=== PATIENT | male | born 1955 | race American Indian/Alaskan Native ===

== ENCOUNTER 2019-05-01 22:22 | Inpatient (IN) | payer MEDICARE ==
[2019-05-01] MEDS ORDERED: AMIDATE IV ONE (22:25)
[2019-05-01] MEDS ORDERED: ZEMURON IV ONE (22:25)
[2019-05-01] MEDS ORDERED: NACL 0.9% 1000 ML 1,000 ML ONE (22:35)
[2019-05-01] MEDS ORDERED: NACL 0.9% 1000 ML 1,000 ML IV ONE (22:49)
[2019-05-01] MEDS ORDERED: CORDARONE 900 MG in D5W 482 ML IV ONE (23:00)
[2019-05-01] MEDS ORDERED: CORDARONE 900 MG in NACL 0.9% 500 ML 482 ML IV ONE (23:00)
--- NOTE | 2019-05-01 23:02 | Emergency Department Report ---
ED Altered Mental Status HPI - General Stated Complaint: UNRESPONSIVE Time Seen by Provider: 05/01/19 22:49 Source: EMS - History of Present Illness Initial Comments: Patient is 63 years old male with history of CVA, status post tracheostomy and PEG tube which was removed. Patient also had history of seizures. Patient brought to the emergency room via EMS. EMS stated that the initial call came as seizure and when they arrived patient was seizing. EMS stated that he was given 5 mg of Versed and then patient stopped breathing and they started bagging the patient. EMS stated that patient found to be in SVT with a heart rate of 180 patient given adenosine 6 mg and then 12 mg. Upon arrival to the emergency room patient is unresponsive even to deep painful stimuli. Patient immediately intubated by me using a Glidoscope. Patient received synchronized cardioversion, 50 J with no response. Patient then responded to amiodarone 150 mg IV push. MD Complaint: altered mental status, decreased responsiveness -: Sudden - Related Data Home Medications Medication Instructions Recorded Confirmed Last Taken Baclofen [Lioresal] 10 mg PO TID 05/02/19 05/02/19 Unknown Potassium Chloride [K-Dur] 20 meq PO QDAY 05/02/19 05/02/19 Unknown Rivaroxaban [Xarelto] 20 mg PO QDAY 05/02/19 05/02/19 Unknown levETIRAcetam [Keppra TAB] 1,000 mg PO BID 05/02/19 05/02/19 Unknown Allergies Allergy/AdvReac Type Severity Reaction Status Date / Time No Known Allergies Allergy Unverified 05/01/19 22:41 ED Review of Systems ROS: Stated complaint: UNRESPONSIVE Other details as noted in HPI Comment: Unobtainable due to pts medical conditions ED Past Medical Hx - Medications Home Medications: Home Medications Medication Instructions Recorded Confirmed Last Taken Type Baclofen [Lioresal] 10 mg PO TID 05/02/19 05/02/19 Unknown History Potassium Chloride [K-Dur] 20 meq PO QDAY 05/02/19 05/02/19 Unknown History Rivaroxaban [Xarelto] 20 mg PO QDAY 05/02/19 05/02/19 Unknown History levETIRAcetam [Keppra TAB] 1,000 mg PO BID 05/02/19 05/02/19 Unknown History ED Physical Exam - General General appearance: obtunded - Head Head exam: Present: atraumatic, normocephalic, normal inspection - Eye Eye exam: Present: normal appearance - ENT ENT exam: Present: normal exam, normal orophraynx, mucous membranes moist - Neck Neck exam: Present: normal inspection - Respiratory Respiratory exam: Present: normal lung sounds bilaterally - Cardiovascular Cardiovascular Exam: Present: regular rate, normal rhythm, normal heart sounds - GI/Abdominal GI/Abdominal exam: Present: soft, normal bowel sounds. Absent: distended, gu arding, rebound, rigid, mass, bruit, pulsatile mass, hernia - Extremities Exam Extremities exam: Present: normal inspection - Back Exam Back exam: Present: normal inspection, full ROM - Neurological Exam Neurological exam: Present: altered - Level of Consciousness 1a. Level of Consciousness: coma/unresponsive - LOC Questions 1b. LOC Questions: answers no questions correctly - LOC Command 1c. LOC Commands: performs no tasks correctly - Best Gaze 2. Best Gaze: normal - Visual 3. Visual: no visual loss - Facial Palsy 4. Facial Palsy: normal symmetrical movement - Motor Arm 5a. Motor Arm Left: drift 5b. Motor Arm Right: drift - Motor Leg 6a. Motor Leg Left: drift 6b. Motor Leg Right: drift - Limb Ataxia 7. Limb Ataxia: absent - Sensory 8. Sensory: coma/unresponsive - Best Language 9. Best Language: mute/global aphasia - Dysarthria 10. Dysarthria: intubated or other barrier - Extinction and Inattention 11. Extinction/Inattention: no abnormality - Scoring Total Score: 16 Stroke Severity: Moderate to Severe Stroke ED Course Vital Signs 05/01/19 05/01/19 05/01/19 22:26 22:30 22:45 Temperature Pulse Rate 143 H 179 H 169 H Respiratory 15 11 L Rate Blood Pressure 122/92 154/114 O2 Sat by Pulse Oximetry 05/01/19 05/01/19 05/01/19 23:00 23:15 23:31 Temperature Pulse Rate 170 H 165 H 169 H Respiratory 18 18 20 Rate Blood Pressure 147/111 164/121 146/116 O2 Sat by Pulse Oximetry 05/01/19 05/02/19 05/02/19 23:45 00:00 00:27 Temperature Pulse Rate 159 H 167 H 180 H Respiratory 18 18 14 Rate Blood Pressure 156/120 169/124 169/124 O2 Sat by Pulse Oximetry 05/02/19 05/02/19 05/02/19 00:31 00:45 01:01 Temperature Pulse Rate 160 H 155 H 118 H Respiratory 18 27 H 20 Rate Blood Pressure 169/124 147/109 147/109 O2 Sat by Pulse Oximetry 05/02/19 05/02/19 05/02/19 01:15 02:55 02:57 Temperature Pulse Rate 115 H 100 H 97 H Respiratory 23 21 24 Rate Blood Pressure 169/124 116/75 112/73 O2 Sat by Pulse Oximetry 05/02/19 05/02/19 05/02/19 02:59 03:00 03:01 Temperature Pulse Rate 95 H 100 H 100 H Respiratory 21 24 24 Rate Blood Pressure 112/73 108/73 108/73 O2 Sat by Pulse Oximetry 05/02/19 05/02/19 05/02/19 03:02 03:03 03:05 Temperature Pulse Rate 98 H 98 H 100 H Respiratory 24 24 24 Rate Blood Pressure 109/70 109/70 109/66 O2 Sat by Pulse Oximetry 05/02/19 05/02/19 05/02/19 03:07 03:08 03:09 Temperature Pulse Rate 100 H 94 H 94 H Respiratory 24 24 24 Rate Blood Pressure 109/66 111/67 111/67 O2 Sat by Pulse Oximetry 05/02/19 05/02/19 05/02/19 03:11 03:12 03:13 Temperature Pulse Rate 95 H 96 H 99 H Respiratory 21 24 24 Rate Blood Pressure 111/67 115/71 115/71 O2 Sat by Pulse Oximetry 05/02/19 05/02/19 05/02/19 03:14 03:15 03:17 Temperature Pulse Rate 96 H 93 H 98 H Respiratory 24 24 24 Rate Blood Pressure 116/72 116/72 116/72 O2 Sat by Pulse Oximetry 05/02/19 05/02/19 05/02/19 03:18 03:19 03:20 Temperature Pulse Rate 95 H 96 H 100 H Respiratory 24 21 24 Rate Blood Pressure 120/74 120/74 121/77 O2 Sat by Pulse Oximetry 05/02/19 05/02/19 05/02/19 03:21 03:23 03:24 Temperature Pulse Rate 96 H 94 H 95 H Respiratory 24 24 24 Rate Blood Pressure 121/77 121/77 121/79 O2 Sat by Pulse Oximetry 05/02/19 05/02/1905/02/19 03:25 03:27 03:29 Temperature Pulse Rate 96 H 97 H 93 H Respiratory 18 24 24 Rate Blood Pressure 121/79 112/72 122/73 O2 Sat by Pulse Oximetry 05/02/19 05/02/19 05/02/19 03:31 03:33 03:35 Temperature Pulse Rate 91 H 94 H 96 H Respiratory 24 24 24 Rate Blood Pressure 122/73 118/66 118/66 O2 Sat by Pulse Oximetry 05/02/19 05/02/19 05/02/19 03:37 03:39 03:41 Temperature Pulse Rate 95 H 95 H 94 H Respiratory 24 24 24 Rate Blood Pressure 122/64 112/54 112/54 O2 Sat by Pulse Oximetry 05/02/19 05/02/19 05/02/19 03:42 03:43 03:44 Temperature Pulse Rate 92 H 93 H 91 H Respiratory 24 24 24 Rate Blood Pressure 112/49 112/49 110/79 O2 Sat by Pulse Oximetry 05/02/19 05/02/19 05/02/19 03:45 03:47 03:48 Temperature Pulse Rate 92 H 90 97 H Respiratory 25 H 24 23 Rate Blood Pressure 110/79 110/79 112/85 O2 Sat by Pulse Oximetry 05/02/19 05/02/19 05/02/19 03:49 03:51 03:53 Temperature Pulse Rate 95 H 93 H 95 H Respiratory 24 24 18 Rate Blood Pressure 112/85 110/75 110/75 O2 Sat by Pulse Oximetry 05/02/19 05/02/19 05/02/19 03:54 03:55 03:57 Temperature Pulse Rate 94 H 96 H 96 H Respiratory 24 24 24 Rate Blood Pressure 113/68 113/68 110/73 O2 Sat by Pulse Oximetry 05/02/19 05/02/19 05/02/19 03:59 04:00 04:01 Temperature Pulse Rate 94 H 94 H 94 H Respiratory 24 24 24 Rate Blood Pressure 110/73 109/48 109/48 O2 Sat by Pulse Oximetry 05/02/19 05/02/19 05/02/19 04:02 04:03 04:05 Temperature Pulse Rate 94 H 95 H 95 H Respiratory 24 22 24 Rate Blood Pressure 105/67 105/67 105/67 O2 Sat by Pulse Oximetry 05/02/19 05/02/19 05/02/19 04:11 04:20 04:31 Temperature Pulse Rate 91 H 92 H 94 H Respiratory 24 15 22 Rate Blood Pressure 118/43 119/78 121/82 O2 Sat by Pulse Oximetry 05/02/19 05/02/19 05/02/19 04:41 04:47 04:50 Temperature Pulse Rate 95 H 110 H 96 H Respiratory 24 16 Rate Blood Pressure 117/83 116/83 O2 Sat by Pulse 100 Oximetry 05/02/19 05:15 Temperature 100.9 F H Pulse Rate Respiratory Rate Blood Pressure O2 Sat by Pulse Oximetry - Consultations Consultation #1: 05/02/19 00:36 I discussed the patient is Dr. Jo, from [facility]. He advised to shock the patient with 200 J. - Lab Data Result diagrams: 05/04/19 03:04 05/04/19 05:24 Lab Results 05/01/19 05/01/19 05/01/19 Range/Units 01:06 23:09 23:09 WBC (4.5-11.0) K/mm3 RBC (3.65-5.03) M/mm3 Hgb (11.8-15.2) gm/dl Hct (35.5-45.6) % MCV (84-94) fl MCH (28-32) pg MCHC (32-34) % RDW (13.2-15.2) % Plt Count (140-440) K/mm3 Lymph % (Auto) (13.4-35.0) % [place] % (Auto) (0.0-7.3) % Eos % (Auto) (0.0-4.3) % Baso % (Auto) (0.0-1.8) % Lymph # (1.2-5.4) K/mm3 [place] # (0.0-0.8) K/mm3 Eos # (0.0-0.4) K/mm3 Baso # (0.0-0.1) K/mm3 Seg Neutrophils % (40.0-70.0) % Seg Neutrophils # (1.8-7.7) K/mm3 PT 22.6 H (12.2-14.9) Sec. INR 2.04 H (0.87-1.13) APTT 28.6 (24.2-36.6) Sec. ABG pH 7.275 L (7.350-7.450) pH Units ABG pCO2 42.8 mm Hg ABG pO2 267.9 H (80.0-90.0) mm Hg ABG HCO3 19.4 L (20.0-26.0) mmol/L ABG O2 Saturation 99.4 H (95.0-99.0) % ABG O2 Content 22.5 (0.0-44) ABG Base Excess -7.2 L (-2.0-3.0) mmol/L ABG Hemoglobin 15.9 (14.0-18.0) gm/dl ABG Carboxyhemoglobin 1.0 (0.0-5.0) % ABG Methemoglobin 0.6 (0.0-1.5) % Oxyhemoglobin 97.8 (95.0-99.0) % FiO2 10 % Sodium (137-145) mmol/L Potassium (3.6-5.0) mmol/L Chloride (98-107) mmol/L Carbon Dioxide (22-30) mmol/L Anion Gap mmol/L BUN (9-20) mg/dL Creatinine (0.8-1.5) mg/dL Estimated GFR ml/min BUN/Creatinine Ratio % Glucose (75-100) mg/dL Lactic Acid 1.70 (0.7-2.0) mmol/L Calcium (8.4-10.2) mg/dL Total Creatine Kinase (55-170) units/L CK-MB (CK-2) (0.0-4.0) ng/mL CK-MB (CK-2) Rel Index (0-4) Troponin T (0.00-0.029) ng/mL NT-Pro-B Natriuret Pep (0-900) pg/mL 05/01/19 05/01/19 05/02/19 Range/Units 23:10 23:10 01:32 WBC 9.3 (4.5-11.0) K/mm3 RBC 5.36 H (3.65-5.03) M/mm3 Hgb 16.2 H (11.8-15.2) gm/dl Hct 49.9 H (35.5-45.6) % MCV 93 (84-94) fl MCH 30 (28-32) pg MCHC 33 (32-34) % RDW 15.4 H (13.2-15.2) % Plt Count 125 L (140-440) K/mm3 Lymph % (Auto) 5.7 L (13.4-35.0) % [place] % (Auto) 4.1 (0.0-7.3) % Eos % (Auto) 0.0 (0.0-4.3) % Baso % (Auto) 0.2 (0.0-1.8) % Lymph # 0.5 L (1.2-5.4) K/mm3 [place] # 0.4 (0.0-0.8) K/mm3 Eos # 0.0 (0.0-0.4) K/mm3 Baso # 0.0 (0.0-0.1) K/mm3 Seg Neutrophils % 90.0 H (40.0-70.0) % Seg Neutrophils # 8.4 H (1.8-7.7) K/mm3 PT (12.2-14.9) Sec. INR (0.87-1.13) APTT (24.2-36.6) Sec. ABG pH (7.350-7.450) pH Units ABG pCO2 mm Hg ABG pO2 (80.0-90.0) mm Hg ABG HCO3 (20.0-26.0) mmol/L ABG O2 Saturation (95.0-99.0) % ABG O2 Content (0.0-44) ABG Base Excess (-2.0-3.0) mmol/L ABG Hemoglobin (14.0-18.0) gm/dl ABG Carboxyhemoglobin (0.0-5.0) % ABG Methemoglobin (0.0-1.5) % Oxyhemoglobin (95.0-99.0) % FiO2 % Sodium (137-145) mmol/L Potassium (3.6-5.0) mmol/L Chloride (98-107) mmol/L Carbon Dioxide (22-30) mmol/L Anion Gap mmol/L BUN (9-20) mg/dL Creatinine (0.8-1.5) mg/dL Estimated GFR ml/min BUN/Creatinine Ratio % Glucose (75-100) mg/dL Lactic Acid (0.7-2.0) mmol/L Calcium (8.4-10.2) mg/dL Total Creatine Kinase (55-170) units/L CK-MB (CK-2) (0.0-4.0) ng/mL CK-MB (CK-2) Rel Index (0-4) Troponin T < 0.010 (0.00-0.029) ng/mL NT-Pro-B Natriuret Pep 1146 H (0-900) pg/mL 05/02/19 05/02/19 05/02/19 Range/Units 02:44 02:44 02:44 WBC 8.9 (4.5-11.0) K/mm3 RBC 5.03 (3.65-5.03) M/mm3 Hgb 15.3 H (11.8-15.2) gm/dl Hct 45.9 H (35.5-45.6) % MCV 91 (84-94) fl MCH 31 (28-32) pg MCHC 33 (32-34) % RDW 14.9 (13.2-15.2) % Plt Count 122 L (140-440) K/mm3 Lymph % (Auto) 5.3 L (13.4-35.0) % [place] % (Auto) 5.1 (0.0-7.3) % Eos % (Auto) 0.0 (0.0-4.3) % Baso % (Auto) 0.3 (0.0-1.8) % Lymph # 0.5 L (1.2-5.4) K/mm3 [place] # 0.5 (0.0-0.8) K/mm3 Eos # 0.0 (0.0-0.4) K/mm3 Baso # 0.0 (0.0-0.1) K/mm3 Seg Neutrophils % 89.3 H (40.0-70.0) % Seg Neutrophils # 8.0 H (1.8-7.7) K/mm3 PT (12.2-14.9) Sec. INR (0.87-1.13) APTT (24.2-36.6) Sec. ABG pH (7.350-7.450) pH Units ABG pCO2 mm Hg ABG pO2 (80.0-90.0) mm Hg ABG HCO3 (20.0-26.0) mmol/L ABG O2 Saturation (95.0-99.0) % ABG O2 Content (0.0-44) ABG Base Excess (-2.0-3.0) mmol/L ABG Hemoglobin (14.0-18.0) gm/dl ABG Carboxyhemoglobin (0.0-5.0) % ABG Methemoglobin (0.0-1.5) % Oxyhemoglobin (95.0-99.0) % FiO2 % Sodium 137 (137-145) mmol/L Potassium 5.0 (3.6-5.0) mmol/L Chloride 102.2 (98-107) mmol/L Carbon Dioxide 22 (22-30) mmol/L Anion Gap 18 mmol/L BUN 24 H (9-20) mg/dL Creatinine 1.5 (0.8-1.5) mg/dL Estimated GFR 57 ml/min BUN/Creatinine Ratio 16 % Glucose 263 H (75-100) mg/dL Lactic Acid (0.7-2.0) mmol/L Calcium 8.9 (8.4-10.2) mg/dL Total Creatine Kinase 100 (55-170) units/L CK-MB (CK-2) 2.1 (0.0-4.0) ng/mL CK-MB (CK-2) Rel Index 2.1 (0-4) Troponin T < 0.010 (0.00-0.029) ng/mL NT-Pro-B Natriuret Pep (0-900) pg/mL - EKG Data -: EKG Interpreted by Me Rate: tachycardia - Radiology Data Radiology results: report reviewed Radiology Impressions Echocardiogram 05/02/19 02:28 Transthoracic Echocardiogram Indication: SVT BP: 120/84 HR: 93 Conclusions *The right atrium is mildly dilated. *There is trace mitral regurgitation. *There is trace tricuspid regurgitation. *The left ventricular chamber size is normal. *Global left ventricular systolic function is severely decreased. *The estimated ejection fraction is 20-25%. *The left ventricular diastolic filling pattern is restrictive. *The right ventricle is not well visualized. *The right ventricle is mildly dilated. *Right ventricular global systolic function appears mildly reduced. Findings Procedure Info: The study quality is technically difficult. The study is technically limited due to poor acoustic windows. Left Ventricle: The left ventricular chamber size is normal. Severe global hypokinesis of the left ventricle is observed. Global left ventricular systolic function is severely decreased. The estimated ejection fraction is 20-25%. The left ventricular diastolic filling pattern is restrictive. Left Atrium: The left atrium is normal in size with no visual thrombus identified. Right Ventricle: The right ventricle is not well visualized. The right ventricle is mildly dilated. The right ventricular global systolic function is mildly reduced. Right Atrium: The right atrium is mildly dilated. Aortic Valve: The aortic valve is not well visualized. There is no evidence of aortic regurgitation. There is no evidence of aortic stenosis. Mitral Valve: The mitral valve leaflets are mildly thickened. There is trace of mitral regurgitation. Tricuspid Valve: The tricuspid valve is not well visualized. There is trace tricuspid regurgitation. The right ventricular systolic pressure is calculated at 25 mmHg. Pulmonic Valve: The pulmonic valve is not well visualized. Pericardium: There is no pericardial effusion. Aorta: The aorta appears normal. There is no dilatation of the ascending aorta. There is no dilatation of the aortic root. Venous: The inferior vena cava is not visualized. Measurements Chambers 2D Name Value Normal Range IVSd (2D) 1.11 cm (0.6 - 1.1) LVPWd (2D) 1.04 cm (0.6 - 1.1) LVIDd (2D) 5.19 cm (3.7 - 5.6) LVIDs (2D) 4.65 cm (2 - 3.8) LV FS (2D) 10.48 % - EF Teichholz (2D) 22.72 % - Ao root diameter (2D) 3.09 cm (2 - 3.7) Volumes/Mass Name Value Normal Range LA ESV SP 4CH (A/L) 51.68 ml - LA ESV SP 2CH (A/L) 72.99 ml - LA ESV BP (A/L) 62.23 ml - LA ESV SP 4CH (MOD) 49.01 ml - LA ESV SP 2CH (MOD) 70.17 ml - Diastolic/Systolic Function Name Value Normal Range MV E-wave Vmax 0.85 m/sec - MV deceleration time 100.83 msec - MV A-wave Vmax 0.31 m/sec - MV E:A ratio 2.75 ratio - Aortic Valve Name Value Normal Range AV Vmax 0.87 m/sec - AV VTI 15.58 cm - AV peak gradient 3.03 mmHg - AV mean gradient 1.95 mmHg - LVOT diameter 2.24 cm - LVOT Vmax 0.7 m/sec - LVOT VTI 11.7 cm - LVOT peak gradient 1.97 mmHg - LVOT mean gradient 1.06 mmHg - SV LVOT 46.04 ml - STEPHENIE (continuity Vmax) 3.17 cm2 - STEPHENIE (continuity VTI) 2.95 cm2 - Mitral Valve Name Value Normal Range MR Vmax 4.58 m/sec - MR VTI 138.06 cm - Tricuspid Valve Name Value Normal Range TR Vmax 2.36 m/sec - TR peak gradient 22.19 mmHg - RAP 3 mmHg - RVSP 25 mmHg - Pulmonic Valve/Qp:Qs Name Value Normal Range PV acceleration time 110.37 msec - - Medical Decision Making Patient is 63 years old male with history of CVA, status post tracheostomy and PEG tube which was removed. Patient also had history of seizures. Patient brought to the emergency room via EMS. EMS stated that the initial call came as seizure and when they arrived patient was seizing. EMS stated that he was given 5 mg of Versed and then patient stopped breathing and they started bagging the patient. EMS stated that patient found to be in SVT with a heart rate of 180 patient given adenosine 6 mg and then 12 mg. Upon arrival to the emergency room patient is unresponsive even to deep painful stimuli. Patient immediately intubated by me using a Glidoscope. Patient received synchronized cardioversion, 50 J with no response. Patient then responded to amiodarone 150 mg IV push. Patient received 200 J of synchronized cardioversion. Patient converted to a sinus rhythm with a heart rate of 105. I discussed the patient with Dr Tracy Clark, she agreed to admit to the hospital for further management. Critical Care Time: Yes Critical care time in (mins) excluding proc time.: 45 Critical care attestation.: If time is entered above; I have spent that time in minutes in the direct care of this critically ill patient, excluding procedure time. ED Disposition Clinical Impression: Altered mental status, Sustained SVT Disposition: OP ADMIT IP TO THIS HOSP Is pt being admited?: Yes Condition: Stable
--- NOTE | 2019-05-01 23:27 | XRay Report ---
CHEST 1 VIEW INDICATION: intubation. COMPARISON: 10/06/2009. FINDINGS: Support devices: Endotracheal tube placement. The tip is high approximately 9.6 cm above the raman. Heart: Moderate cardiomegaly. Lungs/Pleura: Diminished lung volumes with basilar volume loss/atelectasis Additional findings: None. IMPRESSION: 1. Endotracheal tube 9.6 cm above the raman. 2. Diminished lung volumes with basilar volume loss plus/minus effusion. 3. Cardiomegaly. Signer Name: Curtis Villa MD Signed: 05/01/2019 11:23 PM Workstation Name: [id number]
[2019-05-02 00:15] LABS: Partial Thromboplastin Time 28.6 Sec. (24.2-36.6)
[2019-05-02 00:16] LABS: INR 2.04 (0.87-1.13)
--- NOTE | 2019-05-02 00:20 | XRay Report ---
CHEST 1 VIEW INDICATION: tube placement. COMPARISON: Earlier the same day. FINDINGS: Support devices: Satisfactory endotracheal tube placement. Heart: Stable cardiomegaly. Lungs/Pleura: Improving aeration at the bases. Additional findings: None. IMPRESSION: 1. Satisfactory endotracheal tube placement. 2. Improving aeration at the bases. Signer Name: Curtis Villa MD Signed: 05/02/2019 12:15 AM Workstation Name: [id number]
--- NOTE | 2019-05-02 00:53 | Cat Scan Report ---
CT head/brain wo con INDICATION: AMS. TECHNIQUE: All CT scans at this location are performed using the following dose modulation technique: Automated exposure control. CONTRAST: None. COMPARISON: CT brain 10/05/2018. FINDINGS: Interval large left MCA infarct with associated encephalomalacia and peripheral calcificati on. There is ex vacuo dilatation of the left lateral ventricle. Negative for new mass, stroke or hemo rrhage. Evaluation the bones demonstrates previous left craniotomy. IMPRESSION: 1. Large chronic left MCA infarct with associated encephalomalacia and ventricular dilatation. 2. Negative for acute abnormality. Signer Name: Curtis Villa MD Signed: 05/02/2019 12:49 AM Workstation Name: [id number]
[2019-05-02] MEDS ORDERED: VASELINE LIP THERAPY TP PRN (01:04)
[2019-05-02] MEDS ORDERED: ARTIFICIAL TEARS OPHTH OINT OU PRN (01:04)
[2019-05-02 01:37] LABS: ABG Base Excess -7.2 mmol/L (-2.0-3.0); ABG HCO3 19.4 mmol/L (20.0-26.0); ABG Methemoglobin 0.6 % (0.0-1.5); ABG Oxygen Saturation 99.4 % (95.0-99.0); ABG PCO2 42.8 mm Hg; ABG PH 7.275 pH Units (7.350-7.450)
[2019-05-02 01:42] LABS: Basophils % (Auto) 0.2 % (0.0-1.8); Hematocrit 49.9 % (35.5-45.6); Hemoglobin 16.2 gm/dl (11.8-15.2); Lymphocytes % (Auto) 5.7 % (13.4-35.0); Mean Corpuscular HGB Conc 33 % (32-34); Mean Corpuscular Volume 93 fl (84-94); Monocytes % (Auto) 4.1 % (0.0-7.3); Platelet Count 125 K/mm3 (140-440); Red Blood Count 5.36 M/mm3 (3.65-5.03); Red Cell Distribution Width 15.4 % (13.2-15.2)
[2019-05-02 01:43] LABS: Lymphocytes # (Auto) 0.5 K/mm3 (1.2-5.4); Monocytes # (Auto) 0.4 K/mm3 (0.0-0.8)
[2019-05-02 01:47] LABS: ABG PO2 267.9 mm Hg (80.0-90.0)
[2019-05-02] MEDS ORDERED: KEPPRA 1,000 MG/NS 0.75% 100ML 1,000 MG/100 ML BAG IV ONE (01:52)
[2019-05-02] MEDS ORDERED: DIPRIVAN 10 MG/ML 1,000 MG/100 ML BOTTLE IV SCH (02:00)
[2019-05-02] MEDS ORDERED: ZOFRAN IV PRN (02:25)
[2019-05-02] MEDS ORDERED: SODIUM CHLORIDE FLUSH SYRINGE 10 ML IV PRN (02:25)
[2019-05-02] MEDS ORDERED: VERSED IV PRN (02:34)
--- NOTE | 2019-05-02 02:37 | History and Physical Report ---
History of Present Illness Date of examination: 05/02/19 History of present illness: 63 -year-old man with a history of CVA with right-sided weakness, seizure, diabetes, A. fib was brought to the emergency room for evaluation. at bedside state that the granddaughter notified her that the patient is staring at the ceiling while she was talking to him. She went to check on him and found that he was twitching the left side and unresponsive. EMS was called, they gave him Versed for seizure. He was also found to be in SVT rate of 200, he was given adenosine 6 and 12, heart rate went from 180 to 200. In the emergency room he was shocked once with 50 J and intubated, his heart rate went to 150. He was shocked again at 200J, heart rate went to low 100s, started on amiodarone drip. Patient was started on sedation, review of system unobtainable PAST MEDICAL HISTORY:CVA with right-sided weakness, seizure, diabetes, A. fib PAST SURGICAL HISTORY:PEG FAMILY HISTORY:hypertension, diabetes SOCIAL HISTORY: Denies tobacco, drugs, alcohol Medications and Allergies Allergies Allergy/AdvReac Type Severity Reaction Status Date / Time No Known Allergies Allergy Unverified 05/01/19 22:41 Active Meds: Active Medications Acetaminophen (Tylenol) 650 mg PO Q4H PRN PRN Reason: Pain MILD(1-3)/Fever >100.5/FARLEY Hydrophilic Ointment (Vaseline Lip Therapy) 1 applic TP Q2HR PRN PRN Reason: Dry Lips Midazolam HCl 100 mg/ Sodium (Chloride) 100 mls @ 2 mls/hr IV TITR NEVIN; Protocol Midazolam HCl (Versed) 2 mg IV Q10MIN PRN PRN Reason: Sedation Multi-Ingred Cream/Lotion/Oil/Oint (Artificial Tears Ophth Oint) 1 applic OU Q4HR PRN PRN Reason: Dry Eye(s) Ondansetron HCl (Zofran) 4 mg IV Q8H PRN PRN Reason: Nausea And Vomiting Sodium Chloride (Sodium Chloride Flush Syringe 10 Ml) 10 ml IV BID NEVIN Sodium Chloride (Sodium Chloride Flush Syringe 10 Ml) 10 ml IV PRN PRN PRN Reason: LINE FLUSH Exam - Physical Exam Narrative exam: General Apperance: The patient lying in bed no acute distress, intubated HEENT: Normocephalic, atraumatic. Pupils equally round and reactive to light, unable to do extraocular movement intact, and no sclericterus or JVD or thyromegaly or nodule. Neck supple, no carotid bruit, mucous membranes moist, ET tube in place Heart: S1-S2, regular is rhythm Lungs: Clear to auscultation bilaterally, breathing comfortable Abdomen: Positive bowel sounds, soft, nondistended, no organomegaly Extremities: LE wounds, No edema cyanosis clubbing Skin: no rash, nodule, warm and dry Neuro: sedated - Constitutional Vitals: Temp Pulse Resp BP Pulse Ox 115 H 23 169/124 05/02/19 01:15 05/02/19 01:15 05/02/19 01:15 Results - Labs CBC & Chem 7: 05/02/19 02:44 Labs: Abnormal lab results 05/01/19 05/01/19 05/01/19 Range/Units 01:06 23:09 23:10 RBC (3.65-5.03) M/mm3 Hgb (11.8-15.2) gm/dl Hct (35.5-45.6) % RDW (13.2-15.2) % Plt Count (140-440) K/mm3 Lymph % (Auto) (13.4-35.0) % Lymph # (1.2-5.4) K/mm3 Seg Neutrophils % (40.0-70.0) % Seg Neutrophils # (1.8-7.7) K/mm3 PT 22.6 H (12.2-14.9) Sec. INR 2.04 H (0.87-1.13) ABG pH 7.275 L (7.350-7.450) pH Units ABG pO2 267.9 H (80.0-90.0) mm Hg ABG HCO3 19.4 L (20.0-26.0) mmol/L ABG O2 Saturation 99.4 H (95.0-99.0) % ABG Base Excess -7.2 L (-2.0-3.0) mmol/L NT-Pro-B Natriuret Pep 1146 H (0-900) pg/mL 05/02/19 Range/Units 01:32 RBC 5.36 H (3.65-5.03) M/mm3 Hgb 16.2 H (11.8-15.2) gm/dl Hct 49.9 H (35.5-45.6) % RDW 15.4 H (13.2-15.2) % Plt Count 125 L (140-440) K/mm3 Lymph % (Auto) 5.7 L (13.4-35.0) % Lymph # 0.5 L (1.2-5.4) K/mm3 Seg Neutrophils % 90.0 H (40.0-70.0) % Seg Neutrophils # 8.4 H (1.8-7.7) K/mm3 PT (12.2-14.9) Sec. INR (0.87-1.13) ABG pH (7.350-7.450) pH Units ABG pO2 (80.0-90.0) mm Hg ABG HCO3 (20.0-26.0) mmol/L ABG O2 Saturation (95.0-99.0) % ABG Base Excess (-2.0-3.0) mmol/L NT-Pro-B Natriuret Pep (0-900) pg/mL - Imaging and Cardiology EKG: image reviewed Chest x-ray: report reviewed CT Scan - head: report reviewed Assessment and Plan Assessment Acute respiratory failure SVT CVA with right-sided weakness seizure, acute on chronic diabetes A. fib Thrombocytopenia Plan Admit to medicine Continue amiodarone drip, check cardiac enzymes, echo Consult cardiology, critical care Change diprivan to versed, start iv fluid s/p loading dose of Keppra continue xarelto Fingersticks initiate insulin sliding scale DVT prophylaxis
[2019-05-02] MEDS ORDERED: VERSED IV ONE (02:41)
[2019-05-02 02:55] LABS: Basophils % (Auto) 0.3 % (0.0-1.8); Hematocrit 45.9 % (35.5-45.6); Hemoglobin 15.3 gm/dl (11.8-15.2); Lymphocytes # (Auto) 0.5 K/mm3 (1.2-5.4); Lymphocytes % (Auto) 5.3 % (13.4-35.0); Mean Corpuscular HGB Conc 33 % (32-34); Mean Corpuscular Volume 91 fl (84-94); Monocytes # (Auto) 0.5 K/mm3 (0.0-0.8); Monocytes % (Auto) 5.1 % (0.0-7.3); Platelet Count 122 K/mm3 (140-440); Red Blood Count 5.03 M/mm3 (3.65-5.03); Red Cell Distribution Width 14.9 % (13.2-15.2)
[2019-05-02] MEDS ORDERED: MIDAZOLAM 100 MG in NACL 0.9% 80 ML IV SCH (03:00)
[2019-05-02] MEDS ORDERED: VERSED IV NR ×2 (03:00→04:12)
[2019-05-02] MEDS ORDERED: D50W (25GM) Syringe IV PRN (03:04)
[2019-05-02 03:08] LABS: Calcium 8.9 mg/dL (8.4-10.2)
[2019-05-02 03:10] LABS: Creatine Kinase MB 2.1 ng/mL (0.0-4.0)
[2019-05-02] MEDS ORDERED: CORDARONE 900 MG in D5W 482 ML IV ONE (03:27)
[2019-05-02] MEDS ORDERED: NACL 0.9% 1000 ML 1,000 ML IV SCH (04:00)
[2019-05-02 06:08] LABS: ABG Base Excess -3.9 mmol/L (-2.0-3.0); ABG HCO3 19.2 mmol/L (20.0-26.0); ABG Methemoglobin 0.6 % (0.0-1.5); ABG Oxygen Saturation 99.3 % (95.0-99.0); ABG PCO2 30.1 mm Hg; ABG PH 7.424 pH Units (7.350-7.450); ABG PO2 212.5 mm Hg (80.0-90.0)
[2019-05-02] MEDS: HumaLOG SUB-Q SCH ×3 (06:29→18:50)
--- NOTE | 2019-05-02 08:29 | Event Note ---
Date: 05/02/19 Patient with acute respiratory failure, intubated, SVT on Amiodarone drip. I have seen and examined him. Continue current management.
--- NOTE | 2019-05-02 09:22 | XRay Report ---
ABDOMEN 1 VIEW(S) INDICATION / CLINICAL INFORMATION: OG tube placement. COMPARISON: Yesterday FINDINGS: TUBES / LINES: New OG tube with tip at the GE junction should be advanced another 5-10 cm. BOWEL GAS PATTERN: Gaseous distention of the bowel in the midabdomen. FREE AIR / EXTRALUMINAL GAS: None seen. ADDITIONAL FINDINGS: No significant additional findings. IMPRESSION: 1. OGT as above. Signer Name: Carlos Villar MD Signed: 05/02/2019 9:17 AM Workstation Name: [id number]
[2019-05-02] MEDS: ATIVAN IV PRN ×2 (09:44→21:13)
[2019-05-02] MEDS ORDERED: XARELTO PO SCH (10:00)
--- NOTE | 2019-05-02 10:41 | XRay Report ---
SUPINE ABDOMEN 10:11 AM INDICATION: OG tube placement. COMPARISON: Earlier the same day FINDINGS: Since the prior exam, esophagogastric tube has been advanced, tip and side-port are looped in the pro ximal stomach in satisfactory position. Advanced colonic distention is again noted, this appears to be the sigmoid. IMPRESSION: 1. Esophagogastric tube in satisfactory position. 2. There is marked gaseous distention of colon within the mid to lower abdomen. This appears to be di lated sigmoid. There is constipation proximal to this. Given the degree of dilatation, close follow-u p is recommended. This could be due to constipation/impaction. CT would be useful if there is clinica l concern for sigmoid volvulus. Signer Name: David Scanlon MD Signed: 05/02/2019 10:37 AM Workstation Name: [id number]
[2019-05-02 10:55] LABS: Creatine Kinase MB 2.1 ng/mL (0.0-4.0)
[2019-05-02] MEDS: PEPCID IV SCH ×2 (11:10→21:13)
[2019-05-02 11:20] LABS: Chol/HDL Ratio 2.03 %
[2019-05-02] MEDS ORDERED: KEPPRA 1,500 MG in D5W 100 ML IV SCH (12:00)
--- NOTE | 2019-05-02 12:19 | Consultation ---
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 Per , at bedside, patient was seen staring up towards the ceiling and "frozen" Per the this has happened before and she has been able to "talk him out of this", but this is the worst it has ever been. THe patient is suppose to be on BID keppra, 1k but has only been taking the dose once daily at the adult daycare he goes to. The deny any prior fever, headache or any complaints by the patient prior to being found the way he was. Per the he just went to go lie down after dinner. Per the notes, EMS gave versed 5mg and then the patient apparently became apenic and required intubation. He was then started on continuous infusion of versed. This was stopped by me this am. Patient is currently not awake and not following co mmands at bedside. Past History Past Medical History: atrial fib, diabetes, seizures, stroke Past Surgical History: Other (crainotomy at [facility] about 2-3 years ago) Social history: , lives with family Family history: no significant family history Medications and Allergies Allergies Allergy/AdvReac Type Severity Reaction Status Date / Time No Known Allergies Allergy Unverified 05/01/19 22:41 Home Medications Medication Instructions Recorded Confirmed Last Taken Type Baclofen [Lioresal] 10 mg PO TID 05/02/19 05/02/19 Unknown History Potassium Chloride [K-Dur] 20 meq PO QDAY 05/02/19 05/02/19 Unknown History Rivaroxaban [Xarelto] 20 mg PO QDAY 05/02/19 05/02/19 Unknown History levETIRAcetam [Keppra TAB] 1,000 mg PO BID 05/02/19 05/02/19 Unknown History Active Meds: Active Medications Acetaminophen (Tylenol) 650 mg PO Q4H PRN PRN Reason: Pain MILD(1-3)/Fever >100.5/FARLEY Dextrose (D50w (25gm) Syringe) 50 ml IV PRN PRN PRN Reason: Hypoglycemia Famotidine (Pepcid) 20 mg IV BID [facility] Hydrophilic Ointment (Vaseline Lip Therapy) 1 applic TP Q2HR PRN PRN Reason: Dry Lips Midazolam HCl 100 mg/ Sodium (Chloride) 100 mls @ 2 mls/hr IV TITR [facility]; Pr otocol Last Titration: 05/02/19 08:35 Dose: 0 mg/hr, 0 mls/hr Documented by: Sodium Chloride (Nacl 0.9% 1000 Ml) 1,000 mls @ 100 mls/hr IV DIRECT [facility] Last Admin: 05/02/19 06:34 Dose: 100 mls/hr Documented by: Levetiracetam 1,000 mg/ (Dextrose) 110 mls @ 400 mls/hr IV Q12HR [facility] Insulin Human Lispro (Humalog) 0 unit SUB-Q Q6HR [facility]; Protocol Last Admin: 05/02/19 06:29 Dose: 3 unit Documented by: Lorazepam (Ativan) 1 mg IV Q4H PRN PRN Reason: Agitation Last Admin: 05/02/19 09:44 Dose: 1 mg Documented by: Midazolam HCl (Versed) 2 mg IV Q10MIN PRN PRN Reason: Sedation Multi-Ingred Cream/Lotion/Oil/Oint (Artificial Tears Ophth Oint) 1 applic OU Q4HR PRN PRN Reason: Dry Eye(s) Ondansetron HCl (Zofran) 4 mg IV Q8H PRN PRN Reason: Nausea And Vomiting Rivaroxaban (Xarelto) 20 mg PO DAILY [facility]; Protocol Sodium Chloride (Sodium Chloride Flush Syringe 10 Ml) 10 ml IV BID [facility] Sodium Chloride (Sodium Chloride Flush Syringe 10 Ml) 10 ml IV PRN PRN PRN Reason: LINE FLUSH Review of Systems ROS unobtainable: due to endotracheal tube, due to mental status Physical Examination Vital signs: Vital Signs Pulse 143 H 05/01/19 22:26 General appearance: appears uncomfortable, other (obtunded) ENT: other (orally intubated and sedated) Neck: supple Effort: normal Ascultation: Bilateral: clear Percussion: Bilateral: not dull Cardiovascular: regular rate and rhythm Gastrointestinal: soft, non-tender Extremities: no edema, pink and warm, pulses normal unable to assess Results - Laboratory Findings CBC and BMP: 05/02/19 02:44 05/02/19 02:44 ABG ABG pH 7.424 pH Units (7.350-7.450) 05/02/19 Unknown ABG pCO2 30.1 mm Hg 05/02/19 Unknown ABG pO2 212.5 mm Hg (80.0-90.0) H 05/02/19 Unknown ABG O2 Saturation 99.3 % (95.0-99.0) H 05/02/19 Unknown PT/INR, D-dimer PT 22.6 Sec. (12.2-14.9) H 05/01/19 23:09 INR 2.04 (0.87-1.13) H 05/01/19 23:09 Abnormal lab findings: Abnormal Labs 05/01/19 05/01/19 05/01/19 01:06 23:09 23:10 RBC Hgb Hct RDW Plt Count Lymph % (Auto) Lymph # Seg Neutrophils % Seg Neutrophils # PT 22.6 H INR 2.04 H ABG pH 7.275 L ABG pO2 267.9 H ABG HCO3 19.4 L ABG O2 Saturation 99.4 H ABG Base Excess -7.2 L BUN Glucose POC Glucose Troponin T NT-Pro-B Natriuret Pep 1146 H HDL Cholesterol 05/02/19 05/02/19 05/02/19 01:32 02:44 02:44 RBC 5.36 H Hgb 16.2 H 15.3 H Hct 49.9 H 45.9 H RDW 15.4 H Plt Count 125 L 122 L Lymph % (Auto) 5.7 L 5.3 L Lymph # 0.5 L 0.5 L Seg Neutrophils % 90.0 H 89.3 H Seg Neutrophils # 8.4 H 8.0 H PT INR ABG pH ABG pO2 ABG HCO3 ABG O2 Saturation ABG Base Excess BUN 24 H Glucose 263 H POC Glucose Troponin T NT-Pro-B Natriuret Pep HDL Cholesterol 05/02/19 05/02/19 05/02/19 06:11 10:20 Unknown RBC Hgb Hct RDW Plt Count Lymph % (Auto) Lymph # Seg Neutrophils % Seg Neutrophils # PT INR ABG pH ABG pO2 212.5 H ABG HCO3 19.2 L ABG O2 Saturation 99.3 H ABG Base Excess -3.9 L BUN Glucose POC Glucose 215 H Troponin T 0.031 H D NT-Pro-B Natriuret Pep HDL Cholesterol 62 H - Diagnostic Findings Chest x-ray: image reviewed (no acute intraparenchymal lung diseae. Cardiomegaly) Assessment and Plan 63 y/o male with acute respiratory failure, secondary to medication administration to abort seizure or seizure like activity with subsequent SVT and required cardioversion in the ED per reports. 1. neuro-will restart keppra 1000 BID. stop versed drip. Will obtain EEG and needs neurology consult. 2. Resp-Continue to wean FiO2 on vent for sats >88% 3. CV-rate appears to be controlled and sinus. Still on amio drip. Cards to see. In light of current neurologic status would prefer to hold anticoagulation if ok with cards. Also, need to find out more about CV history from . Has Spironolactone bottle that is empty in her bag. She isn't sure why he takes it. 4. asked to speak with primary Waylon as to why patient takes baclofen 5. Continue q6hour fingersticks. Will start to feed. Has diabetes per and is on lantus although not listed. CCT 31 minutes.
[2019-05-02] MEDS: KEPPRA 1,000 MG in D5W 100 ML IV SCH ×2 (12:24→22:00)
[2019-05-02] MEDS: SODIUM CHLORIDE FLUSH SYRINGE 10 ML IV SCH ×2 (12:25→21:16)
--- NOTE | 2019-05-02 13:12 | Event Note ---
Date: 05/02/19 We will defer cardiac consultation and management to the patient's primary blanket cutter hand, Dr Ocasio.
--- NOTE | 2019-05-02 14:20 | Consultation ---
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 He is followed in our office by Dr. Ocasio. Pt is intubated and nonresponsive on evaluation and thus HPI is obtained per the chart. Pt presented for evaluation after being found unresponsive at home by his and grandchildren. Per , patient was seen staring up towards the ceiling and "frozen". Per the this has happened before and she has been able to "talk him out of this", but this is the worst it has ever been. THe patient is supposed to be on BID keppra, but has only been taking keppra once daily at the adult daycare he goes to. Per the notes, EMS gave versed 5mg and then the patient apparently became apenic and required intubation. He was then started on continuous infusion of versed which was d/c'd this AM. Patient is currently not awake and not following commands at bedside. Pt was also noted to be in AFib with RVR on arrival and thus was initiated on amio gtt overnight. On evaluation, pt is in [facility] with [facility]. Amio gtt has been d/c'd. Echo done 10/2017 showed EF 55%, RA mildly dilated, trace MR, mod TR. LHC 2003 showed normal coronaries. Past History Past Medical History: atrial fib, diabetes, hypertension, seizures, stroke Past Surgical History: Other ( hemicraniectomy and evacuation in 2013) Social history: , lives with family Family history: no significant family history Medications and Allergies Allergies Allergy/AdvReac Type Severity Reaction Status Date / Time No Known Allergies Allergy Unverified 05/01/19 22:41 Home Medications Medication Instructions Recorded Confirmed Last Taken Type Baclofen [Lioresal] 10 mg PO TID 05/02/19 05/02/19 Unknown History Potassium Chloride [K-Dur] 20 meq PO QDAY 05/02/19 05/02/19 Unknown History Rivaroxaban [Xarelto] 20 mg PO QDAY 05/02/19 05/02/19 Unknown History levETIRAcetam [Keppra TAB] 1,000 mg PO BID 05/02/19 05/02/19 Unknown History Active Meds: Active Medications Acetaminophen (Tylenol) 650 mg PO Q4H PRN PRN Reason: Pain MILD(1-3)/Fever >100.5/FARLEY Dextrose (D50w (25gm) Syringe) 50 ml IV PRN PRN PRN Reason: Hypoglycemia Famotidine (Pepcid) 20 mg IV BID [facility] Last Admin: 05/02/19 11:10 Dose: 20 mg Documented by: Hydrophilic Ointment (Vaseline Lip Therapy) 1 applic TP Q2HR PRN PRN Reason: Dry Lips Midazolam HCl 100 mg/ Sodium (Chloride) 100 mls @ 2 mls/hr IV TITR [facility]; Protocol Last Titration: 05/02/19 08:35 Dose: 0 mg/hr, 0 mls/hr Documented by: Sodium Chloride (Nacl 0.9% 1000 Ml) 1,000 mls @ 100 mls/hr IV DIRECT [facility] Last Infusion: 05/02/19 12:00 Dose: 0 mls/hr Documented by: Levetiracetam 1,000 mg/ (Dextrose) 110 mls @ 400 mls/hr IV Q12HR [facility] Last Admin: 05/02/19 12:24 Dose: 400 mls/hr Documented by: Insulin Human Lispro (Humalog) 0 unit SUB-Q Q6HR [facility]; Protocol Last Admin: 05/02/19 13:00 Dose: Not Given Documented by: Lorazepam (Ativan) 1 mg IV Q4H PRN PRN Reason: Agitation Last Admin: 05/02/19 09:44 Dose: 1 mg Documented by: Midazolam HCl (Versed) 2 mg IV Q10MIN PRN PRN Reason: Sedation Multi-Ingred Cream/Lotion/Oil/Oint (Artificial Tears Ophth Oint) 1 applic OU Q4HR PRN PRN Reason: Dry Eye(s) Ondansetron HCl (Zofran) 4 mg IV Q8H PRN PRN Reason: Nausea And Vomiting Sodium Chloride (Sodium Chloride Flush Syringe 10 Ml) 10 ml IV BID [facility] Last Admin: 05/02/19 12:25 Dose: 10 ml Documented by: Sodium Chloride (Sodium Chloride Flush Syringe 10 Ml) 10 ml IV PRN PRN PRN Reason: LINE FLUSH Review of Systems ROS unobtainable: due to endotracheal tube, due to mental status Physical Examination Vital Signs Pulse 143 H 05/01/19 22:26 General appearance: other (intubated, unresponsive) Cardiac: Positive: Reg Rate and Rhythm, S1/S2 Lungs: Positive: Decreased Breath Sounds, Oxygen, Ventilated Respirations Neuro: Positive: Other (intubated, unresponsive) Skin: Negative: Rash, Wound Extremities: Absent: edema Results 05/02/19 02:44 05/02/19 02:44 Cardiac Enzymes 05/02/19 05/02/19 Range/Units 02:44 10:20 CK-MB (CK-2) 2.1 2.1 (0.0-4.0) ng/mL Coagulation 05/01/19 Range/Units 23:09 PT 22.6 H (12.2-14.9) Sec. INR 2.04 H (0.87-1.13) APTT 28.6 (24.2-36.6) Sec. Lipids 05/02/19 Range/Units 10:20 Triglycerides 47 (2-149) mg/dL Cholesterol 126 (50-199) mg/dL HDL Cholesterol 62 H (40-59) mg/dL Cholesterol/HDL Ratio 2.03 % CBC 05/02/19 05/02/19 Range/Units 01:32 02:44 WBC 9.3 8.9 (4.5-11.0) K/mm3 RBC 5.36 H 5.03 (3.65-5.03) M/mm3 Hgb 16.2 H 15.3 H (11.8-15.2) gm/dl Hct 49.9 H 45.9 H (35.5-45.6) % Plt Count 125 L 122 L (140-440) K/mm3 Lymph # 0.5 L 0.5 L (1.2-5.4) K/mm3 Eddy # 0.4 0.5 (0.0-0.8) K/mm3 Eos # 0.0 0.0 (0.0-0.4) K/mm3 Baso # 0.0 0.0 (0.0-0.1) K/mm3 Comprehensive Metabolic Panel 05/02/19 Range/Units 02:44 Sodium 137 (137-145) mmol/L Potassium 5.0 (3.6-5.0) mmol/L Chloride 102.2 (98-107) mmol/L Carbon Dioxide 22 (22-30) mmol/L BUN 24 H (9-20) mg/dL Creatinine 1.5 (0.8-1.5) mg/dL Glucose 263 H (75-100) mg/dL Calcium 8.9 (8.4-10.2) mg/dL - Imaging and Cardiology Echo: pending, report reviewed (10/2017 showed EF 55%, RA mildly dilated, trace MR, mod TR. ) Cardiac cath: report reviewed (2003 showed normal coronaries. ) EKG: report reviewed, image reviewed EKG interpretations - Telemetry EKG Rhythm: Sinus Rhythm - EKG Supraventricular dysrhythmia: atrial fibrillation Assessment and Plan Patient with altered mental status, seizure disorder, acute respiratory failure, h/o AFib. Head CT NAF. Pt was noted to be in AFib with RVR on arrival and thus was initiated on amio gtt overnight. On evaluation, pt is in SR with [facility] PACs. Amio gtt has been d/c'd. Resume home lopressor. Pt was taking Xarelto for systemic AC in regards to AFib at home. His INR was 2.04 on admission, will continue to monitor and consider resuming systemic AC (either Xarelto or heparin gtt) if no contraindication. Obtain echo. Further recs to follow per hospital course. The patient has been seen in conjunction with Dr. Ocasio who agrees with the assessment and plan of care. - Patient Problems (1) Seizure disorder Current Visit: Yes Status: Acute (2) Altered mental status Current Visit: Yes Status: Acute (3) Acute respiratory failure Current Visit: Yes Status: Acute (4) Atrial fibrillation with RVR Current Visit: Yes Status: Acute (5) History of CVA (cerebrovascular accident) Current Visit: Yes Status: Chronic (6) Status post craniectomy Current Visit: Yes Status: Chronic (7) HTN (hypertension) Current Visit: Yes Status: Acute (8) Diabetes Current Visit: Yes Status: Acute (9) History of cardiomyopathy Current Visit: Yes Status: Chronic (10) Normal coronary arteries Current Visit: Yes Status: Chronic
[2019-05-02] MEDS ORDERED: SIMPLE SYRUP FEEDTUBE PRN ×2 (14:30)
[2019-05-02] MEDS ORDERED: SODIUM BICARBONATE FEEDTUBE PRN (14:30)
[2019-05-02] MEDS ORDERED: PANCREAZE DR 10,500 UNIT FEEDTUBE PRN (14:30)
[2019-05-02] MEDS: CORDARONE PO SCH ×2 (18:50→20:35)
[2019-05-02 20:17] LABS: Bilirubin,Urine NEG (Negative); Blood,Urine NEG (Negative); Color,Urine Yellow (Yellow); Granular Casts,Urine 6 /LPF; Hyaline Casts,Urine 8 /LPF; Mucus,Urine 1+ /HPF; Urobilinogen,Urine < 2.0 mg/dL (<2.0)
--- NOTE | 2019-05-02 21:06 | Electroencephalogram Report ---
Electroencephalogram EEG Date of exam: 05/02/19 History: Patient is a 63-year-old man with a history of stroke, history of seizures, atrial fibrillation, diabetes mellitus, presented seizure-like activity, developed acute respiratory failure, and SVT. Impression: Impression: 1. Generalized slowing. 2. No seizures or epileptiform discharges noted. Description: Description: The background shows a 6 Hz theta activity that has low amplitude. Additional low voltage beta occur symmetrically at the anterior head regions bilaterally. There are is notable increased slowing in left temporo-parietal regions as compared to left. Intermittent photic stimulation was not performed. Hyperventilation not performed. Throughout, the recording there are no epileptiform abnormalities. Interpretation: Interpretation: This routine EEG performed is abnormal secondary to above findings and is consistent with bihemispheric dysfunction and encephalopathy. The above described finding of diffuse slowing is etiologically nonspecific and similar findings have been reported in cases of toxic, metabolic, hypoxic ischemic, infectious, medication, sleep deprivation, dementia, postictal state, and other causes of diffuse and multifocal encephalopathy. The above finding of asymmetric focal slowing and left temporal parietal regions greater than right may be associated with underlying structural lesions (including but not limited to stroke, neoplasm, bleed, trauma, infection) or functional abnormalities (i.e. migraine, postictal state, etc.) affecting the underlying white matter. Clinical correlation required.
[2019-05-02 21:08] LABS: Amphetamine Screen,Urine PRESUMPTIVE NEGATIVE; Cannabinoid Screen,Urine PRESUMPTIVE NEGATIVE; Cocaine Screen,Urine PRESUMPTIVE NEGATIVE; Methadone Screen,Urine PRESUMPTIVE NEGATIVE; Opiate Screen,Urine PRESUMPTIVE NEGATIVE
[2019-05-02] MEDS: TYLENOL PO PRN (21:08)
[2019-05-02] MEDS: LOPRESSOR PO SCH (21:11)
[2019-05-02 22:04] LABS: Benzodiazepines Screen,Urine PRESUMPTIVE POSITIVE
--- NOTE | 2019-05-03 02:52 | XRay Report ---
CHEST 1 VIEW INDICATION: follow up respiratory failure. COMPARISON: 12/30/2018. FINDINGS: Support devices: NG tube unchanged. Heart: Stable cardiomegaly. Lungs/Pleura: Lung bases are now clear. Additional findings: None. IMPRESSION: Lung base is now clear. Signer Name: Curtis Villa MD Signed: 05/03/2019 2:48 AM Workstation Name: [email or web address]
[2019-05-03] MEDS: ATIVAN IV PRN (04:49)
[2019-05-03 04:52] LABS: ABG Base Excess -1.4 mmol/L (-2.0-3.0); ABG HCO3 20.6 mmol/L (20.0-26.0); ABG Methemoglobin 0.6 % (0.0-1.5); ABG Oxygen Saturation 99.3 % (95.0-99.0); ABG PCO2 28.8 mm Hg; ABG PH 7.472 pH Units (7.350-7.450); ABG PO2 206.8 mm Hg (80.0-90.0)
[2019-05-03 05:44] LABS: Hematocrit 42.5 % (35.5-45.6); Hemoglobin 14.3 gm/dl (11.8-15.2); Mean Corpuscular HGB Conc 34 % (32-34); Mean Corpuscular Volume 90 fl (84-94); Red Blood Count 4.72 M/mm3 (3.65-5.03); Red Cell Distribution Width 14.8 % (13.2-15.2)
[2019-05-03 05:45] LABS: Platelet Count 87 K/mm3 (140-440)
[2019-05-03 05:53] LABS: INR 3.77 (0.87-1.13)
[2019-05-03 06:08] LABS: Calcium 8.6 mg/dL (8.4-10.2)
--- NOTE | 2019-05-03 09:05 | Progress Note ---
Assessment and Plan Assessment and plan: 63 -year-old man with a history of CVA with right-sided weakness, seizure, diabetes, A. fib was brought to the emergency room for evaluation. at bedside state that the granddaughter notified her that the patient is staring at the ceiling while she was talking to him. She went to check on him and found that he was twitching the left side and unresponsive. EMS was called, they gave him Versed for seizure. He was also found to be in SVT rate of 200, he was given adenosine 6 and 12, heart rate went from 180 to 200. In the emergency room he was shocked once with 50 J and intubated, his heart rate went to 150. He was shocked again at 200J, heart rate went to low 100s, started on amiodarone drip. Acute respiratory failure Intubated, on vent Pulm following SVT On amiodarone. cardiology following CVA with residual right-sided weakness seizure disorder Seizures Cont Keppra Diabetes mellitus type 2 Fingerstick Qac and hs A. fib Thrombocytopenia Monitor Full code status History Interval history: Still intubated Hospitalist Physical - Physical exam Narrative exam: Gen: Not in acute distress, lying in bed, obese,intubated HEENT: Normocephalic, atraumatic Neck: supple, no JVD Heart: S1 and S2 reg, no murmurs, rubs or gallop Lungs: Clear to auscultation, no rhonchi, no wheeze Abd: soft, non tender, non distended, normal BS, Ext: No edema, no clubbing, no cyanosis Neuro: Intubated, sedated - Constitutional Vitals: Temp Pulse Resp BP Pulse Ox 97.7 F 80 18 105/59 100 05/03/19 03:48 05/03/19 06:41 05/03/19 06:41 05/03/19 06:41 05/03/19 06:41 General appearance: Present: other (intubated, ) Results - Labs CBC & Chem 7: 05/04/19 03:04 05/04/19 05:24 Labs: Laboratory Last Values WBC 9.2 K/mm3 (4.5-11.0) 05/03/19 05:29 RBC 4.72 M/mm3 (3.65-5.03) 05/03/19 05:29 Hgb 14.3 gm/dl (11.8-15.2) 05/03/19 05:29 Hct 42.5 % (35.5-45.6) 05/03/19 05:29 MCV 90 fl (84-94) 05/03/19 05:29 MCH 30 pg (28-32) 05/03/19 05:29 MCHC 34 % (32-34) 05/03/19 05:29 RDW 14.8 % (13.2-15.2) 05/03/19 05:29 Plt Count 87 K/mm3 (140-440) L 05/03/19 05:29 Lymph % (Auto) 5.3 % (13.4-35.0) L 05/02/19 02:44 [place] % (Auto) 5.1 % (0.0-7.3) 05/02/19 02:44 Eos % (Auto) 0.0 % (0.0-4.3) 05/02/19 02:44 Baso % (Auto) 0.3 % (0.0-1.8) 05/02/19 02:44 Lymph # 0.5 K/mm3 (1.2-5.4) L 05/02/19 02:44 [place] # 0.5 K/mm3 (0.0-0.8) 05/02/19 02:44 Eos # 0.0 K/mm3 (0.0-0.4) 05/02/19 02:44 Baso # 0.0 K/mm3 (0.0-0.1) 05/02/19 02:44 Seg Neutrophils % 89.3 % (40.0-70.0) H 05/02/19 02:44 Seg Neutrophils # 8.0 K/mm3 (1.8-7.7) H 05/02/19 02:44 PT 36.7 Sec. (12.2-14.9) H 05/03/19 05:29 INR 3.77 (0.87-1.13) H 05/03/19 05:29 APTT 28.6 Sec. (24.2-36.6) 05/01/19 23:09 ABG pH 7.472 pH Units (7.350-7.450) H 05/03/19 04:35 ABG pCO2 28.8 mm Hg 05/03/19 04:35 ABG pO2 206.8 mm Hg (80.0-90.0) H 05/03/19 04:35 ABG HCO3 20.6 mmol/L (20.0-26.0) 05/03/19 04:35 ABG O2 Saturation 99.3 % (95.0-99.0) H 05/03/19 04:35 ABG O2 Content 25.1 (0.0-44) 05/03/19 04:35 ABG Base Excess -1.4 mmol/L (-2.0-3.0) 05/03/19 04:35 ABG Hemoglobin 18.0 gm/dl (14.0-18.0) 05/03/19 04:35 ABG Carboxyhemoglobin 1.1 % (0.0-5.0) 05/03/19 04:35 ABG Methemoglobin 0.6 % (0.0-1.5) 05/03/19 04:35 97.6 % (95.0-99.0) 05/03/19 04:35 50 % 05/03/19 04:35 Sodium 136 mmol/L (137-145) L 05/03/19 05:29 Potassium 4.5 mmol/L (3.6-5.0) 05/03/19 05:29 Chloride 101.3 mmol/L (98-107) 05/03/19 05:29 Carbon Dioxide 23 mmol/L (22-30) 05/03/19 05:29 16 mmol/L 05/03/19 05:29 BUN 20 mg/dL (9-20) 05/03/19 05:29 1.5 mg/dL (0.8-1.5) 05/03/19 05:29 Estimated GFR 57 ml/min 05/03/19 05:29 13 % 05/03/19 05:29 Glucose 115 mg/dL (75-100) H 05/03/19 05:29 POC Glucose 113 (70-105) H 05/03/19 05:45 Lactic Acid 1.70 mmol/L (0.7-2.0) 05/01/19 23:09 Calcium 8.6 mg/dL (8.4-10.2) 05/03/19 05:29 1.20 mg/dL (0.1-1.2) 05/03/19 05:29 AST 29 units/L (5-40) 05/03/19 05:29 ALT 20 units/L (7-56) 05/03/19 05:29 54 units/L (35-129) 05/03/19 05:29 138 units/L (55-170) 05/02/19 10:20 CK-MB (CK-2) 2.1 ng/mL (0.0-4.0) 05/02/19 10:20 CK-MB (CK-2) Rel Index 1.5 (0-4) 05/02/19 10:20 0.031 ng/mL (0.00-0.029) H D 05/02/19 10:20 NT-Pro-B Natriuret Pep 1146 pg/mL (0-900) H 05/01/19 23:10 5.8 g/dL (6.3-8.2) L 05/03/19 05:29 3.0 g/dL (3.9-5) L 05/03/19 05:29 1.1 % 05/03/19 05:29 Triglycerides 47 mg/dL (2-149) 05/02/19 10:20 Cholesterol 126 mg/dL (50-199) 05/02/19 10:20 76 mg/dL (50-130) 05/02/19 10:20 62 mg/dL (40-59) H 05/02/19 10:20 2.03 % 05/02/19 10:20 Yellow (Yellow) 05/02/19 Unknown Slightly-cloudy (Clear) 05/02/19 Unknown 5.0 (5.0-7.0) 05/02/19 Unknown Ur Specific [place] 1.027 (1.003-1.030) 05/02/19 Unknown 100 mg/dl mg/dL (Negative) 05/02/19 Unknown 150 mg/dL (Negative) 05/02/19 Unknown Tr mg/dL (Negative) 05/02/19 Unknown Neg (Negative) 05/02/19 Unknown Neg (Negative) 05/02/19 Unknown Neg (Negative) 05/02/19 Unknown < 2.0 mg/dL (<2.0) 05/02/19 Unknown Ur Leukocyte Esterase Neg (Negative) 05/02/19 Unknown 4.0 /HPF (0.0-6.0) 05/02/19 Unknown 2.0 /HPF (0.0-6.0) 05/02/19 Unknown U Epithel Cells (Auto) 1.0 /HPF (0-13.0) 05/02/19 Unknown Hyaline Casts 8 /LPF 05/02/19 Unknown Granular Casts 6 /LPF 05/02/19 Unknown 1+ /HPF 05/02/19 Unknown Presumptive negative 05/02/19 Unknown Presumptive negative 05/02/19 Unknown Ur Barbiturates Screen Presumptive negative 05/02/19 Unknown Ur Phencyclidine Scrn Presumptive negative 05/02/19 Unknown Ur Amphetamines Screen Presumptive negative 05/02/19 Unknown U Benzodiazepines Scrn Presumptive positive 05/02/19 Unknown Presumptive negative 05/02/19 Unknown U Marijuana (THC) Screen Presumptive negative 05/02/19 Unknown Disclamer 05/02/19 Unknown Active Medications - Current Medications Current Medications: Generic Name Dose Route Start Last Admin Trade Name Freq PRN Reason Stop Dose Admin Acetaminophen 650 mg 05/02/19 02:25 05/02/19 21:08 Tylenol PO 650 mg Q4H PRN Administration Pain MILD(1-3)/Fever >100.5/FARLEY Amiodarone HCl 400 mg 05/02/19 18:00 05/02/19 20:35 Cordarone PO 400 mg TID NEVIN Administration Lipase/Protease/Amylase 1 each 05/02/19 14:[address] 10,500 Unit FEEDTUBE PRN PRN For Clogged Feeding Tube Dextrose 50 ml 05/02/19 03:04 D50w (25gm) Syringe IV PRN PRN Hypoglycemia Famotidine 20 mg 05/03/19 10:00 Pepcid PO BID NEVIN Hydrophilic Ointment 1 applic 05/02/19 01:04 Vaseline Lip Therapy TP Q2HR PRN Dry Lips Midazolam HCl 100 mg/ Sodium 100 mls @ 2 mls/hr 05/02/19 03:00 05/02/19 19:02 Chloride IV 0 mg/hr TITR NEVIN 0 mls/hr Titration Protocol 2 MG/HR Levetiracetam 1,000 mg/ 110 mls @ 400 mls/hr 05/02/19 12:00 05/02/19 22:00 Dextrose IV 400 mls/hr Q12HR NEVIN Administration Insulin Human Lispro 0 unit 05/02/19 06:00 05/03/19 00:00 Humalog SUB-Q Not Given Q6HR [facility] Protocol Lorazepam 1 mg 05/02/19 09:34 05/03/19 04:49 Ativan IV 1 mg Q4H PRN Administration Agitation Metoprolol Tartrate 25 mg 05/02/19 22:00 05/02/19 21:11 Lopressor PO 25 mg BID NEVIN Administration Midazolam HCl 2 mg 05/02/19 02:34 Versed IV Q10MIN PRN Sedation Multi-Ingred Cream/Lotion/Oil/Oint 1 applic 05/02/19 01:04 Artificial Tears Ophth Oint OU Q4HR PRN Dry Eye(s) Ondansetron HCl 4 mg 05/02/19 02:25 Zofran IV Q8H PRN Nausea And Vomiting Simple Syrup 15 ml 05/02/19 14:30 Simple Syrup FEEDTUBE PRN PRN Hypoglycemia Simple Syrup 30 ml 05/02/19 14:30 Simple Syrup FEEDTUBE PRN PRN Hypoglycemia Sodium Bicarbonate 325 mg 05/02/19 14:30 Sodium Bicarbonate FEEDTUBE PRN PRN For Clogged Feeding Tube Sodium Chloride 10 ml 05/02/19 10:00 05/02/19 21:16 Sodium Chloride Flush Syringe 10 Ml IV 10 ml BID NEVIN Administration Sodium Chloride 10 ml 05/02/19 02:25 Sodium Chloride Flush Syringe 10 Ml IV PRN PRN LINE FLUSH Nutrition/Malnutrition Assess - Dietary Evaluation Nutrition/Malnutrition Findings: Nutrition Notes Start: 05/02/19 14:09 Freq: Status: Active Protocol: Document 05/02/19 14:09 LM (Rec: 05/02/19 14:30 LM [id number]) Nutrition Notes Need for Assessment generated from: MD Order Initial or Follow up Assessment Current Diagnosis Diabetes,Stroke Other Pertinent Diagnosis seizures Current Diet NPO Labs/Tests BG 263 BUN 24 Pertinent Medications Humalog Height 6 ft Weight 115 kg [place] Body Weight (kg) 80.90 BMI 34.4 Weight Status Overweight Subjective/Other Information MD consult for TF, skin risk, and difficulty chewing. Pt on vent. Burn Absent Trauma Absent #1 Nutrition Diagnosis Inadequate oral intake Etiology Mechanical vent As Evidenced by Signs and Symptoms pt NPO Is patient on ventilator? Yes Is Patient Ambulatory and/or Out of Bed No REE[facility]) 8612.460 Additional Notes Energy needs 65-75% of energy needs: 1795-0106 kcal Protein: 162g (2g/kg IBW 80.9 kg) 1 ml/kcal Nutrition Intervention Change Diet Order: TF Nutrition Support: Vital High Protein at 65 ml/hr Flush 200 ml q4hr Kcal 1,600 Protein (gm) 136 Fluid (mL) 1,304 Goal #1 TF tolerance Goal #2 Meet at least 75% of energy and protein needs Anticipated Discharge Needs: Unable to determine at this time Follow-Up By: 05/03/19 Additional Comments F/U for TF start/tolerance
[2019-05-03] MEDS: PEPCID PO SCH ×2 (09:43→21:10)
[2019-05-03] MEDS: LOPRESSOR PO SCH ×2 (09:43→21:10)
[2019-05-03] MEDS: CORDARONE PO SCH ×2 (09:43→15:10)
[2019-05-03] MEDS: SODIUM CHLORIDE FLUSH SYRINGE 10 ML IV SCH ×2 (09:44→21:11)
[2019-05-03] MEDS: KEPPRA 1,000 MG in D5W 100 ML IV SCH ×2 (09:46→21:10)
--- NOTE | 2019-05-03 11:35 | Progress Note ---
Assessment and Plan Pt continues to have paroxysmal AFib with bouts of RVR. Cont current cardiac management, including PO amio 400mg TID. Will ultimately plan to reduce PO amio dosage to 200mg BID once rhythm is stabilized. Pt was taking Xarelto for systemic AC in regards to AFib at home. His INR was 2.04 on admission, now 3.77 this AM and LFTs WNL. Will not resume systemic AC at this time in setting of elevated INR. Further eval/management per primary. Await echo. Further recs to follow per hospital course. The patient has been seen in conjunction with Dr. Ocasio who agrees with the assessment and plan of care. - Patient Problems (1) Paroxysmal atrial fibrillation with RVR Current Visit: Yes Status: Chronic (2) Seizure disorder Current Visit: Yes Status: Acute (3) Altered mental status Current Visit: Yes Status: Acute (4) Acute respiratory failure Current Visit: Yes Status: Acute (5) Status post craniectomy Current Visit: Yes Status: Chronic (6) HTN (hypertension) Current Visit: Yes Status: Acute (7) Diabetes Current Visit: Yes Status: Acute (8) History of cardiomyopathy Current Visit: Yes Status: Chronic (9) Normal coronary arteries Current Visit: Yes Status: Chronic (10) History of intracranial hemorrhage Current Visit: Yes Status: Chronic (11) Coagulopathy Current Visit: Yes Status: Acute Subjective Date of service: 05/03/19 Principal diagnosis: AFib Interval history: pt remains intubated, unresponsive. in SR with freq PACs on telemetry. Objective Last Vital Signs Temp 98.7 F 05/03/19 08:00 Pulse 82 05/03/19 10:00 Resp 15 05/03/19 10:00 BP 102/53 05/03/19 10:00 Pulse Ox 99 05/03/19 10:00 - Physical Examination General: Other (intubated, nonresponsive) Cardiac: Positive: Reg Rate and Rhythm, S1/S2 Lungs: Positive: Decreased Breath Sounds, Ventilated Respirations Neuro: Positive: Other (intubated, unresponsive) Skin: Negative: Rash, Wound Extremities: Absent: edema - Labs and Meds Cardiac Enzymes 05/03/19 Range/Units 05:29 AST 29 (5-40) units/L Coagulation 05/03/19 Range/Units 05:29 PT 36.7 H (12.2-14.9) Sec. INR 3.77 H (0.87-1.13) CBC 05/03/19 Range/Units 05:29 WBC 9.2 (4.5-11.0) K/mm3 RBC 4.72 (3.65-5.03) M/mm3 Hgb 14.3 (11.8-15.2) gm/dl Hct 42.5 (35.5-45.6) % Plt Count 87 L (140-440) K/mm3 Comprehensive Metabolic Panel 05/03/19 Range/Units 05:29 Sodium 136 L (137-145) mmol/L Potassium 4.5 (3.6-5.0) mmol/L Chloride 101.3 (98-107) mmol/L Carbon Dioxide 23 (22-30) mmol/L BUN 20 (9-20) mg/dL Creatinine 1.5 (0.8-1.5) mg/dL Glucose 115 H (75-100) mg/dL Calcium 8.6 (8.4-10.2) mg/dL AST 29 (5-40) units/L ALT 20 (7-56) units/L Alkaline Phosphatase 54 (35-129) units/L Total Protein 5.8 L (6.3-8.2) g/dL Albumin 3.0 L (3.9-5) g/dL - Imaging and Cardiology EKG: report reviewed, image reviewed Echo: pending, report reviewed (10/2017 showed EF 55%, RA mildly dilated, trace MR, mod TR. ) Cardiac cath: report reviewed (2003 showed normal coronaries. ) - Telemetry EKG Rhythm: Sinus Rhythm
--- NOTE | 2019-05-03 12:29 | Progress Note ---
Assessment and Plan 63 y/o male with acute respiratory failure, secondary to medication administration to abort seizure or seizure like activity with subsequent SVT and required cardioversion in the ED per reports. 1. neuro-no further seizures. continue keppra at current dosing. EEG showed no seizure, just diffuse slowing likely. Neuro not consulted. 2. Resp-Will attempt extubation today. 3. CV-patient [facility]. follow their recs in regards to rate control therapy. 5. Continue q6hour fingersticks. Will start to feed. Has diabetes per and is on lantus although not listed. CCT 31 minutes. Subjective Date of service: 05/03/19 Principal diagnosis: AFib Interval history: No acute events. Awake and alert. Following commands. On PSV now and tolerating. Sister at bedside. Objective Vital Signs - 12hr 05/03/19 05/03/19 05/03/19 00:31 00:41 00:51 Temperature Pulse Rate 93 H 76 85 Pulse Rate [ Left Posterior Tibial] Respiratory 19 24 24 Rate Blood Pressure 106/62 106/62 106/62 O2 Sat by Pulse 93 100 100 Oximetry 05/03/19 05/03/19 05/03/19 01:00 01:11 01:21 Temperature Pulse Rate 80 82 87 Pulse Rate [ Left Posterior Tibial] Respiratory 24 24 24 Rate Blood Pressure 113/58 113/58 113/58 O2 Sat by Pulse 100 100 100 Oximetry 05/03/19 05/03/19 05/03/19 01:31 01:41 01:51 Temperature Pulse Rate 77 80 78 Pulse Rate [ Left Posterior Tibial] Respiratory 24 24 16 Rate Blood Pressure 101/53 101/53 101/53 O2 Sat by Pulse 100 100 100 Oximetry 05/03/19 05/03/19 05/03/19 02:00 02:10 02:21 Temperature Pulse Rate 97 H 92 H 86 Pulse Rate [ Left Posterior Tibial] Respiratory 27 H 21 24 Rate Blood Pressure 105/63 99/60 105/63 O2 Sat by Pulse 98 100 100 Oximetry 05/03/19 05/03/19 05/03/19 02:31 02:41 02:51 Temperature Pulse Rate 73 88 78 Pulse Rate [ Left Posterior Tibial] Respiratory 12 24 24 Rate Blood Pressure 112/63 105/63 105/63 O2 Sat by Pulse 100 100 100 Oximetry 05/03/19 05/03/1919 03:00 03:11 03:21 Temperature Pulse Rate 85 88 82 Pulse Rate [ Left Posterior Tibial] Respiratory 25 H 20 24 Rate Blood Pressure 112/47 112/47 112/47 O2 Sat by Pulse 100 100 100 Oximetry 05/03/19 05/03/19 05/03/19 03:30 03:41 03:48 Temperature 97.7 F Pulse Rate 76 79 Pulse Rate [ Left Posterior Tibial] Respiratory 24 24 Rate Blood Pressure 102/63 102/63 O2 Sat by Pulse 100 100 Oximetry 05/03/19 05/03/19 05/03/19 03:51 04:00 04:11 Temperature Pulse Rate 85 77 109 H Pulse Rate [ 80 Left Posterior Tibial] Respiratory 24 24 24 Rate Blood Pressure 112/47 102/64 102/64 O2 Sat by Pulse 100 100 100 Oximetry 05/03/19 05/03/19 05/03/19 04:21 04:30 04:41 Temperature Pulse Rate 83 70 82 Pulse Rate [ Left Posterior Tibial] Respiratory 18 24 21 Rate Blood Pressure 102/63 99/59 99/59 O2 Sat by Pulse 76 L 100 100 Oximetry 05/03/19 05/03/19 05/03/19 04:51 05:01 05:05 Temperature Pulse Rate 75 80 82 Pulse Rate [ Left Posterior Tibial] Respiratory 24 24 Rate Blood Pressure 102/64 99/65 99/65 O2 Sat by Pulse 100 100 100 Oximetry 05/03/19 05/03/19 05/03/19 05:11 05:21 05:30 Temperature Pulse Rate 75 84 86 Pulse Rate [ Left Posterior Tibial] Respiratory 24 17 18 Rate Blood Pressure 99/65 99/65 104/59 O2 Sat by Pulse 100 100 100 Oximetry 05/03/19 05/03/19 05/03/19 05:41 05:51 06:01 Temperature Pulse Rate 81 77 84 Pulse Rate [ Left Posterior Tibial] Respiratory 17 18 22 Rate Blood Pressure 104/59 104/59 104/59 O2 Sat by Pulse 100 98 100 Oximetry 05/03/19 05/03/19 05/03/19 06:11 06:21 06:31 Temperature Pulse Rate 74 81 81 Pulse Rate [ Left Posterior Tibial] Respiratory 18 18 19 Rate Blood Pressure 118/76 118/76 105/59 O2 Sat by Pulse 100 100 99 Oximetry 05/03/19 05/03/19 05/03/19 06:41 06:51 07:01 Temperature Pulse Rate 80 78 73 Pulse Rate [ Left Posterior Tibial] Respiratory 18 18 18 Rate Blood Pressure 105/59 105/59 97/55 O2 Sat by Pulse 100 100 100 Oximetry 05/03/19 05/03/19 05/03/19 07:11 07:21 07:30 Temperature Pulse Rate 79 69 83 Pulse Rate [ Left Posterior Tibial] Respiratory 19 15 17 Rate Blood Pressure 97/55 97/55 103/68 O2 Sat by Pulse 100 100 99 Oximetry 05/03/19 05/03/19 05/03/19 07:41 07:51 08:00 Temperature 98.7 F Pulse Rate 94 H 73 Pulse Rate [ Left Posterior Tibial] Respiratory 17 16 Rate Blood Pressure 103/68 103/68 O2 Sat by Pulse 100 100 Oximetry 05/03/19 05/03/19 05/03/19 08:01 08:11 08:21 Temperature Pulse Rate 83 76 80 Pulse Rate [ Left Posterior Tibial] Respiratory 16 16 17 Rate Blood Pressure 103/60 103/60 103/60 O2 Sat by Pulse 100 100 100 Oximetry 05/03/19 05/03/19 05/03/19 08:31 08:41 08:51 Temperature Pulse Rate 87 82 81 Pulse Rate [ Left Posterior Tibial] Respiratory 14 20 15 Rate Blood Pressure 109/63 109/63 109/63 O2 Sat by Pulse 100 100 100 Oximetry 05/03/19 05/03/19 05/03/19 09:00 09:01 09:11 Temperature Pulse Rate 79 72 76 Pulse Rate [ Left Posterior Tibial] Respiratory 16 22 Rate Blood Pressure 109/63 109/63 O2 Sat by Pulse 100 100 100 Oximetry 05/03/19 05/03/19 05/03/19 09:21 09:30 09:40 Temperature Pulse Rate 92 H 80 66 Pulse Rate [ Left Posterior Tibial] Respiratory 16 17 19 Rate Blood Pressure 109/63 89/52 76/42 O2 Sat by Pulse 100 88 99 Oximetry 05/03/19 05/03/19 05/03/19 09:43 09:51 10:00 Temperature Pulse Rate 90 68 82 Pulse Rate [ Left Posterior Tibial] Respiratory 13 15 Rate Blood Pressure 98/53 98/53 102/53 O2 Sat by Pulse 99 99 Oximetry 05/03/19 05/03/19 10:50 12:12 Temperature Pulse Rate 92 H 82 Pulse Rate [ Left Posterior Tibial] Respiratory 16 16 Rate Blood Pressure 99/53 O2 Sat by Pulse 99 100 Oximetry Constitutional: appears uncomfortable, other (obtunded) ENT: other (orally intubated and sedated) Neck: supple Effort: normal Ascultation: Bilateral: clear Percussion: Bilateral: not dull Cardiovascular: regular rate and rhythm Gastrointestinal: soft, non-tender Extremities: no edema, pink and warm, pulses normal Neurologic: unable to assess CBC and BMP: 05/03/19 05:29 05/03/19 05:29 ABG, PT/INR, D-dimer: ABG ABG pH 7.472 pH Units (7.350-7.450) H 05/03/19 04:35 ABG pCO2 28.8 mm Hg 05/03/19 04:35 ABG pO2 206.8 mm Hg (80.0-90.0) H 05/03/19 04:35 ABG O2 Saturation 99.3 % (95.0-99.0) H 05/03/19 04:35 PT/INR, D-dimer PT 36.7 Sec. (12.2-14.9) H 05/03/19 05:29 INR 3.77 (0.87-1.13) H 05/03/19 05:29 Abnormal lab findings: Abnormal Labs 05/01/19 05/01/19 05/01/19 01:06 23:09 23:10 RBC Hgb Hct RDW Plt Count Lymph % (Auto) Lymph # Seg Neutrophils % Seg Neutrophils # PT 22.6 H INR 2.04 H ABG pH 7.275 L ABG pO2 267.9 H ABG HCO3 19.4 L ABG O2 Saturation 99.4 H ABG Base Excess -7.2 L Sodium BUN Glucose POC Glucose Troponin T NT-Pro-B Natriuret Pep 1146 H Total Protein Albumin HDL Cholesterol 05/02/19 05/02/19 05/02/19 01:32 02:44 02:44 RBC 5.36 H Hgb 16.2 H 15.3 H Hct 49.9 H 45.9 H RDW 15.4 H Plt Count 125 L 122 L Lymph % (Auto) 5.7 L 5.3 L Lymph # 0.5 L 0.5 L Seg Neutrophils % 90.0 H 89.3 H Seg Neutrophils # 8.4 H 8.0 H PT INR ABG pH ABG pO2 ABG HCO3 ABG O2 Saturation ABG Base Excess Sodium BUN 24 H Glucose 263 H POC Glucose Troponin T NT-Pro-B Natriuret Pep Total Protein Albumin HDL Cholesterol 05/02/19 05/02/19 05/02/19 06:11 10:20 12:47 RBC Hgb Hct RDW Plt Count Lymph % (Auto) Lymph # Seg Neutrophils % Seg Neutrophils # PT INR ABG pH ABG pO2 ABG HCO3 ABG O2 Saturation ABG Base Excess Sodium BUN Glucose POC Glucose 215 H 158 H Troponin T 0.031 H D NT-Pro-B Natriuret Pep Total Protein Albumin HDL Cholesterol 62 H 05/02/19 05/02/19 05/02/19 18:31 23:34 Unknown RBC Hgb Hct RDW Plt Count Lymph % (Auto) Lymph # Seg Neutrophils % Seg Neutrophils # PT INR ABG pH ABG pO2 212.5 H ABG HCO3 19.2 L ABG O2 Saturation 99.3 H ABG Base Excess -3.9 L Sodium BUN Glucose POC Glucose 174 H 112 H Troponin T NT-Pro-B Natriuret Pep Total Protein Albumin HDL Cholesterol 05/03/19 05/03/19 05/03/19 04:35 05:29 05:29 RBC Hgb Hct RDW Plt Count Lymph % (Auto) Lymph # Seg Neutrophils % Seg Neutrophils # PT 36.7 H INR 3.77 H ABG pH 7.472 H ABG pO2 206.8 H ABG HCO3 ABG O2 Saturation 99.3 H ABG Base Excess Sodium 136 L BUN Glucose 115 H POC Glucose Troponin T NT-Pro-B Natriuret Pep Total Protein 5.8 L Albumin 3.0 L HDL Cholesterol 05/03/19 05/03/19 05/03/19 05:29 05:45 12:18 RBC Hgb Hct RDW Plt Count 87 L Lymph % (Auto) Lymph # Seg Neutrophils % Seg Neutrophils # PT INR ABG pH ABG pO2 ABG HCO3 ABG O2 Saturation ABG Base Excess Sodium BUN Glucose POC Glucose 113 H 116 H Troponin T NT-Pro-B Natriuret Pep Total Protein Albumin HDL Cholesterol
[2019-05-03 12:49] LABS: ABG Base Excess -1.7 mmol/L (-2.0-3.0); ABG HCO3 21.7 mmol/L (20.0-26.0); ABG Methemoglobin 0.6 % (0.0-1.5); ABG Oxygen Saturation 97.6 % (95.0-99.0); ABG PCO2 32.9 mm Hg; ABG PH 7.437 pH Units (7.350-7.450); ABG PO2 97.6 mm Hg (80.0-90.0)
[2019-05-03] MEDS: HumaLOG SUB-Q SCH ×3 (13:04→19:29)
[2019-05-04] MEDS: HumaLOG SUB-Q SCH ×4 (02:32→17:33)
[2019-05-04 05:40] LABS: Hematocrit 41.5 % (35.5-45.6); Hemoglobin 13.8 gm/dl (11.8-15.2); Mean Corpuscular HGB Conc 33 % (32-34); Mean Corpuscular Volume 91 fl (84-94); Red Blood Count 4.54 M/mm3 (3.65-5.03); Red Cell Distribution Width 15.1 % (13.2-15.2)
[2019-05-04 05:50] LABS: Platelet Count 85 K/mm3 (140-440)
[2019-05-04 05:52] LABS: BUN/Creatinine Ratio 15; Blood Urea Nitrogen 19 mg/dL (9-20); Calcium 8.7 mg/dL (8.4-10.2); Hemolysis Index 51
[2019-05-04] MEDS: ATIVAN IV PRN (06:16)
[2019-05-04] MEDS: LOPRESSOR PO SCH ×2 (09:59→21:56)
[2019-05-04] MEDS: PEPCID PO SCH (10:00)
[2019-05-04] MEDS: KEPPRA 1,000 MG in D5W 100 ML IV SCH (10:00)
[2019-05-04] MEDS: SODIUM CHLORIDE FLUSH SYRINGE 10 ML IV SCH ×2 (10:01→22:55)
[2019-05-04] MEDS: TYLENOL PO PRN (10:15)
--- NOTE | 2019-05-04 12:02 | Progress Note ---
Assessment and Plan 63 y/o male with acute respiratory failure, secondary to medication administration to abort seizure or seizure like activity with subsequent SVT and required cardioversion in the ED per reports. 1. Resp-asked nursing to change pulse ox as it is not correlating with the patient. Stable on room air. 2. Neuro-no further seizures. Suggest continuing BID keppra. Up to primary if need neuro consult in house 3. CV-patient actually a patient of [facility]. follow their recs in regards to rate control therapy. I stopped amio as the nursing staff associated this with hypotension. 4. Continue q6hour fingersticks. Will start to feed. Has diabetes per and is on lantus although not listed. 5. Stable for transfer out of unit. Subjective Date of service: 05/04/19 Principal diagnosis: AFib Interval history: No acute events. Successful extubation on yesterday. had some hypotension per nursing with Amio so I discontinued it around 1900 yesterday. Objective Vital Signs - 12hr 05/04/19 05/04/19 05/04/19 00:00 00:01 00:11 Temperature 97.8 F Pulse Rate 70 69 Pulse Rate [ From Monitor] Pulse Rate [ 75 Left Posterior Tibial] Respiratory 29 H 26 H Rate Blood Pressure 102/50 102/50 O2 Sat by Pulse Oximetry 05/04/19 05/04/19 05/04/19 00:21 00:30 00:41 Temperature Pulse Rate 69 73 66 Pulse Rate [ From Monitor] Pulse Rate [ Left Posterior Tibial] Respiratory 22 24 25 H Rate Blood Pressure 102/50 94/55 94/55 O2 Sat by Pulse Oximetry 05/04/19 05/04/19 05/04/19 00:51 01:00 01:11 Temperature Pulse Rate 94 H 68 67 Pulse Rate [ From Monitor] Pulse Rate [ Left Posterior Tibial] Respiratory 12 21 26 H Rate Blood Pressure 94/55 104/50 104/50 O2 Sat by Pulse Oximetry 05/04/19 05/04/19 05/04/19 01:21 01:30 01:41 Temperature Pulse Rate 67 65 62 Pulse Rate [ From Monitor] Pulse Rate [ Left Posterior Tibial] Respiratory 22 21 21 Rate Blood Pressure 104/50 94/53 94/53 O2 Sat by Pulse Oximetry 05/04/19 05/04/19 05/04/19 01:51 02:00 02:11 Temperature Pulse Rate 73 67 64 Pulse Rate [ From Monitor] Pulse Rate [ Left Posterior Tibial] Respiratory 22 25 H 18 Rate Blood Pressure 94/53 101/59 101/59 O2 Sat by Pulse Oximetry 05/04/19 05/04/19 05/04/19 02:21 02:30 02:41 Temperature Pulse Rate 66 62 62 Pulse Rate [ From Monitor] Pulse Rate [ Left Posterior Tibial] Respiratory 22 20 19 Rate Blood Pressure 101/59 97/53 97/53 O2 Sat by Pulse Oximetry 05/04/19 05/04/19 05/04/19 02:51 03:00 03:11 Temperature Pulse Rate 67 76 93 H Pulse Rate [ From Monitor] Pulse Rate [ Left Posterior Tibial] Respiratory 22 21 17 Rate Blood Pressure 97/53 95/65 95/65 O2 Sat by Pulse Oximetry 05/04/19 05/04/19 05/04/19 03:21 03:30 03:41 Temperature Pulse Rate 65 64 80 Pulse Rate [ From Monitor] Pulse Rate [ Left Posterior Tibial] Respiratory 21 22 15 Rate Blood Pressure 95/65 94/59 94/59 O2 Sat by Pulse Oximetry 05/04/19 05/04/19 05/04/19 03:51 04:00 04:11 Temperature 98.3 F Pulse Rate 63 70 66 Pulse Rate [ From Monitor] Pulse Rate [ 70 Left Posterior Tibial] Respiratory 12 21 23 Rate Blood Pressure 94/59 97/58 97/58 O2 Sat by Pulse Oximetry 05/04/19 05/04/19 05/04/19 04:21 04:30 04:41 Temperature Pulse Rate 69 69 68 Pulse Rate [ From Monitor] Pulse Rate [ Left Posterior Tibial] Respiratory 23 17 21 Rate Blood Pressure 97/58 91/61 91/61 O2 Sat by Pulse Oximetry 05/04/19 05/04/19 05/04/19 04:51 05:00 05:11 Temperature Pulse Rate 63 82 69 Pulse Rate [ From Monitor] Pulse Rate [ Left Posterior Tibial] Respiratory 18 18 22 Rate Blood Pressure 91/61 106/62 106/62 O2 Sat by Pulse Oximetry 05/04/19 05/04/19 05/04/19 05:21 05:30 05:41 Temperature Pulse Rate 81 87 79 Pulse Rate [ From Monitor] Pulse Rate [ Left Posterior Tibial] Respiratory 16 16 12 Rate Blood Pressure 106/62 103/71 103/71 O2 Sat by Pulse Oximetry 05/04/19 05/04/19 05/04/19 05:51 06:00 06:11 Temperature Pulse Rate 73 76 72 Pulse Rate [ From Monitor] Pulse Rate [ Left Posterior Tibial] Respiratory 13 16 22 Rate Blood Pressure 103/71 105/60 105/60 O2 Sat by Pulse Oximetry 05/04/19 05/04/19 05/04/19 06:21 06:30 06:41 Temperature Pulse Rate 78 73 63 Pulse Rate [ From Monitor] Pulse Rate [ Left Posterior Tibial] Respiratory 11 L 19 22 Rate Blood Pressure 105/60 102/60 102/60 O2 Sat by Pulse Oximetry 05/04/19 05/04/19 05/04/19 06:51 07:00 07:11 Temperature Pulse Rate 72 80 74 Pulse Rate [ From Monitor] Pulse Rate [ Left Posterior Tibial] Respiratory 27 H 23 17 Rate Blood Pressure 102/60 106/65 106/65 O2 Sat by Pulse 98 99 Oximetry 05/04/19 05/04/19 05/04/19 07:21 07:30 07:41 Temperature Pulse Rate 86 65 72 Pulse Rate [ From Monitor] Pulse Rate [ Left Posterior Tibial] Respiratory 21 13 21 Rate Blood Pressure 106/65 108/61 108/61 O2 Sat by Pulse Oximetry 05/04/19 05/04/19 05/04/19 07:51 08:00 08:08 Temperature 98.3 F Pulse Rate 80 65 80 Pulse Rate [ 65 From Monitor] Pulse Rate [ Left Posterior Tibial] Respiratory 9 L 21 Rate Blood Pressure 108/61 111/62 O2 Sat by Pulse 98 Oximetry 05/04/19 05/04/19 05/04/19 08:11 08:21 08:30 Temperature Pulse Rate 77 83 Pulse Rate [ From Monitor] Pulse Rate [ Left Posterior Tibial] Respiratory 20 21 23 Rate Blood Pressure 111/62 111/62 107/65 O2 Sat by Pulse Oximetry 05/04/19 05/04/19 05/04/19 08:41 08:51 08:58 Temperature Pulse Rate 87 Pulse Rate [ From Monitor] Pulse Rate [ Left Posterior Tibial] Respiratory 21 13 Rate Blood Pressure 107/65 107/65 O2 Sat by Pulse 100 Oximetry 05/04/19 05/04/19 05/04/19 09:00 09:11 09:21 Temperature Pulse Rate 78 87 76 Pulse Rate [ From Monitor] Pulse Rate [ Left Posterior Tibial] Respiratory 19 18 13 Rate Blood Pressure 110/59 110/59 110/59 O2 Sat by Pulse Oximetry 05/04/19 05/04/19 05/04/19 09:31 09:41 09:51 Temperature Pulse Rate 77 69 Pulse Rate [ From Monitor] Pulse Rate [ Left Posterior Tibial] Respiratory 15 15 17 Rate Blood Pressure 104/52 104/52 104/52 O2 Sat by Pulse 85 98 83 L Oximetry 05/04/19 05/04/19 05/04/19 09:59 10:00 10:11 Temperature Pulse Rate 65 69 72 Pulse Rate [ From Monitor] Pulse Rate [ Left Posterior Tibial] Respiratory 20 13 Rate Blood Pressure 104/52 112/55 112/55 O2 Sat by Pulse 99 100 Oximetry 05/04/19 05/04/19 05/04/19 10:21 10:30 10:41 Temperature Pulse Rate 69 73 74 Pulse Rate [ From Monitor] Pulse Rate [ Left Posterior Tibial] Respiratory 10 L 21 20 Rate Blood Pressure 112/55 119/65 119/65 O2 Sat by Pulse 100 100 100 Oximetry 05/04/19 05/04/19 10:51 11:00 Temperature Pulse Rate 64 61 Pulse Rate [ From Monitor] Pulse Rate [ Left Posterior Tibial] Respiratory 18 11 L Rate Blood Pressure 119/65 109/66 O2 Sat by Pulse 99 100 Oximetry Constitutional: appears uncomfortable, other (obtunded) ENT: other (orally intubated and sedated) Neck: supple Effort: normal Ascultation: Bilateral: clear Percussion: Bilateral: not dull Cardiovascular: regular rate and rhythm Gastrointestinal: soft, non-tender Extremities: no edema, pink and warm, pulses normal Neurologic: unable to assess CBC and BMP: 05/04/19 03:04 05/04/19 05:24 ABG, PT/INR, D-dimer: ABG POC ABG pH 7.419 (7.35-7.45) 05/03/19 12:24 ABG pH 7.437 pH Units (7.350-7.450) 05/03/19 Unknown POC ABG pCO2 32.3 (35-45) L 05/03/19 12:24 ABG pCO2 32.9 mm Hg 05/03/19 Unknown POC ABG pO2 100 (80-105) 05/03/19 12:24 ABG pO2 97.6 mm Hg (80.0-90.0) H 05/03/19 Unknown POC ABG HCO3 20.9 (22-26 mml/L) 05/03/19 12:24 POC ABG Total CO2 22 (23-27mmol/L) 05/03/19 12:24 POC ABG O2 Sat 98 05/03/19 12:24 ABG O2 Saturation 97.6 % (95.0-99.0) 05/03/19 Unknown PT/INR, D-dimer PT 36.7 Sec. (12.2-14.9) H 05/03/19 05:29 INR 3.77 (0.87-1.13) H 05/03/19 05:29 Abnormal lab findings: Abnormal Labs 05/01/19 05/01/19 05/01/19 01:06 23:09 23:10 RBC Hgb Hct RDW Plt Count Lymph % (Auto) Lymph # Seg Neutrophils % Seg Neutrophils # PT 22.6 H INR 2.04 H ABG pH 7.275 L POC ABG pCO2 ABG pO2 267.9 H ABG HCO3 19.4 L ABG O2 Saturation 99.4 H ABG Base Excess -7.2 L ABG Hemoglobin Sodium BUN Glucose POC Glucose Troponin T NT-Pro-B Natriuret Pep 1146 H Total Protein Albumin HDL Cholesterol 05/02/19 05/02/19 05/02/19 01:32 02:44 02:44 RBC 5.36 H Hgb 16.2 H 15.3 H Hct 49.9 H 45.9 H RDW 15.4 H Plt Count 125 L 122 L Lymph % (Auto) 5.7 L 5.3 L Lymph # 0.5 L 0.5 L Seg Neutrophils % 90.0 H 89.3 H Seg Neutrophils # 8.4 H 8.0 H PT INR ABG pH POC ABG pCO2 ABG pO2 ABG HCO3 ABG O2 Saturation ABG Base Excess ABG Hemoglobin Sodium BUN 24 H Glucose 263 H POC Glucose Troponin T NT-Pro-B Natriuret Pep Total Protein Albumin HDL Cholesterol 05/02/19 05/02/19 05/02/19 06:11 10:20 12:47 RBC Hgb Hct RDW Plt Count Lymph % (Auto) Lymph # Seg Neutrophils % Seg Neutrophils # PT INR ABG pH POC ABG pCO2 ABG pO2 ABG HCO3 ABG O2 Saturation ABG Base Excess ABG Hemoglobin Sodium BUN Glucose POC Glucose 215 H 158 H Troponin T 0.031 H D NT-Pro-B Natriuret Pep Total Protein Albumin HDL Cholesterol 62 H 05/02/19 05/02/19 05/02/19 18:31 23:34 Unknown RBC Hgb Hct RDW Plt Count Lymph % (Auto) Lymph # Seg Neutrophils % Seg Neutrophils # PT INR ABG pH POC ABG pCO2 ABG pO2 212.5 H ABG HCO3 19.2 L ABG O2 Saturation 99.3 H ABG Base Excess -3.9 L ABG Hemoglobin Sodium BUN Glucose POC Glucose 174 H 112 H Troponin T NT-Pro-B Natriuret Pep Total Protein Albumin HDL Cholesterol 05/03/19 05/03/19 05/03/19 04:35 05:29 05:29 RBC Hgb Hct RDW Plt Count Lymph % (Auto) Lymph # Seg Neutrophils % Seg Neutrophils # PT 36.7 H INR 3.77 H ABG pH 7.472 H POC ABG pCO2 ABG pO2 206.8 H ABG HCO3 ABG O2 Saturation 99.3 H ABG Base Excess ABG Hemoglobin Sodium 136 L BUN Glucose 115 H POC Glucose Troponin T NT-Pro-B Natriuret Pep Total Protein 5.8 L Albumin 3.0 L HDL Cholesterol 05/03/19 05/03/19 05/03/19 05:29 05:45 12:18 RBC Hgb Hct RDW Plt Count 87 L Lymph % (Auto) Lymph # Seg Neutrophils % Seg Neutrophils # PT INR ABG pH POC ABG pCO2 ABG pO2 ABG HCO3 ABG O2 Saturation ABG Base Excess ABG Hemoglobin Sodium BUN Glucose POC Glucose 113 H 116 H Troponin T NT-Pro-B Natriuret Pep Total Protein Albumin HDL Cholesterol 05/03/19 05/03/19 05/04/19 12:24 Unknown 03:04 RBC Hgb Hct RDW Plt Count 85 L Lymph % (Auto) Lymph # Seg Neutrophils % Seg Neutrophils # PT INR ABG pH POC ABG pCO2 32.3 L ABG pO2 97.6 H ABG HCO3 ABG O2 Saturation ABG Base Excess ABG Hemoglobin 13.5 L Sodium BUN Glucose POC Glucose Troponin T NT-Pro-B Natriuret Pep Total Protein Albumin HDL Cholesterol
[2019-05-04] MEDS ORDERED: XARELTO PO SCH (14:00)
--- NOTE | 2019-05-04 14:15 | Progress Note ---
Assessment and Plan Assessment and plan: 63 -year-old man with a history of CVA with right-sided weakness, seizure, diabetes, A. nicholas was brought to the emergency room for evaluation. at bedside state that the granddaughter notified her that the patient is staring at the ceiling while she was talking to him. She went to check on him and found that he was twitching the left side and unresponsive. EMS was called, they gave him Versed for seizure. He was also found to be in SVT rate of 200, he was given adenosine 6 and 12, heart rate went from 180 to 200. In the emergency room he was shocked once with 50 J and intubated, his heart rate went to 150. He was shocked again at 200J, heart rate went to low 100s, started on amiodarone drip. Acute respiratory failure Now extubated 03/03, was intubated Pulm following SVT On amiodarone. cardiology following CVA with residual right-sided weakness seizure disorder Seizures Consult Neuro Diabetes mellitus type 2 Fingerstick Qac and hs A. fib Resume Xarelto Thrombocytopenia Monitor Full code status Stable to transfer to tele History Interval history: Extubated yesterday 05/03 Hospitalist Physical - Physical exam Narrative exam: Gen: Not in acute distress, lying in bed, obese, HEENT: Normocephalic, atraumatic Neck: supple, no JVD Heart: S1 and S2 reg, no murmurs, rubs or gallop Lungs: Clear to auscultation, no rhonchi, no wheeze Abd: soft, non tender, non distended, normal BS, Ext: No edema, no clubbing, no cyanosis Neuro: Awake,alert - Constitutional Vitals: Temp Pulse Resp BP Pulse Ox 98.3 F 64 21 117/61 100 05/04/19 12:00 05/04/19 13:00 05/04/19 13:00 05/04/19 13:00 05/04/19 13:00 General appearance: Present: other (intubated, ) Results - Labs CBC & Chem 7: 05/04/19 03:04 05/04/19 05:24 Labs: Laboratory Last Values WBC 5.8 K/mm3 (4.5-11.0) 05/04/19 03:04 RBC 4.54 M/mm3 (3.65-5.03) 05/04/19 03:04 Hgb 13.8 gm/dl (11.8-15.2) 05/04/19 03:04 Hct 41.5 % (35.5-45.6) 05/04/19 03:04 MCV 91 fl (84-94) 05/04/19 03:04 MCH 30 pg (28-32) 05/04/19 03:04 MCHC 33 % (32-34) 05/04/19 03:04 RDW 15.1 % (13.2-15.2) 05/04/19 03:04 Plt Count 85 K/mm3 (140-440) L 05/04/19 03:04 Lymph % (Auto) 5.3 % (13.4-35.0) L 05/02/19 02:44 [place] % (Auto) 5.1 % (0.0-7.3) 05/02/19 02:44 Eos % (Auto) 0.0 % (0.0-4.3) 05/02/19 02:44 Baso % (Auto) 0.3 % (0.0-1.8) 05/02/19 02:44 Lymph # 0.5 K/mm3 (1.2-5.4) L 05/02/19 02:44 [place] # 0.5 K/mm3 (0.0-0.8) 05/02/19 02:44 Eos # 0.0 K/mm3 (0.0-0.4) 05/02/19 02:44 Baso # 0.0 K/mm3 (0.0-0.1) 05/02/19 02:44 Seg Neutrophils % 89.3 % (40.0-70.0) H 05/02/19 02:44 Seg Neutrophils # 8.0 K/mm3 (1.8-7.7) H 05/02/19 02:44 PT 36.7 Sec. (12.2-14.9) H 05/03/19 05:29 INR 3.77 (0.87-1.13) H 05/03/19 05:29 APTT 28.6 Sec. (24.2-36.6) 05/01/19 23:09 POC ABG pH 7.419 (7.35-7.45) 05/03/19 12:24 ABG pH 7.437 pH Units (7.350-7.450) 05/03/19 Unknown POC ABG pCO2 32.3 (35-45) L 05/03/19 12:24 ABG pCO2 32.9 mm Hg 05/03/19 Unknown POC ABG pO2 100 (80-105) 05/03/19 12:24 ABG pO2 97.6 mm Hg (80.0-90.0) H 05/03/19 Unknown POC ABG HCO3 20.9 (22-26 mml/L) 05/03/19 12:24 ABG HCO3 21.7 mmol/L (20.0-26.0) 05/03/19 Unknown POC ABG Total CO2 22 (23-27mmol/L) 05/03/19 12:24 POC ABG O2 Sat 98 05/03/19 12:24 ABG O2 Saturation 97.6 % (95.0-99.0) 05/03/19 Unknown ABG O2 Content 18.2 (0.0-44) 05/03/19 Unknown POC ABG Base Excess -4 ((-2) - (+3)mmol/L) 05/03/19 12:24 ABG Base Excess -1.7 mmol/L (-2.0-3.0) 05/03/19 Unknown ABG Hemoglobin 13.5 gm/dl (14.0-18.0) L 05/03/19 Unknown ABG Carboxyhemoglobin 1.4 % (0.0-5.0) 05/03/19 Unknown ABG Methemoglobin 0.6 % (0.0-1.5) 05/03/19 Unknown 95.7 % (95.0-99.0) 05/03/19 Unknown 25 % 05/03/19 Unknown Sodium 139 mmol/L (137-145) 05/04/19 05:24 Potassium 4.4 mmol/L (3.6-5.0) 05/04/19 05:24 Chloride 104.6 mmol/L (98-107) 05/04/19 05:24 Carbon Dioxide 23 mmol/L (22-30) 05/04/19 05:24 16 mmol/L 05/04/19 05:24 BUN 19 mg/dL (9-20) 05/04/19 05:24 1.3 mg/dL (0.8-1.5) 05/04/19 05:24 Estimated GFR > 60 ml/min 05/04/19 05:24 15 % 05/04/19 05:24 Glucose 84 mg/dL (75-100) 05/04/19 05:24 POC Glucose 86 (70-105) 05/04/19 13:06 Lactic Acid 1.70 mmol/L (0.7-2.0) 05/01/19 23:09 Calcium 8.7 mg/dL (8.4-10.2) 05/04/19 05:24 1.20 mg/dL (0.1-1.2) 05/03/19 05:29 AST 29 units/L (5-40) 05/03/19 05:29 ALT 20 units/L (7-56) 05/03/19 05:29 54 units/L (35-129) 05/03/19 05:29 138 units/L (55-170) 05/02/19 10:20 CK-MB (CK-2) 2.1 ng/mL (0.0-4.0) 05/02/19 10:20 CK-MB (CK-2) Rel Index 1.5 (0-4) 05/02/19 10:20 0.020 ng/mL (0.00-0.029) 05/03/19 10:48 NT-Pro-B Natriuret Pep 1146 pg/mL (0-900) H 05/01/19 23:10 5.8 g/dL (6.3-8.2) L 05/03/19 05:29 3.0 g/dL (3.9-5) L 05/03/19 05:29 1.1 % 05/03/19 05:29 Triglycerides 47 mg/dL (2-149) 05/02/19 10:20 Cholesterol 126 mg/dL (50-199) 05/02/19 10:20 76 mg/dL (50-130) 05/02/19 10:20 62 mg/dL (40-59) H 05/02/19 10:20 2.03 % 05/02/19 10:20 Yellow (Yellow) 05/02/19 Unknown Slightly-cloudy (Clear) 05/02/19 Unknown 5.0 (5.0-7.0) 05/02/19 Unknown Ur Specific [place] 1.027 (1.003-1.030) 05/02/19 Unknown 100 mg/dl mg/dL (Negative) 05/02/19 Unknown 150 mg/dL (Negative) 05/02/19 Unknown Tr mg/dL (Negative) 05/02/19 Unknown Neg (Negative) 05/02/19 Unknown Neg (Negative) 05/02/19 Unknown Neg (Negative) 05/02/19 Unknown < 2.0 mg/dL (<2.0) 05/02/19 Unknown Ur Leukocyte Esterase Neg (Negative) 05/02/19 Unknown 4.0 /HPF (0.0-6.0) 05/02/19 Unknown 2.0 /HPF (0.0-6.0) 05/02/19 Unknown U Epithel Cells (Auto) 1.0 /HPF (0-13.0) 05/02/19 Unknown Hyaline Casts 8 /LPF 05/02/19 Unknown Granular Casts 6 /LPF 05/02/19 Unknown 1+ /HPF 05/02/19 Unknown Presumptive negative 05/02/19 Unknown Presumptive negative 05/02/19 Unknown Ur Barbiturates Screen Presumptive negative 05/02/19 Unknown Ur Phencyclidine Scrn Presumptive negative 05/02/19 Unknown Ur Amphetamines Screen Presumptive negative 05/02/19 Unknown U Benzodiazepines Scrn Presumptive positive 05/02/19 Unknown Presumptive negative 05/02/19 Unknown U Marijuana (THC) Screen Presumptive negative 05/02/19 Unknown Disclamer 05/02/19 Unknown Active Medications - Current Medications Current Medications: Generic Name Dose Route Start Last Admin Trade Name Freq PRN Reason Stop Dose Admin Acetaminophen 650 mg 05/02/19 02:25 05/04/19 10:15 Tylenol PO 650 mg Q4H PRN Administration Pain MILD(1-3)/Fever >100.5/FARLEY Lipase/Protease/Amylase 1 each 05/02/19 14:30 Pancreaze 10,500 Unit FEEDTUBE PRN PRN For Clogged Feeding Tube Baclofen 10 mg 05/04/19 14:00 Lioresal PO TID NEVIN Dextrose 50 ml 05/02/19 03:04 D50w (25gm) Syringe IV PRN PRN Hypoglycemia Hydrophilic Ointment 1 applic 05/02/19 01:04 Vaseline Lip Therapy TP Q2HR PRN Dry Lips Midazolam HCl 100 mg/ Sodium 100 mls @ 2 mls/hr 05/02/19 03:00 05/02/19 19:02 Chloride IV 0 mg/hr TITR NEVIN 0 mls/hr Titration Protocol 2 MG/HR Levetiracetam 1,000 mg/ 110 mls @ 400 mls/hr 05/02/19 12:00 05/04/19 10:00 Dextrose IV 400 mls/hr Q12HR NEVIN Administration Insulin Human Lispro 0 unit 05/02/19 06:00 05/04/19 06:17 Humalog SUB-Q Not Given Q6HR [facility] Protocol Levetiracetam 1,000 mg 05/04/19 14:00 Keppra PO BID NEVIN Lorazepam 1 mg 05/02/19 09:34 05/04/19 06:16 Ativan IV 1 mg Q4H PRN Administration Agitation Metoprolol Tartrate 25 mg 05/02/19 22:00 05/04/19 09:59 Lopressor PO 25 mg BID [facility] Administration Midazolam HCl 2 mg 05/02/19 02:34 Versed IV Q10MIN PRN Sedation Multi-Ingred Cream/Lotion/Oil/Oint 1 applic 05/02/19 01:04 Artificial Tears Ophth Oint OU Q4HR PRN Dry Eye(s) Ondansetron HCl 4 mg 05/02/19 02:25 Zofran IV Q8H PRN Nausea And Vomiting Potassium Chloride 20 meq 05/04/19 14:00 K-Dur PO QDAY [facility] Rivaroxaban 20 mg 05/04/19 14:00 Xarelto PO QDAY [facility] Protocol Simple Syrup 15 ml 05/02/19 14:30 Simple Syrup FEEDTUBE PRN PRN Hypoglycemia Simple Syrup 30 ml 05/02/19 14:30 Simple Syrup FEEDTUBE PRN PRN Hypoglycemia Sodium Bicarbonate 325 mg 05/02/19 14:30 Sodium Bicarbonate FEEDTUBE PRN PRN For Clogged Feeding Tube Sodium Chloride 10 ml 05/02/19 10:00 05/04/19 10:01 Sodium Chloride Flush Syringe 10 Ml IV 10 ml BID NEVIN Administration Sodium Chloride 10 ml 05/02/19 02:25 Sodium Chloride Flush Syringe 10 Ml IV PRN PRN LINE FLUSH Nutrition/Malnutrition Assess - Dietary Evaluation Nutrition/Malnutrition Findings: Nutrition Notes Start: 05/02/19 14:09 Freq: Status: Active Protocol: Document 05/03/19 11:55 LM (Rec: 05/03/19 12:04 LM [id number]) Nutrition Notes Initial or Follow up Reassessment Current Diagnosis Diabetes,Stroke Other Pertinent Diagnosis seizures, RLE and LLE wounds Current Diet Vital High Protein at 65 ml/hr Labs/Tests BG 115 Na 136 Pertinent Medications Reviewed Height 6 ft Weight 115 kg [place] Body Weight (kg) 80.90 BMI 34.4 Subjective/Other Information Vital High Protein running at 35 ml/hr at time of visit. Pt on vent. #2 Nutrition Diagnosis Increased nutrient needs ( specify in comment below) Comments: Protein Etiology Wound healing As Evidenced by Signs and Symptoms LLE and RLE wounds Diagnosis Progress(for reassessment Continues documentation) #1 Diagnosis Progress(for reassessment Continues documentation) Is patient on ventilator? Yes Is Patient Ambulatory and/or Out of Bed No REE-([facility]-confined to bed) [phone] Additional Notes Energy needs 65-75% of energy needs: 4284-1823 kcal Protein: 162g (2g/kg IBW 80.9 kg) 1 ml/kcal Nutrition Intervention Change Diet Order: TF Nutrition Support: Vital High Protein at 65 ml/hr Flush 200 ml q4hr Kcal 1,600 Protein (gm) 136 Fluid (mL) 1,304 Goal #1 TF tolerance Goal #2 Meet at least 75% of energy and protein needs Anticipated Discharge Needs: Unable to determine at this time Follow-Up By: 05/06/19 Additional Comments F/U for TF tolerance/rate
--- NOTE | 2019-05-04 14:45 | Progress Note ---
Assessment and Plan The patient is stable from a cardiac standpoint. 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 Continue other cardiac management. The patient has been seen in conjunction with Dr. Kahlil Hope, who agrees with assessment and plan. - Patient Problems (1) Atrial fibrillation with RVR Current Visit: Yes Status: Acute (2) Acute respiratory failure Current Visit: Yes Status: Acute (3) Altered mental status Current Visit: Yes Status: Acute (4) Diabetes Current Visit: Yes Status: Acute (5) HTN (hypertension) Current Visit: Yes Status: Acute (6) Seizure disorder Current Visit: Yes Status: Acute (7) History of CVA (cerebrovascular accident) Current Visit: Yes Status: Chronic (8) Coagulopathy Current Visit: Yes Status: Acute (9) Normal coronary arteries Current Visit: Yes Status: Chronic (10) Status post craniectomy Current Visit: Yes Status: Chronic Subjective Date of service: 05/04/19 Principal diagnosis: AFib Interval history: Patient awaiting transfer out of CCU. He is extubated and in NAD. He is currently in afib with CVR. Amiodarone stopped by pulmonology d/t nursing concerns about hypotension. Objective Last Vital Signs Temp 98.3 F 05/04/19 12:00 Pulse 64 05/04/19 13:00 Resp 21 05/04/19 13:00 BP 117/61 05/04/19 13:00 Pulse Ox 100 05/04/19 13:00 - Physical Examination General: No Apparent Distress HEENT: Positive: PERRL Neck: Positive: neck supple Cardiac: Positive: irregularly irregular Lungs: Positive: Normal Exam Neuro: Positive: Grossly Intact Abdomen: Positive: Unremarkable /Rectal: Other (deferred) Skin: Positive: Clear. Negative: Rash, Wound Musculoskeletal: No Pain Extremities: Present: normal. Absent: edema - Labs and Meds CBC 05/04/19 Range/Units 03:04 WBC 5.8 (4.5-11.0) K/mm3 RBC 4.54 (3.65-5.03) M/mm3 Hgb 13.8 (11.8-15.2) gm/dl Hct 41.5 (35.5-45.6) % Plt Count 85 L (140-440) K/mm3 Comprehensive Metabolic Panel 05/04/19 Range/Units 05:24 Sodium 139 (137-145) mmol/L Potassium 4.4 (3.6-5.0) mmol/L Chloride 104.6 (98-107) mmol/L Carbon Dioxide 23 (22-30) mmol/L BUN 19 (9-20) mg/dL Creatinine 1.3 (0.8-1.5) mg/dL Glucose 84 (75-100) mg/dL Calcium 8.7 (8.4-10.2) mg/dL - Imaging and Cardiology EKG: report reviewed, image reviewed Echo: pending, report reviewed (10/2017 showed EF 55%, RA mildly dilated, trace MR, mod TR. ) Cardiac cath: report reviewed (2003 showed normal coronaries. ) - Telemetry EKG Rhythm: Atrial Fibrillation
[2019-05-04] MEDS: LIORESAL PO SCH ×2 (15:35→21:55)
[2019-05-04] MEDS: K-DUR PO SCH (15:35)
[2019-05-04] MEDS: KEPPRA PO SCH ×2 (15:36→21:55)
[2019-05-04] MEDS: CORDARONE PO SCH (21:56)
[2019-05-05 07:34] LABS: Hematocrit 46.2 % (35.5-45.6); Hemoglobin 15.7 gm/dl (11.8-15.2); Mean Corpuscular HGB Conc 34 % (32-34); Mean Corpuscular Volume 91 fl (84-94); Platelet Count 97 K/mm3 (140-440); Red Blood Count 5.06 M/mm3 (3.65-5.03); Red Cell Distribution Width 14.4 % (13.2-15.2)
[2019-05-05 07:57] LABS: BUN/Creatinine Ratio 14; Blood Urea Nitrogen 18 mg/dL (9-20); Calcium 9.1 mg/dL (8.4-10.2); Hemolysis Index 6
[2019-05-05] MEDS: LIORESAL PO SCH ×3 (08:00→21:14)
[2019-05-05] MEDS: HumaLOG SUB-Q SCH ×3 (08:06→18:00)
--- NOTE | 2019-05-05 08:57 | Progress Note ---
Assessment and Plan Assessment and plan: 63 -year-old man with a history of CVA with right-sided weakness, seizure, diabetes, A. fib was brought to the emergency room for evaluation. at bedside state that the granddaughter notified her that the patient is staring at the ceiling while she was talking to him. She went to check on him and found that he was twitching the left side and unresponsive. EMS was called, they gave him Versed for seizure. He was also found to be in SVT rate of 200, he was given adenosine 6 and 12, heart rate went from 180 to 200. In the emergency room he was shocked once with 50 J and intubated, his heart rate went to 150. He was shocked again at 200J, heart rate went to low 100s, started on amiodarone drip, admitted to ICU. He improved extubated 05/03/19 and transferred to Telemetry Acute respiratory failure Now extubated 03/03, was intubated Pulm following SVT On amiodarone. cardiology following CVA with residual right-sided weakness seizure disorder Seizures Consulted Neuro. evaluated by Dr. Mijares Diabetes mellitus type 2 [facility] and hs A. fib He was on Xarelto. Repeat INR today 2.66 hold xarelto discussed with Dr. Hope, cardiology Thrombocytopenia Monitor Full code status History Interval history: Extubated 05/03 No more seizures since admitted Hospitalist Physical - Physical exam Narrative exam: Gen: Not in acute distress, lying in bed, obese, HEENT: Normocephalic, atraumatic Neck: supple, no JVD Heart: S1 and S2 reg, no murmurs, rubs or gallop Lungs: Clear to auscultation, no rhonchi, no wheeze Abd: soft, non tender, non distended, normal BS, Ext: No edema, no clubbing, no cyanosis Neuro: Awake,alert - Constitutional Vitals: Temp Pulse Resp BP Pulse Ox 98.4 F 63 18 112/67 96 05/05/19 08:32 05/05/19 08:32 05/05/19 08:32 05/05/19 08:32 05/05/19 08:32 General appearance: Present: other (intubated, ) Results - Labs CBC & Chem 7: 05/05/19 07:00 05/05/19 07:00 Labs: Laboratory Last Values WBC 5.9 K/mm3 (4.5-11.0) 05/05/19 07:00 RBC 5.06 M/mm3 (3.65-5.03) H 05/05/19 07:00 Hgb 15.7 gm/dl (11.8-15.2) H 05/05/19 07:00 Hct 46.2 % (35.5-45.6) H 05/05/19 07:00 MCV 91 fl (84-94) 05/05/19 07:00 MCH 31 pg (28-32) 05/05/19 07:00 MCHC 34 % (32-34) 05/05/19 07:00 RDW 14.4 % (13.2-15.2) 05/05/19 07:00 Plt Count 97 K/mm3 (140-440) L 05/05/19 07:00 Lymph % (Auto) 5.3 % (13.4-35.0) L 05/02/19 02:44 Reagan % (Auto) 5.1 % (0.0-7.3) 05/02/19 02:44 Eos % (Auto) 0.0 % (0.0-4.3) 05/02/19 02:44 Baso % (Auto) 0.3 % (0.0-1.8) 05/02/19 02:44 Lymph # 0.5 K/mm3 (1.2-5.4) L 05/02/19 02:44 Reagan # 0.5 K/mm3 (0.0-0.8) 05/02/19 02:44 Eos # 0.0 K/mm3 (0.0-0.4) 05/02/19 02:44 Baso # 0.0 K/mm3 (0.0-0.1) 05/02/19 02:44 Seg Neutrophils % 89.3 % (40.0-70.0) H 05/02/19 02:44 Seg Neutrophils # 8.0 K/mm3 (1.8-7.7) H 05/02/19 02:44 PT 36.7 Sec. (12.2-14.9) H 05/03/19 05:29 INR 3.77 (0.87-1.13) H 05/03/19 05:29 APTT 28.6 Sec. (24.2-36.6) 05/01/19 23:09 POC ABG pH 7.419 (7.35-7.45) 05/03/19 12:24 ABG pH 7.437 pH Units (7.350-7.450) 05/03/19 Unknown POC ABG pCO2 32.3 (35-45) L 05/03/19 12:24 ABG pCO2 32.9 mm Hg 05/03/19 Unknown POC ABG pO2 100 (80-105) 05/03/19 12:24 ABG pO2 97.6 mm Hg (80.0-90.0) H 05/03/19 Unknown POC ABG HCO3 20.9 (22-26 mml/L) 05/03/19 12:24 ABG HCO3 21.7 mmol/L (20.0-26.0) 05/03/19 Unknown POC ABG Total CO2 22 (23-27mmol/L) 05/03/19 12:24 POC ABG O2 Sat 98 05/03/19 12:24 ABG O2 Saturation 97.6 % (95.0-99.0) 05/03/19 Unknown ABG O2 Content 18.2 (0.0-44) 05/03/19 Unknown POC ABG Base Excess -4 ((-2) - (+3)mmol/L) 05/03/19 12:24 ABG Base Excess -1.7 mmol/L (-2.0-3.0) 05/03/19 Unknown ABG Hemoglobin 13.5 gm/dl (14.0-18.0) L 05/03/19 Unknown ABG Carboxyhemoglobin 1.4 % (0.0-5.0) 05/03/19 Unknown ABG Methemoglobin 0.6 % (0.0-1.5) 05/03/19 Unknown 95.7 % (95.0-99.0) 05/03/19 Unknown 25 % 05/03/19 Unknown Sodium 141 mmol/L (137-145) 05/05/19 07:00 Potassium 3.6 mmol/L (3.6-5.0) 05/05/19 07:00 Chloride 104.9 mmol/L (98-107) 05/05/19 07:00 Carbon Dioxide 22 mmol/L (22-30) 05/05/19 07:00 18 mmol/L 05/05/19 07:00 BUN 18 mg/dL (9-20) 05/05/19 07:00 1.3 mg/dL (0.8-1.5) 05/05/19 07:00 Estimated GFR > 60 ml/min 05/05/19 07:00 14 % 05/05/19 07:00 Glucose 80 mg/dL (75-100) 05/05/19 07:00 POC Glucose 82 (70-105) 05/05/19 04:10 Lactic Acid 1.70 mmol/L (0.7-2.0) 05/01/19 23:09 Calcium 9.1 mg/dL (8.4-10.2) 05/05/19 07:00 1.20 mg/dL (0.1-1.2) 05/03/19 05:29 AST 29 units/L (5-40) 05/03/19 05:29 ALT 20 units/L (7-56) 05/03/19 05:29 54 units/L (35-129) 05/03/19 05:29 138 units/L (55-170) 05/02/19 10:20 CK-MB (CK-2) 2.1 ng/mL (0.0-4.0) 05/02/19 10:20 CK-MB (CK-2) Rel Index 1.5 (0-4) 05/02/19 10:20 0.020 ng/mL (0.00-0.029) 05/03/19 10:48 NT-Pro-B Natriuret Pep 1146 pg/mL (0-900) H 05/01/19 23:10 5.8 g/dL (6.3-8.2) L 05/03/19 05:29 3.0 g/dL (3.9-5) L 05/03/19 05:29 1.1 % 05/03/19 05:29 Triglycerides 47 mg/dL (2-149) 05/02/19 10:20 Cholesterol 126 mg/dL (50-199) 05/02/19 10:20 76 mg/dL (50-130) 05/02/19 10:20 62 mg/dL (40-59) H 05/02/19 10:20 2.03 % 05/02/19 10:20 Yellow (Yellow) 05/02/19 Unknown Slightly-cloudy (Clear) 05/02/19 Unknown 5.0 (5.0-7.0) 05/02/19 Unknown Ur Specific [place] 1.027 (1.003-1.030) 05/02/19 Unknown 100 mg/dl mg/dL (Negative) 05/02/19 Unknown 150 mg/dL (Negative) 05/02/19 Unknown Tr mg/dL (Negative) 05/02/19 Unknown Neg (Negative) 05/02/19 Unknown Neg (Negative) 05/02/19 Unknown Neg (Negative) 05/02/19 Unknown < 2.0 mg/dL (<2.0) 05/02/19 Unknown Ur Leukocyte Esterase Neg (Negative) 05/02/19 Unknown 4.0 /HPF (0.0-6.0) 05/02/19 Unknown 2.0 /HPF (0.0-6.0) 05/02/19 Unknown U Epithel Cells (Auto) 1.0 /HPF (0-13.0) 05/02/19 Unknown Hyaline Casts 8 /LPF 05/02/19 Unknown Granular Casts 6 /LPF 05/02/19 Unknown 1+ /HPF 05/02/19 Unknown Presumptive negative 05/02/19 Unknown Presumptive negative 05/02/19 Unknown Ur Barbiturates Screen Presumptive negative 05/02/19 Unknown Ur Phencyclidine Scrn Presumptive negative 05/02/19 Unknown Ur Amphetamines Screen Presumptive negative 05/02/19 Unknown U Benzodiazepines Scrn Presumptive positive 05/02/19 Unknown Presumptive negative 05/02/19 Unknown U Marijuana (THC) Screen Presumptive negative 05/02/19 Unknown Disclamer 05/02/19 Unknown Active Medications - Current Medications Current Medications: Generic Name Dose Route Start Last Admin Trade Name Freq PRN Reason Stop Dose Admin Acetaminophen 650 mg 05/02/19 02:25 05/04/19 10:15 Tylenol PO 650 mg Q4H PRN Administration Pain MILD(1-3)/Fever >100.5/FARLEY Amiodarone HCl 200 mg 05/04/19 22:00 05/04/19 21:56 Cordarone PO 200 mg BID NEVIN Administration Lipase/Protease/Amylase 1 each 05/02/19 14:30 Pancreaze 10,500 Unit FEEDTUBE PRN PRN For Clogged Feeding Tube Baclofen 10 mg 05/04/19 14:00 05/04/19 21:55 Lioresal PO 10 mg TID NEVIN Administration Dextrose 50 ml 05/02/19 03:04 D50w (25gm) Syringe IV PRN PRN Hypoglycemia Hydrophilic Ointment 1 applic 05/02/19 01:04 Vaseline Lip Therapy TP Q2HR PRN Dry Lips Insulin Human Lispro 0 unit 05/02/19 06:00 05/05/19 08:06 Humalog SUB-Q Not Given Q6HR [facility] Protocol Levetiracetam 1,000 mg 05/04/19 14:00 05/04/19 21:55 Keppra PO 1,000 mg BID NEVIN Administration Lorazepam 1 mg 05/02/19 09:34 05/04/19 06:16 Ativan IV 1 mg Q4H PRN Administration Agitation Metoprolol Tartrate 25 mg 05/02/19 22:00 05/04/19 21:56 Lopressor PO 25 mg BID NEVIN Administration Multi-Ingred Cream/Lotion/Oil/Oint 1 applic 05/02/19 01:04 Artificial Tears Ophth Oint OU Q4HR PRN Dry Eye(s) Ondansetron HCl 4 mg 05/02/19 02:25 Zofran IV Q8H PRN Nausea And Vomiting Potassium Chloride 20 meq 05/04/19 14:00 05/04/19 15:35 K-Dur PO 20 meq QDAY NEVIN Administration Rivaroxaban 20 mg 05/04/19 14:00 05/04/19 15:35 Xarelto PO 20 mg QDAY [facility] Administration Protocol Simple Syrup 15 ml 05/02/19 14:30 Simple Syrup FEEDTUBE PRN PRN Hypoglycemia Simple Syrup 30 ml 05/02/19 14:30 Simple Syrup FEEDTUBE PRN PRN Hypoglycemia Sodium Bicarbonate 325 mg 05/02/19 14:30 Sodium Bicarbonate FEEDTUBE PRN PRN For Clogged Feeding Tube Sodium Chloride 10 ml 05/02/19 10:00 05/04/19 22:55 Sodium Chloride Flush Syringe 10 Ml IV 10 ml BID NEVIN Administration Sodium Chloride 10 ml 05/02/19 02:25 Sodium Chloride Flush Syringe 10 Ml IV PRN PRN LINE FLUSH Nutrition/Malnutrition Assess - Dietary Evaluation Nutrition/Malnutrition Findings: Nutrition Notes Start: 05/02/19 14:09 Freq: Status: Active Protocol: Document 05/03/19 11:55 LM (Rec: 05/03/19 12:04 LM [email or web address]) Nutrition Notes Initial or Follow up Reassessment Current Diagnosis Diabetes,Stroke Other Pertinent Diagnosis seizures, RLE and LLE wounds Current Diet Vital High Protein at 65 ml/hr Labs/Tests BG 115 Na 136 Pertinent Medications Reviewed Height 6 ft Weight 115 kg [place] Body Weight (kg) 80.90 BMI 34.4 Subjective/Other Information Vital High Protein running at 35 ml/hr at time of visit. Pt on vent. #2 Nutrition Diagnosis Increased nutrient needs ( specify in comment below) Comments: Protein Etiology Wound healing As Evidenced by Signs and Symptoms LLE and RLE wounds Diagnosis Progress(for reassessment Continues documentation) #1 Diagnosis Progress(for reassessment Continues documentation) Is patient on ventilator? Yes Is Patient Ambulatory and/or Out of Bed No REE-([facility]-confined to bed) [phone] Additional Notes Energy needs 65-75% of energy needs: 7453-0272 kcal Protein: 162g (2g/kg IBW 80.9 kg) 1 ml/kcal Nutrition Intervention Change Diet Order: TF Nutrition Support: Vital High Protein at 65 ml/hr Flush 200 ml q4hr Kcal 1,600 Protein (gm) 136 Fluid (mL) 1,304 Goal #1 TF tolerance Goal #2 Meet at least 75% of energy and protein needs Anticipated Discharge Needs: Unable to determine at this time Follow-Up By: 05/06/19 Additional Comments F/U for TF tolerance/rate
--- NOTE | 2019-05-05 09:51 | Progress Note ---
Subjective Date of service: 05/05/19 Principal diagnosis: AFib Interval history: Thanks for the consult reviewed all the notes and went over recent labs/ imaging studies hx of strokes from a fib and seizures see the CT Objective - Vital Sign Vital Signs - 12hr 05/04/19 05/04/19 05/05/19 21:56 23:54 04:02 Temperature 98.6 F 98.0 F Pulse Rate 68 78 71 Respiratory 18 18 Rate Blood Pressure 151/68 136/67 Blood Pressure 128/68 [Left] O2 Sat by Pulse 99 92 Oximetry 05/05/19 08:32 Temperature 98.4 F Pulse Rate 63 Respiratory 18 Rate Blood Pressure 112/67 Blood Pressure [Left] O2 Sat by Pulse 96 Oximetry - Laboratory Findings CBC and BMP: 05/05/19 07:00 05/05/19 07:00 Abnormal Lab Findings: Abnormal Labs 05/01/19 05/01/19 05/01/19 01:06 23:09 23:10 RBC Hgb Hct RDW Plt Count Lymph % (Auto) Lymph # Seg Neutrophils % Seg Neutrophils # PT 22.6 H INR 2.04 H ABG pH 7.275 L POC ABG pCO2 ABG pO2 267.9 H ABG HCO3 19.4 L ABG O2 Saturation 99.4 H ABG Base Excess -7.2 L ABG Hemoglobin Sodium BUN Glucose POC Glucose Troponin T NT-Pro-B Natriuret Pep 1146 H Total Protein Albumin HDL Cholesterol 05/02/19 05/02/19 05/02/19 01:32 02:44 02:44 RBC 5.36 H Hgb 16.2 H 15.3 H Hct 49.9 H 45.9 H RDW 15.4 H Plt Count 125 L 122 L Lymph % (Auto) 5.7 L 5.3 L Lymph # 0.5 L 0.5 L Seg Neutrophils % 90.0 H 89.3 H Seg Neutrophils # 8.4 H 8.0 H PT INR ABG pH POC ABG pCO2 ABG pO2 ABG HCO3 ABG O2 Saturation ABG Base Excess ABG Hemoglobin Sodium BUN 24 H Glucose 263 H POC Glucose Troponin T NT-Pro-B Natriuret Pep Total Protein Albumin HDL Cholesterol 05/02/19 05/02/19 05/02/19 06:11 10:20 12:47 RBC Hgb Hct RDW Plt Count Lymph % (Auto) Lymph # Seg Neutrophils % Seg Neutrophils # PT INR ABG pH POC ABG pCO2 ABG pO2 ABG HCO3 ABG O2 Saturation ABG Base Excess ABG Hemoglobin Sodium BUN Glucose POC Glucose 215 H 158 H Troponin T 0.031 H D NT-Pro-B Natriuret Pep Total Protein Albumin HDL Cholesterol 62 H 05/02/19 05/02/19 05/02/19 18:31 23:34 Unknown RBC Hgb Hct RDW Plt Count Lymph % (Auto) Lymph # Seg Neutrophils % Seg Neutrophils # PT INR ABG pH POC ABG pCO2 ABG pO2 212.5 H ABG HCO3 19.2 L ABG O2 Saturation 99.3 H ABG Base Excess -3.9 L ABG Hemoglobin Sodium BUN Glucose POC Glucose 174 H 112 H Troponin T NT-Pro-B Natriuret Pep Total Protein Albumin HDL Cholesterol 05/03/19 05/03/19 05/03/19 04:35 05:29 05:29 RBC Hgb Hct RDW Plt Count Lymph % (Auto) Lymph # Seg Neutrophils % Seg Neutrophils # PT 36.7 H INR 3.77 H ABG pH 7.472 H POC ABG pCO2 ABG pO2 206.8 H ABG HCO3 ABG O2 Saturation 99.3 H ABG Base Excess ABG Hemoglobin Sodium 136 L BUN Glucose 115 H POC Glucose Troponin T NT-Pro-B Natriuret Pep Total Protein 5.8 L Albumin 3.0 L HDL Cholesterol 05/03/19 05/03/19 05/03/19 05:29 05:45 12:18 RBC Hgb Hct RDW Plt Count 87 L Lymph % (Auto) Lymph # Seg Neutrophils % Seg Neutrophils # PT INR ABG pH POC ABG pCO2 ABG pO2 ABG HCO3 ABG O2 Saturation ABG Base Excess ABG Hemoglobin Sodium BUN Glucose POC Glucose 113 H 116 H Troponin T NT-Pro-B Natriuret Pep Total Protein Albumin HDL Cholesterol 05/03/19 05/03/19 05/04/19 12:24 Unknown 03:04 RBC Hgb Hct RDW Plt Count 85 L Lymph % (Auto) Lymph # Seg Neutrophils % Seg Neutrophils # PT INR ABG pH POC ABG pCO2 32.3 L ABG pO2 97.6 H ABG HCO3 ABG O2 Saturation ABG Base Excess ABG Hemoglobin 13.5 L Sodium BUN Glucose POC Glucose Troponin T NT-Pro-B Natriuret Pep Total Protein Albumin HDL Cholesterol 05/04/19 05/05/19 17:21 07:00 RBC 5.06 H Hgb 15.7 H Hct 46.2 H RDW Plt Count 97 L Lymph % (Auto) Lymph # Seg Neutrophils % Seg Neutrophils # PT INR ABG pH POC ABG pCO2 ABG pO2 ABG HCO3 ABG O2 Saturation ABG Base Excess ABG Hemoglobin Sodium BUN Glucose POC Glucose 121 H Troponin T NT-Pro-B Natriuret Pep Total Protein Albumin HDL Cholesterol
[2019-05-05] MEDS: CORDARONE PO SCH ×2 (09:55→21:14)
[2019-05-05] MEDS: K-DUR PO SCH (09:55)
[2019-05-05] MEDS: KEPPRA PO SCH ×2 (09:55→21:14)
[2019-05-05] MEDS: SODIUM CHLORIDE FLUSH SYRINGE 10 ML IV SCH ×2 (09:56→21:15)
[2019-05-05] MEDS: LOPRESSOR PO SCH ×2 (09:56→21:15)
--- NOTE | 2019-05-05 10:25 | Progress Note ---
Assessment and Plan Patient's heart rate and blood pressure are stable. Continue amiodarone at 200 mg BID and Lopressor at 25 mg BID as well as other cardiac management. The patient has been seen in conjunction with Dr. Kahlil Hope, who agrees with the assessment and plan. - Patient Problems (1) Atrial fibrillation with RVR Current Visit: Yes Status: Acute (2) Acute respiratory failure Current Visit: Yes Status: Acute (3) Altered mental status Current Visit: Yes Status: Acute (4) Diabetes Current Visit: Yes Status: Acute (5) HTN (hypertension) Current Visit: Yes Status: Acute (6) Seizure disorder Current Visit: Yes Status: Acute (7) History of CVA (cerebrovascular accident) Current Visit: Yes Status: Chronic (8) Coagulopathy Current Visit: Yes Status: Acute (9) Normal coronary arteries Current Visit: Yes Status: Chronic (10) Status post craniectomy Current Visit: Yes Status: Chronic Subjective Date of service: 05/05/19 Principal diagnosis: AFib Interval history: The patient is lying in bed in NAD with minimal verbalization. He denies any cardiac complaints. Objective Last Vital Signs Temp 98.4 F 05/05/19 08:32 Pulse 65 05/05/19 09:56 Resp 18 05/05/19 08:32 BP 120/65 05/05/19 09:56 Pulse Ox 96 05/05/19 08:32 - Physical Examination General: No Apparent Distress HEENT: Positive: PERRL Neck: Positive: neck supple Cardiac: Positive: irregularly irregular Lungs: Positive: Normal Exam Neuro: Positive: Grossly Intact Abdomen: Positive: Unremarkable /Rectal: Other (deferred) Skin: Positive: Clear, Other (left calf open wound ). Negative: Rash, Wound Musculoskeletal: No Pain Extremities: Present: normal. Absent: edema - Labs and Meds CBC 05/05/19 Range/Units 07:00 WBC 5.9 (4.5-11.0) K/mm3 RBC 5.06 H (3.65-5.03) M/mm3 Hgb 15.7 H (11.8-15.2) gm/dl Hct 46.2 H (35.5-45.6) % Plt Count 97 L (140-440) K/mm3 Comprehensive Metabolic Panel 05/05/19 Range/Units 07:00 Sodium 141 (137-145) mmol/L Potassium 3.6 (3.6-5.0) mmol/L Chloride 104.9 (98-107) mmol/L Carbon Dioxide 22 (22-30) mmol/L BUN 18 (9-20) mg/dL Creatinine 1.3 (0.8-1.5) mg/dL Glucose 80 (75-100) mg/dL Calcium 9.1 (8.4-10.2) mg/dL - Imaging and Cardiology EKG: report reviewed, image reviewed Echo: pending, report reviewed (05/02/19: EF 20-25%, LV filling pattern restrictive, trace MR, trace TR) Cardiac cath: report reviewed (2003 showed normal coronaries. ) - Telemetry EKG Rhythm: Atrial Fibrillation
[2019-05-05 10:56] LABS: INR 2.66 (0.87-1.13)
--- NOTE | 2019-05-05 13:27 | Progress Note ---
Assessment and Plan 63 y/o male with acute respiratory failure, secondary to medication administration to abort seizure or seizure like activity with subsequent SVT and required cardioversion in the ED per reports. 1. Resp-asked nursing to check room air sats. If greater than 88 discontinue oxygen 2. Stable pulm coles. Will sign off. Subjective Date of service: 05/05/19 Principal diagnosis: AFib Interval history: No acute events overnight. Currently on room air. Stable. Sister at bedside. Objective Vital Signs - 12hr 05/05/19 05/05/19 05/05/19 04:02 08:32 09:54 Temperature 98.0 F 98.4 F Pulse Rate 71 63 64 Respiratory 18 18 Rate Blood Pressure 136/67 112/67 120/65 O2 Sat by Pulse 92 96 98 Oximetry 05/05/19 05/05/19 09:56 11:15 Temperature 97.9 F Pulse Rate 65 44 L Respiratory 18 Rate Blood Pressure 120/65 118/65 O2 Sat by Pulse 98 Oximetry Constitutional: appears uncomfortable, other (obtunded) ENT: other (orally intubated and sedated) Neck: supple Effort: normal Ascultation: Bilateral: clear Percussion: Bilateral: not dull Cardiovascular: regular rate and rhythm Gastrointestinal: soft, non-tender Extremities: no edema, pink and warm, pulses normal Neurologic: unable to assess CBC and BMP: 05/05/19 07:00 05/05/19 07:00 ABG, PT/INR, D-dimer: ABG POC ABG pH 7.419 (7.35-7.45) 05/03/19 12:24 ABG pH 7.437 pH Units (7.350-7.450) 05/03/19 Unknown POC ABG pCO2 32.3 (35-45) L 05/03/19 12:24 ABG pCO2 32.9 mm Hg 05/03/19 Unknown POC ABG pO2 100 (80-105) 05/03/19 12:24 ABG pO2 97.6 mm Hg (80.0-90.0) H 05/03/19 Unknown POC ABG HCO3 20.9 (22-26 mml/L) 05/03/19 12:24 POC ABG Total CO2 22 (23-27mmol/L) 05/03/19 12:24 POC ABG O2 Sat 98 05/03/19 12:24 ABG O2 Saturation 97.6 % (95.0-99.0) 05/03/19 Unknown PT/INR, D-dimer PT 27.9 Sec. (12.2-14.9) H 05/05/19 10:20 INR 2.66 (0.87-1.13) H 05/05/19 10:20 Abnormal lab findings: Abnormal Labs 05/01/19 05/01/19 05/01/19 01:06 23:09 23:10 RBC Hgb Hct RDW Plt Count Lymph % (Auto) Lymph # Seg Neutrophils % Seg Neutrophils # PT 22.6 H INR 2.04 H ABG pH 7.275 L POC ABG pCO2 ABG pO2 267.9 H ABG HCO3 19.4 L ABG O2 Saturation 99.4 H ABG Base Excess -7.2 L ABG Hemoglobin Sodium BUN Glucose POC Glucose Troponin T NT-Pro-B Natriuret Pep 1146 H Total Protein Albumin HDL Cholesterol 05/02/19 05/02/19 05/02/19 01:32 02:44 02:44 RBC 5.36 H Hgb 16.2 H 15.3 H Hct 49.9 H 45.9 H RDW 15.4 H Plt Count 125 L 122 L Lymph % (Auto) 5.7 L 5.3 L Lymph # 0.5 L 0.5 L Seg Neutrophils % 90.0 H 89.3 H Seg Neutrophils # 8.4 H 8.0 H PT INR ABG pH POC ABG pCO2 ABG pO2 ABG HCO3 ABG O2 Saturation ABG Base Excess ABG Hemoglobin Sodium BUN 24 H Glucose 263 H POC Glucose Troponin T NT-Pro-B Natriuret Pep Total Protein Albumin HDL Cholesterol 05/02/19 05/02/19 05/02/19 06:11 10:20 12:47 RBC Hgb Hct RDW Plt Count Lymph % (Auto) Lymph # Seg Neutrophils % Seg Neutrophils # PT INR ABG pH POC ABG pCO2 ABG pO2 ABG HCO3 ABG O2 Saturation ABG Base Excess ABG Hemoglobin Sodium BUN Glucose POC Glucose 215 H 158 H Troponin T 0.031 H D NT-Pro-B Natriuret Pep Total Protein Albumin HDL Cholesterol 62 H 05/02/19 05/02/19 05/02/19 18:31 23:34 Unknown RBC Hgb Hct RDW Plt Count Lymph % (Auto) Lymph # Seg Neutrophils % Seg Neutrophils # PT INR ABG pH POC ABG pCO2 ABG pO2 212.5 H ABG HCO3 19.2 L ABG O2 Saturation 99.3 H ABG Base Excess -3.9 L ABG Hemoglobin Sodium BUN Glucose POC Glucose 174 H 112 H Troponin T NT-Pro-B Natriuret Pep Total Protein Albumin HDL Cholesterol 05/03/19 05/03/19 05/03/19 04:35 05:29 05:29 RBC Hgb Hct RDW Plt Count Lymph % (Auto) Lymph # Seg Neutrophils % Seg Neutrophils # PT 36.7 H INR 3.77 H ABG pH 7.472 H POC ABG pCO2 ABG pO2 206.8 H ABG HCO3 ABG O2 Saturation 99.3 H ABG Base Excess ABG Hemoglobin Sodium 136 L BUN Glucose 115 H POC Glucose Troponin T NT-Pro-B Natriuret Pep Total Protein 5.8 L Albumin 3.0 L HDL Cholesterol 05/03/19 05/03/19 05/03/19 05:29 05:45 12:18 RBC Hgb Hct RDW Plt Count 87 L Lymph % (Auto) Lymph # Seg Neutrophils % Seg Neutrophils # PT INR ABG pH POC ABG pCO2 ABG pO2 ABG HCO3 ABG O2 Saturation ABG Base Excess ABG Hemoglobin Sodium BUN Glucose POC Glucose 113 H 116 H Troponin T NT-Pro-B Natriuret Pep Total Protein Albumin HDL Cholesterol 05/03/19 05/03/19 05/04/19 12:24 Unknown 03:04 RBC Hgb Hct RDW Plt Count 85 L Lymph % (Auto) Lymph # Seg Neutrophils % Seg Neutrophils # PT INR ABG pH POC ABG pCO2 32.3 L ABG pO2 97.6 H ABG HCO3 ABG O2 Saturation ABG Base Excess ABG Hemoglobin 13.5 L Sodium BUN Glucose POC Glucose Troponin T NT-Pro-B Natriuret Pep Total Protein Albumin HDL Cholesterol 05/04/19 05/05/19 05/05/19 17:21 07:00 10:20 RBC 5.06 H Hgb 15.7 H Hct 46.2 H RDW Plt Count 97 L Lymph % (Auto) Lymph # Seg Neutrophils % Seg Neutrophils # PT 27.9 H INR 2.66 H ABG pH POC ABG pCO2 ABG pO2 ABG HCO3 ABG O2 Saturation ABG Base Excess ABG Hemoglobin Sodium BUN Glucose POC Glucose 121 H Troponin T NT-Pro-B Natriuret Pep Total Protein Albumin HDL Cholesterol
[2019-05-06] MEDS: HumaLOG SUB-Q SCH ×4 (00:09→18:45)
[2019-05-06 07:56] LABS: Hematocrit 48.3 % (35.5-45.6); Hemoglobin 16.2 gm/dl (11.8-15.2); Mean Corpuscular HGB Conc 34 % (32-34); Mean Corpuscular Volume 91 fl (84-94); Platelet Count 119 K/mm3 (140-440); Red Blood Count 5.31 M/mm3 (3.65-5.03); Red Cell Distribution Width 14.4 % (13.2-15.2)
[2019-05-06 08:11] LABS: BUN/Creatinine Ratio 12; Blood Urea Nitrogen 16 mg/dL (9-20); Calcium 8.9 mg/dL (8.4-10.2); Hemolysis Index 32
--- NOTE | 2019-05-06 08:54 | Progress Note ---
Assessment and Plan Assessment and plan: Patient is 63 -year-old man with a history of CVA with right-sided weakness, seizure, diabetes, A. fib was brought to the emergency room for evaluation. at bedside state that the granddaughter notified her that the patient is staring at the ceiling while she was talking to him. She went to check on him and found that he was twitching the left side and unresponsive. EMS was called, they gave him Versed for seizure. He was also found to be in SVT rate of 200, he was given adenosine 6 and 12, heart rate went from 180 to 200. In the emergency room he was shocked once with 50 J and intubated, his heart rate went to 150. He was shocked again at 200J, heart rate went to low 100s, started on a miodarone drip, admitted to ICU. He improved extubated 05/03/19 and transferred to Telemetry. cardiology following for SVT. Also evaluated by Neurology for breakthrough seizures. Currently on same dose keppra 1000mg bid. Acute respiratory failure Now extubated 05/03, was intubated Pulm following SVT On amiodarone, Lopressor cardiology following History of stroke CVA with residual right-sided weakness Breakthrough sizures in seizure disorder Consulted Neuro. evaluated by Dr. Mijares Diabetes mellitus type 2 [facility] and hs A. fib He was on Xarelto. Repeat INR 05/05/19 2.66 hold xarelto. To resume when INR<[address] Hope, cardiology on 05/05/19 Thrombocytopenia Monitor Full code status Disposition: PT consulted History Interval history: Extubated 05/03 No more seizures since admitted Hospitalist Physical - Physical exam Narrative exam: Gen: Not in acute distress, lying in bed, obese, HEENT: Normocephalic, atraumatic Neck: supple, no JVD Heart: S1 and S2 reg, no murmurs, rubs or gallop Lungs: Clear to auscultation, no rhonchi, no wheeze Abd: soft, non tender, non distended, normal BS, Ext: No edema, no clubbing, no cyanosis Neuro: Awake,alert, residual right sided weakness, Dysarthria from previous stroke - Constitutional Vitals: Temp Pulse Resp BP Pulse Ox 97.9 F 64 18 132/68 100 05/06/19 07:56 05/06/19 07:56 05/06/19 07:56 05/06/19 07:56 05/06/19 07:56 General appearance: Present: other (intubated, ) Results - Labs CBC & Chem 7: 05/06/19 06:52 05/06/19 06:52 Labs: Laboratory Last Values WBC 6.4 K/mm3 (4.5-11.0) 05/06/19 06:52 RBC 5.31 M/mm3 (3.65-5.03) H 05/06/19 06:52 Hgb 16.2 gm/dl (11.8-15.2) H 05/06/19 06:52 Hct 48.3 % (35.5-45.6) H 05/06/19 06:52 MCV 91 fl (84-94) 05/06/19 06:52 MCH 31 pg (28-32) 05/06/19 06:52 MCHC 34 % (32-34) 05/06/19 06:52 RDW 14.4 % (13.2-15.2) 05/06/19 06:52 Plt Count 119 K/mm3 (140-440) L 05/06/19 06:52 Lymph % (Auto) 5.3 % (13.4-35.0) L 05/02/19 02:44 [place] % (Auto) 5.1 % (0.0-7.3) 05/02/19 02:44 Eos % (Auto) 0.0 % (0.0-4.3) 05/02/19 02:44 Baso % (Auto) 0.3 % (0.0-1.8) 05/02/19 02:44 Lymph # 0.5 K/mm3 (1.2-5.4) L 05/02/19 02:44 [place] # 0.5 K/mm3 (0.0-0.8) 05/02/19 02:44 Eos # 0.0 K/mm3 (0.0-0.4) 05/02/19 02:44 Baso # 0.0 K/mm3 (0.0-0.1) 05/02/19 02:44 Seg Neutrophils % 89.3 % (40.0-70.0) H 05/02/19 02:44 Seg Neutrophils # 8.0 K/mm3 (1.8-7.7) H 05/02/19 02:44 PT 27.9 Sec. (12.2-14.9) H 05/05/19 10:20 INR 2.66 (0.87-1.13) H 05/05/19 10:20 APTT 28.6 Sec. (24.2-36.6) 05/01/19 23:09 POC ABG pH 7.419 (7.35-7.45) 05/03/19 12:24 ABG pH 7.437 pH Units (7.350-7.450) 05/03/19 Unknown POC ABG pCO2 32.3 (35-45) L 05/03/19 12:24 ABG pCO2 32.9 mm Hg 05/03/19 Unknown POC ABG pO2 100 (80-105) 05/03/19 12:24 ABG pO2 97.6 mm Hg (80.0-90.0) H 05/03/19 Unknown POC ABG HCO3 20.9 (22-26 mml/L) 05/03/19 12:24 ABG HCO3 21.7 mmol/L (20.0-26.0) 05/03/19 Unknown POC ABG Total CO2 22 (23-27mmol/L) 05/03/19 12:24 POC ABG O2 Sat 98 05/03/19 12:24 ABG O2 Saturation 97.6 % (95.0-99.0) 05/03/19 Unknown ABG O2 Content 18.2 (0.0-44) 05/03/19 Unknown POC ABG Base Excess -4 ((-2) - (+3)mmol/L) 05/03/19 12:24 ABG Base Excess -1.7 mmol/L (-2.0-3.0) 05/03/19 Unknown ABG Hemoglobin 13.5 gm/dl (14.0-18.0) L 05/03/19 Unknown ABG Carboxyhemoglobin 1.4 % (0.0-5.0) 05/03/19 Unknown ABG Methemoglobin 0.6 % (0.0-1.5) 05/03/19 Unknown 95.7 % (95.0-99.0) 05/03/19 Unknown 25 % 05/03/19 Unknown Sodium 143 mmol/L (137-145) 05/06/19 06:52 Potassium 4.0 mmol/L (3.6-5.0) 05/06/19 06:52 Chloride 106.6 mmol/L (98-107) 05/06/19 06:52 Carbon Dioxide 21 mmol/L (22-30) L 05/06/19 06:52 19 mmol/L 05/06/19 06:52 BUN 16 mg/dL (9-20) 05/06/19 06:52 1.3 mg/dL (0.8-1.5) 05/06/19 06:52 Estimated GFR > 60 ml/min 05/06/19 06:52 12 % 05/06/19 06:52 Glucose 100 mg/dL (75-100) 05/06/19 06:52 POC Glucose 82 (70-105) 05/06/19 05:39 Lactic Acid 1.70 mmol/L (0.7-2.0) 05/01/19 23:09 Calcium 8.9 mg/dL (8.4-10.2) 05/06/19 06:52 1.20 mg/dL (0.1-1.2) 05/03/19 05:29 AST 29 units/L (5-40) 05/03/19 05:29 ALT 20 units/L (7-56) 05/03/19 05:29 54 units/L (35-129) 05/03/19 05:29 138 units/L (55-170) 05/02/19 10:20 CK-MB (CK-2) 2.1 ng/mL (0.0-4.0) 05/02/19 10:20 CK-MB (CK-2) Rel Index 1.5 (0-4) 05/02/19 10:20 0.020 ng/mL (0.00-0.029) 05/03/19 10:48 NT-Pro-B Natriuret Pep 1146 pg/mL (0-900) H 05/01/19 23:10 5.8 g/dL (6.3-8.2) L 05/03/19 05:29 3.0 g/dL (3.9-5) L 05/03/19 05:29 1.1 % 05/03/19 05:29 Triglycerides 47 mg/dL (2-149) 05/02/19 10:20 Cholesterol 126 mg/dL (50-199) 05/02/19 10:20 76 mg/dL (50-130) 05/02/19 10:20 62 mg/dL (40-59) H 05/02/19 10:20 2.03 % 05/02/19 10:20 Yellow (Yellow) 05/02/19 Unknown Slightly-cloudy (Clear) 05/02/19 Unknown 5.0 (5.0-7.0) 05/02/19 Unknown Ur Specific [place] 1.027 (1.003-1.030) 05/02/19 Unknown 100 mg/dl mg/dL (Negative) 05/02/19 Unknown 150 mg/dL (Negative) 05/02/19 Unknown Tr mg/dL (Negative) 05/02/19 Unknown Neg (Negative) 05/02/19 Unknown Neg (Negative) 05/02/19 Unknown Neg (Negative) 05/02/19 Unknown < 2.0 mg/dL (<2.0) 05/02/19 Unknown Ur Leukocyte Esterase Neg (Negative) 05/02/19 Unknown 4.0 /HPF (0.0-6.0) 05/02/19 Unknown 2.0 /HPF (0.0-6.0) 05/02/19 Unknown U Epithel Cells (Auto) 1.0 /HPF (0-13.0) 05/02/19 Unknown Hyaline Casts 8 /LPF 05/02/19 Unknown Granular Casts 6 /LPF 05/02/19 Unknown 1+ /HPF 05/02/19 Unknown Presumptive negative 05/02/19 Unknown Presumptive negative 05/02/19 Unknown Ur Barbiturates Screen Presumptive negative 05/02/19 Unknown Ur Phencyclidine Scrn Presumptive negative 05/02/19 Unknown Ur Amphetamines Screen Presumptive negative 05/02/19 Unknown U Benzodiazepines Scrn Presumptive positive 05/02/19 Unknown Presumptive negative 05/02/19 Unknown U Marijuana (THC) Screen Presumptive negative 05/02/19 Unknown Disclamer 05/02/19 Unknown Active Medications - Current Medications Current Medications: Generic Name Dose Route Start Last Admin Trade Name Freq PRN Reason Stop Dose Admin Acetaminophen 650 mg 05/02/19 02:25 05/04/19 10:15 Tylenol PO 650 mg Q4H PRN Administration Pain MILD(1-3)/Fever >100.5/FARLEY Amiodarone HCl 200 mg 05/04/19 22:00 05/05/19 21:14 Cordarone PO 200 mg BID NEVIN Administration Lipase/Protease/Amylase 1 each 05/02/19 14:[address] 10,500 Unit FEEDTUBE PRN PRN For Clogged Feeding Tube Baclofen 10 mg 05/04/19 14:00 05/05/19 21:14 Lioresal PO 10 mg TID NEVIN Administration Dextrose 50 ml 05/02/19 03:04 D50w (25gm) Syringe IV PRN PRN Hypoglycemia Hydrophilic Ointment 1 applic 05/02/19 01:04 Vaseline Lip Therapy TP Q2HR PRN Dry Lips Insulin Human Lispro 0 unit 05/02/19 06:00 05/06/19 05:58 Humalog SUB-Q Not Given Q6HR [facility] Protocol Levetiracetam 1,000 mg 05/04/19 14:00 05/05/19 21:14 Keppra PO 1,000 mg BID NEVIN Administration Lorazepam 1 mg 05/02/19 09:34 05/04/19 06:16 Ativan IV 1 mg Q4H PRN Administration Agitation Metoprolol Tartrate 25 mg 05/02/19 22:00 05/05/19 21:15 Lopressor PO 25 mg BID NEVIN Administration Multi-Ingred Cream/Lotion/Oil/Oint 1 applic 05/02/19 01:04 Artificial Tears Ophth Oint OU Q4HR PRN Dry Eye(s) Ondansetron HCl 4 mg 05/02/19 02:25 Zofran IV Q8H PRN Nausea And Vomiting Potassium Chloride 20 meq 05/04/19 14:00 05/05/19 09:55 K-Dur PO 20 meq QDAY NEVIN Administration Simple Syrup 15 ml 05/02/19 14:30 Simple Syrup FEEDTUBE PRN PRN Hypoglycemia Simple Syrup 30 ml 05/02/19 14:30 Simple Syrup FEEDTUBE PRN PRN Hypoglycemia Sodium Bicarbonate 325 mg 05/02/19 14:30 Sodium Bicarbonate FEEDTUBE PRN PRN For Clogged Feeding Tube Sodium Chloride 10 ml 05/02/19 10:00 05/05/19 21:15 Sodium Chloride Flush Syringe 10 Ml IV 10 ml BID NEVIN Administration Sodium Chloride 10 ml 05/02/19 02:25 Sodium Chloride Flush Syringe 10 Ml IV PRN PRN LINE FLUSH Nutrition/Malnutrition Assess - Dietary Evaluation Nutrition/Malnutrition Findings: Nutrition Notes Start: 05/02/19 14:09 Freq: Status: Active Protocol: Document 05/03/19 11:55 LM (Rec: 05/03/19 12:04 LM [id number]) Nutrition Notes Initial or Follow up Reassessment Current Diagnosis Diabetes,Stroke Other Pertinent Diagnosis seizures, RLE and LLE wounds Current Diet Vital High Protein at 65 ml/hr Labs/Tests BG 115 Na 136 Pertinent Medications Reviewed Height 6 ft Weight 115 kg [place] Body Weight (kg) 80.90 BMI 34.4 Subjective/Other Information Vital High Protein running at 35 ml/hr at time of visit. Pt on vent. #2 Nutrition Diagnosis Increased nutrient needs ( specify in comment below) Comments: Protein Etiology Wound healing As Evidenced by Signs and Symptoms LLE and RLE wounds Diagnosis Progress(for reassessment Continues documentation) #1 Diagnosis Progress(for reassessment Continues documentation) Is patient on ventilator? Yes Is Patient Ambulatory and/or Out of Bed No REE-([place]-confined to bed) [phone] Additional Notes Energy needs 65-75% of energy needs: 4132-4453 kcal Protein: 162g (2g/kg IBW 80.9 kg) 1 ml/kcal Nutrition Intervention Change Diet Order: TF Nutrition Support: Vital High Protein at 65 ml/hr Flush 200 ml q4hr Kcal 1,600 Protein (gm) 136 Fluid (mL) 1,304 Goal #1 TF tolerance Goal #2 Meet at least 75% of energy and protein needs Anticipated Discharge Needs: Unable to determine at this time Follow-Up By: 05/06/19 Additional Comments F/U for TF tolerance/rate
[2019-05-06] MEDS: LIORESAL PO SCH ×3 (09:00→22:44)
[2019-05-06] MEDS: CORDARONE PO SCH ×2 (10:38→22:39)
[2019-05-06] MEDS: K-DUR PO SCH (10:38)
[2019-05-06] MEDS: SODIUM CHLORIDE FLUSH SYRINGE 10 ML IV SCH ×2 (10:39→22:41)
[2019-05-06] MEDS: LOPRESSOR PO SCH ×2 (10:39→22:39)
[2019-05-06] MEDS: KEPPRA PO SCH ×2 (10:39→22:39)
[2019-05-06] MEDS ORDERED: MORPHINE IV PRN (11:01)
--- NOTE | 2019-05-06 11:25 | Progress Note ---
Assessment and Plan Patient's INR is notably elevated, so will not initiate anticoagulation at this time. Recommend hematology consult for further evaluation and recommendations. Continue other cardiac management. The patient has been seen in conjunction with Dr. Kahlil Hope, who agrees with assessment and plan. - Patient Problems (1) Atrial fibrillation with RVR Current Visit: Yes Status: Acute (2) Acute respiratory failure Current Visit: Yes Status: Acute (3) Altered mental status Current Visit: Yes Status: Acute (4) Diabetes Current Visit: Yes Status: Acute (5) HTN (hypertension) Current Visit: Yes Status: Acute (6) Seizure disorder Current Visit: Yes Status: Acute (7) History of CVA (cerebrovascular accident) Current Visit: Yes Status: Chronic (8) Coagulopathy Current Visit: Yes Status: Acute (9) Normal coronary arteries Current Visit: Yes Status: Chronic (10) Status post craniectomy Current Visit: Yes Status: Chronic Subjective Date of service: 05/06/19 Principal diagnosis: AFib Interval history: Patient is lying in bed in [facility]. He converses only minimally, but denies complaints. Last INR noted to be 2.66. Telemetry reviewed - afib with RVR noted this AM, but he is now controlled. Objective Last Vital Signs Temp 97.9 F 05/06/19 07:56 Pulse 62 05/06/19 10:39 Resp 18 05/06/19 07:56 BP 105/68 05/06/19 10:39 Pulse Ox 100 05/06/19 07:56 - Physical Examination General: No Apparent Distress HEENT: Positive: PERRL Neck: Positive: neck supple Cardiac: Positive: irregularly irregular Lungs: Positive: Normal Exam Neuro: Positive: Grossly Intact, Other (verbalizes minimally ) Abdomen: Positive: Unremarkable /Rectal: Other (deferred) Skin: Positive: Clear, Other (left calf open wound ). Negative: Rash, Wound Musculoskeletal: No Pain Extremities: Present: normal. Absent: edema - Labs and Meds CBC 05/06/19 Range/Units 06:52 WBC 6.4 (4.5-11.0) K/mm3 RBC 5.31 H (3.65-5.03) M/mm3 Hgb 16.2 H (11.8-15.2) gm/dl Hct 48.3 H (35.5-45.6) % Plt Count 119 L (140-440) K/mm3 Comprehensive Metabolic Panel 05/06/19 Range/Units 06:52 Sodium 143 (137-145) mmol/L Potassium 4.0 (3.6-5.0) mmol/L Chloride 106.6 (98-107) mmol/L Carbon Dioxide 21 L (22-30) mmol/L BUN 16 (9-20) mg/dL Creatinine 1.3 (0.8-1.5) mg/dL Glucose 100 (75-100) mg/dL Calcium 8.9 (8.4-10.2) mg/dL - Imaging and Cardiology EKG: report reviewed, image reviewed Echo: pending, report reviewed (05/02/19: EF 20-25%, LV filling pattern restrictive, trace MR, trace TR) Cardiac cath: report reviewed (2003 showed normal coronaries. ) - Telemetry EKG Rhythm: Atrial Fibrillation
--- NOTE | 2019-05-06 12:40 | Progress Note ---
Subjective Date of service: 05/06/19 Principal diagnosis: AFib Interval history: patuient seen and further assessed currently more alert and seizures free plan the CT Objective - Vital Sign Vital Signs - 12hr 05/06/19 05/06/19 05/06/19 04:04 04:40 07:56 Temperature 98.4 F 97.9 F Pulse Rate 74 62 64 Respiratory 18 18 Rate Blood Pressure 126/46 132/68 O2 Sat by Pulse 95 100 Oximetry 05/06/19 05/06/19 10:39 11:22 Temperature 97.9 F Pulse Rate 62 66 Respiratory 18 Rate Blood Pressure 105/68 110/67 O2 Sat by Pulse 97 Oximetry - Laboratory Findings CBC and BMP: 05/06/19 06:52 05/06/19 06:52 Abnormal Lab Findings: Abnormal Labs 05/01/19 05/01/19 05/01/19 01:06 23:09 23:10 RBC Hgb Hct RDW Plt Count Lymph % (Auto) Lymph # Seg Neutrophils % Seg Neutrophils # PT 22.6 H INR 2.04 H ABG pH 7.275 L POC ABG pCO2 ABG pO2 267.9 H ABG HCO3 19.4 L ABG O2 Saturation 99.4 H ABG Base Excess -7.2 L ABG Hemoglobin Sodium Carbon Dioxide BUN Glucose POC Glucose Troponin T NT-Pro-B Natriuret Pep 1146 H Total Protein Albumin HDL Cholesterol 05/02/19 05/02/19 05/02/19 01:32 02:44 02:44 RBC 5.36 H Hgb 16.2 H 15.3 H Hct 49.9 H 45.9 H RDW 15.4 H Plt Count 125 L 122 L Lymph % (Auto) 5.7 L 5.3 L Lymph # 0.5 L 0.5 L Seg Neutrophils % 90.0 H 89.3 H Seg Neutrophils # 8.4 H 8.0 H PT INR ABG pH POC ABG pCO2 ABG pO2 ABG HCO3 ABG O2 Saturation ABG Base Excess ABG Hemoglobin Sodium Carbon Dioxide BUN 24 H Glucose 263 H POC Glucose Troponin T NT-Pro-B Natriuret Pep Total Protein Albumin HDL Cholesterol 05/02/19 05/02/19 05/02/19 06:11 10:20 12:47 RBC Hgb Hct RDW Plt Count Lymph % (Auto) Lymph # Seg Neutrophils % Seg Neutrophils # PT INR ABG pH POC ABG pCO2 ABG pO2 ABG HCO3 ABG O2 Saturation ABG Base Excess ABG Hemoglobin Sodium Carbon Dioxide BUN Glucose POC Glucose 215 H 158 H Troponin T 0.031 H D NT-Pro-B Natriuret Pep Total Protein Albumin HDL Cholesterol 62 H 05/02/19 05/02/19 05/02/19 18:31 23:34 Unknown RBC Hgb Hct RDW Plt Count Lymph % (Auto) Lymph # Seg Neutrophils % Seg Neutrophils # PT INR ABG pH POC ABG pCO2 ABG pO2 212.5 H ABG HCO3 19.2 L ABG O2 Saturation 99.3 H ABG Base Excess -3.9 L ABG Hemoglobin Sodium Carbon Dioxide BUN Glucose POC Glucose 174 H 112 H Troponin T NT-Pro-B Natriuret Pep Total Protein Albumin HDL Cholesterol 05/03/19 05/03/19 05/03/19 04:35 05:29 05:29 RBC Hgb Hct RDW Plt Count Lymph % (Auto) Lymph # Seg Neutrophils % Seg Neutrophils # PT 36.7 H INR 3.77 H ABG pH 7.472 H POC ABG pCO2 ABG pO2 206.8 H ABG HCO3 ABG O2 Saturation 99.3 H ABG Base Excess ABG Hemoglobin Sodium 136 L Carbon Dioxide BUN Glucose 115 H POC Glucose Troponin T NT-Pro-B Natriuret Pep Total Protein 5.8 L Albumin 3.0 L HDL Cholesterol 05/03/19 05/03/19 05/03/19 05:29 05:45 12:18 RBC Hgb Hct RDW Plt Count 87 L Lymph % (Auto) Lymph # Seg Neutrophils % Seg Neutrophils # PT INR ABG pH POC ABG pCO2 ABG pO2 ABG HCO3 ABG O2 Saturation ABG Base Excess ABG Hemoglobin Sodium Carbon Dioxide BUN Glucose POC Glucose 113 H 116 H Troponin T NT-Pro-B Natriuret Pep Total Protein Albumin HDL Cholesterol 05/03/19 05/03/19 05/04/19 12:24 Unknown 03:04 RBC Hgb Hct RDW Plt Count 85 L Lymph % (Auto) Lymph # Seg Neutrophils % Seg Neutrophils # PT INR ABG pH POC ABG pCO2 32.3 L ABG pO2 97.6 H ABG HCO3 ABG O2 Saturation ABG Base Excess ABG Hemoglobin 13.5 L Sodium Carbon Dioxide BUN Glucose POC Glucose Troponin T NT-Pro-B Natriuret Pep Total Protein Albumin HDL Cholesterol 05/04/19 05/05/19 05/05/19 17:21 07:00 10:20 RBC 5.06 H Hgb 15.7 H Hct 46.2 H RDW Plt Count 97 L Lymph % (Auto) Lymph # Seg Neutrophils % Seg Neutrophils # PT 27.9 H INR 2.66 H ABG pH POC ABG pCO2 ABG pO2 ABG HCO3 ABG O2 Saturation ABG Base Excess ABG Hemoglobin Sodium Carbon Dioxide BUN Glucose POC Glucose 121 H Troponin T NT-Pro-B Natriuret Pep Total Protein Albumin HDL Cholesterol 05/05/19 05/06/19 05/06/19 13:44 06:52 06:52 RBC 5.31 H Hgb 16.2 H Hct 48.3 H RDW Plt Count 119 L Lymph % (Auto) Lymph # Seg Neutrophils % Seg Neutrophils # PT INR ABG pH POC ABG pCO2 ABG pO2 ABG HCO3 ABG O2 Saturation ABG Base Excess ABG Hemoglobin Sodium Carbon Dioxide 21 L BUN Glucose POC Glucose 176 H Troponin T NT-Pro-B Natriuret Pep Total Protein Albumin HDL Cholesterol
--- NOTE | 2019-05-06 13:09 | XRay Report ---
ABDOMEN ONE VIEW INDICATION / CLINICAL INFORMATION: Abdominal pain. COMPARISON: 05/02/2019 FINDINGS: Once again marked gaseous distention of what is believed to be the sigmoid colon is seen. This most l ikely represents a sigmoid volvulus. No significant interval change from the prior examination other than removal of the nasogastric tube Signer Name: Kole Akers MD FACR Signed: 05/06/2019 1:05 PM Workstation Name: [id number]
--- NOTE | 2019-05-06 18:51 | Cat Scan Report ---
CT head/brain wo con INDICATION: Altered mental status.. TECHNIQUE: Routine CT head without contrast. All CT scans at this location are performed using CT dos e reduction for ALARA by means of automated exposure control. COMPARISON: Head CT on 05/02/2019. FINDINGS: BRAIN / INTRACRANIAL CONTENTS: No acute hemorrhage, mass effect, midline shift, or hydrocephalus. No appreciable acute large territorial or lacunar infarct. Stable chronic encephalomalacia in the left M CA territory with ex vacuo dilation of the left lateral ventricle. Stable postsurgical changes from p revious left pterional craniotomy. ORBITS: No significant abnormality of visualized orbits. SINUSES / MASTOIDS: No significant abnormality of visualized sinuses and mastoid air cells. ADDITIONAL FINDINGS: None. IMPRESSION: 1. No acute intracranial abnormality. No adverse change from the prior exam. Signer Name: Rommel Verduzco MD Signed: 05/06/2019 6:47 PM Workstation Name: [id number]
--- NOTE | 2019-05-06 18:55 | Cat Scan Report ---
CT ABDOMEN AND PELVIS WITH IV CONTRAST INDICATION: Abdominal pain. COMPARISON: None available. TECHNIQUE: Axial CT images were obtained through the abdomen and pelvis after 100 mL IV contrast. All CT scans a t this location are performed using CT dose reduction for ALARA by means of automated exposure contro l. FINDINGS -- ABDOMEN: Lung Bases: Cardiomegaly. Liver: Heterogeneous and partially fatty.. Gallbladder: Removed. Bile Ducts: Normal. Pancreas: Normal. Spleen: Normal. Adrenals: Normal. Right Kidney and Proximal Ureter: Nonobstructive right-sided nephrolithiasis.. Left Kidney and Proximal Ureter: Normal. Stomach and Bowel: Normal. Lymph Nodes: No significant adenopathy. Aorta: No significant abnormality. IVC: Normal. Additional Findings: None. FINDINGS -- PELVIS: Urinary Bladder and Distal Ureters: Focal 13 x 6 mm stone at the right ureterovesical junction which does not appear to be causing significant right ureteral obstruction.. Reproductive Organs: No acute abnormality. Appendix: Not well identified. Bowel: Significant gaseous distention of the large bowel. No signific ant colonic wall thickening is identified. Free Fluid: None. Lymph Nodes: No significant adenopathy. Additional Findings: None. Skeletal System: No acute abnormality. IMPRESSION: 1. Severe gaseous distention of the colon. This could be seen with early toxic megacolon/severe adyna amelia ileus of the colon. Although not definitively identified at this time, the patient is at risk for sigmoid volvulus. Close attention on follow-up recommended. 2. 13 x 6 mm stone at the right ureterovesical junction which does not appear to be causing significa nt right-sided obstruction. Signer Name: Torin Cook MD Signed: 05/06/2019 6:51 PM Workstation Name: [facility]
[2019-05-06 20:12] LABS: INR 1.7 (0.87-1.13)
--- NOTE | 2019-05-06 20:14 | Consultation ---
History of Present Illness Consult date: 05/06/19 Reason for consult: abdominal pain Chief complaint: colonic distension - History of present illness History of present illness: 63 year old male with a complicated medical hx who was admitted about 5 days for altered mental status, and SVT who was cardioverted in the ED, and had subsequent respiratory failure that required short term intubation. He has had colonic distension on abdominal x-ray for a few days, but today was complaining of abdominal pain and one episode of vomiting. There is a concern for colonic volvulous. He had a subsequent CT scan that showed generalized significant gaseous distension of the the colon with no signs of colonic wall thickening or mention of obvious volvulous. Upon exam he denies abdominal pain, or vomiting. He also denies having a bowel movement, although his nurse said that he had a massive bowel movement last night and this morning, and that his abdomen is softer and less distended that earlier yesterday. Past History Past Medical History: atrial fib, diabetes, seizures, stroke Past Surgical History: Other (crainotomy at [place] about 2-3 years ago) Social history: , lives with family Family history: no significant family history Medications and Allergies Allergies Allergy/AdvReac Type Severity Reaction Status Date / Time No Known Allergies Allergy Unverified 05/01/19 22:41 Home Medications Medication Instructions Recorded Confirmed Last Taken Type Baclofen [Lioresal] 10 mg PO TID 05/02/19 05/02/19 Unknown History Potassium Chloride [K-Dur] 20 meq PO QDAY 05/02/19 05/02/19 Unknown History Rivaroxaban [Xarelto] 20 mg PO QDAY 05/02/19 05/02/19 Unknown History levETIRAcetam [Keppra TAB] 1,000 mg PO BID 05/02/19 05/02/19 Unknown History Active Meds: Active Medications Acetaminophen (Tylenol) 650 mg PO Q4H PRN PRN Reason: Pain MILD(1-3)/Fever >100.5/FARLEY Last Admin: 05/04/19 10:15 Dose: 650 mg Documented by: Amiodarone HCl (Cordarone) 200 mg PO BID NEVIN Last Admin: 05/06/19 10:38 Dose: 200 mg Documented by: Lipase/Protease/Amylase (Hussein Castellanos 10,500 Unit) 1 each FEEDTUBE PRN PRN PRN Reason: For Clogged Feeding Tube Baclofen (Lioresal) 10 mg PO TID [facility] Last Admin: 05/06/19 14:20 Dose: 10 mg Documented by: Dextrose (D50w (25gm) Syringe) 50 ml IV PRN PRN PRN Reason: Hypoglycemia Hydrophilic Ointment (Vaseline Lip Therapy) 1 applic TP Q2HR PRN PRN Reason: Dry Lips Insulin Human Lispro (Humalog) 0 unit SUB-Q Q6HR [facility]; Protocol Last Admin: 05/06/19 18:45 Dose: Not Given Documented by: Levetiracetam (Keppra) 1,000 mg PO BID [facility] Last Admin: 05/06/19 10:39 Dose: 1,000 mg Documented by: Lorazepam (Ativan) 1 mg IV Q4H PRN PRN Reason: Agitation Last Admin: 05/04/19 06:16 Dose: 1 mg Documented by: Metoprolol Tartrate (Lopressor) 25 mg PO BID [facility] Last Admin: 05/06/19 10:39 Dose: Not Given Documented by: Morphine Sulfate (Morphine) 2 mg IV Q4H PRN PRN Reason: Pain, Moderate (4-6) Multi-Ingred Cream/Lotion/Oil/Oint (Artificial Tears Ophth Oint) 1 applic OU Q4HR PRN PRN Reason: Dry Eye(s) Ondansetron HCl (Zofran) 4 mg IV Q8H PRN PRN Reason: Nausea And Vomiting Potassium Chloride (K-Dur) 20 meq PO QDAY [facility] Last Admin: 05/06/19 10:38 Dose: 20 meq Documented by: Simple Syrup (Simple Syrup) 15 ml FEEDTUBE PRN PRN PRN Reason: Hypoglycemia Simple Syrup (Simple Syrup) 30 ml FEEDTUBE PRN PRN PRN Reason: Hypoglycemia Sodium Bicarbonate (Sodium Bicarbonate) 325 mg FEEDTUBE PRN PRN PRN Reason: For Clogged Feeding Tube Sodium Chloride (Sodium Chloride Flush Syringe 10 Ml) 10 ml IV BID [facility] Last Admin: 05/06/19 10:39 Dose: 10 ml Documented by: Sodium Chloride (Sodium Chloride Flush Syringe 10 Ml) 10 ml IV PRN PRN PRN Reason: LINE FLUSH Review of Systems - Respiratory no shortness of breath - Gastrointestinal no abdominal pain Exam Vital Signs Pulse 143 H 05/01/19 22:26 - General physical appearance Positive: well developed, well nourished, no distress - Respiratory Positive: normal expansion, normal respiratory effort - Extremities Extremities: no ischemia - Abdomen Abdomen: Present: soft, distended. Absent: tender, rebound, guarding, rigid - Neurologic Neurologic: other (significant right sided weakness, speech deficit residual from stroke) Results - Labs 05/06/19 06:52 05/06/19 06:52 Abnormal lab results 05/06/19 05/06/19 05/06/19 Range/Units 06:52 06:52 12:44 RBC 5.31 H (3.65-5.03) M/mm3 Hgb 16.2 H (11.8-15.2) gm/dl Hct 48.3 H (35.5-45.6) % Plt Count 119 L (140-440) K/mm3 Carbon Dioxide 21 L (22-30) mmol/L POC Glucose 119 H (70-105) 05/06/19 Range/Units 16:02 RBC (3.65-5.03) M/mm3 Hgb (11.8-15.2) gm/dl Hct (35.5-45.6) % Plt Count (140-440) K/mm3 Carbon Dioxide (22-30) mmol/L POC Glucose 165 H (70-105) Diabetes panel 05/06/19 Range/Units 06:52 Sodium 143 (137-145) mmol/L Potassium 4.0 (3.6-5.0) mmol/L Chloride 106.6 (98-107) mmol/L Carbon Dioxide 21 L (22-30) mmol/L BUN 16 (9-20) mg/dL Creatinine 1.3 (0.8-1.5) mg/dL Glucose 100 (75-100) mg/dL Calcium 8.9 (8.4-10.2) mg/dL Calcium panel 05/06/19 Range/Units 06:52 Calcium 8.9 (8.4-10.2) mg/dL Pituitary panel 05/06/19 Range/Units 06:52 Sodium 143 (137-145) mmol/L Potassium 4.0 (3.6-5.0) mmol/L Chloride 106.6 (98-107) mmol/L Carbon Dioxide 21 L (22-30) mmol/L BUN 16 (9-20) mg/dL Creatinine 1.3 (0.8-1.5) mg/dL Glucose 100 (75-100) mg/dL Calcium 8.9 (8.4-10.2) mg/dL Adrenal panel 05/06/19 Range/Units 06:52 Sodium 143 (137-145) mmol/L Potassium 4.0 (3.6-5.0) mmol/L Chloride 106.6 (98-107) mmol/L Carbon Dioxide 21 L (22-30) mmol/L BUN 16 (9-20) mg/dL Creatinine 1.3 (0.8-1.5) mg/dL Glucose 100 (75-100) mg/dL Calcium 8.9 (8.4-10.2) mg/dL - Imaging CT scan - abdomen: report reviewed, image reviewed CT scan - pelvis: report reviewed, image reviewed Assessment and Plan Massive colonic distension. May be chronic, unlikely to be toxic jocelyn-colon as he has no other symptoms such as tachycardia, fever, leukocytosis, abdominal pain (peritonitis). No clear volvulous on CT and air is distributed throughout entire colon. Will review with in house radiologist tomorrow. No surgical intervention needed a this time. Reviewed case with GI. Since no signs of peritonitis, and he has had recent bowel movements will continue to observe him. INR 2.66 will recheck. May benefit from colonic decompress with GI if no improvement, would like INR to be below 2. Will keep NPO for now, if continues to improve and no intervention is planned can resume clear liquids and advance as tolerated.
--- NOTE | 2019-05-06 20:27 | Gastroenterology Consultation ---
History of Present Illness - Reason for Consult Consult date: 05/06/19 dilated colon Requesting physician: POWER ROMERO - History of Present Illness This is a 63 yo male with pmh of Afib, CVA with residual weakness, DM, and seizure admitted on 05/02/2019 for AMS and found to be in SVR. Initially intubated after receiving cardiac shock for SVR and since extubated. Patient noted to have distended abdomen. Xray from 05/02/2019 and 05/06/2019 both showed largely dilated colon, question of sigmoid volvulus. General surgery was consulted for dilated colon and GI consulted for possible decompression for sigmoid volvulus. History limited from the patient. He denies any abdominal pain, nausea/vomiting. Per nursing, he had a large BM yesterday and today. Medication list reviewed Past History Past Medical History: atrial fib, diabetes, seizures, stroke Past Surgical History: Other (crainotomy at [place] about 2-3 years ago) Social history: , lives with family Family history: no significant family history Medications and Allergies Allergies Allergy/AdvReac Type Severity Reaction Status Date / Time No Known Allergies Allergy Unverified 05/01/19 22:41 Home Medications Medication Instructions Recorded Confirmed Last Taken Type Baclofen [Lioresal] 10 mg PO TID 05/02/19 05/02/19 Unknown History Potassium Chloride [K-Dur] 20 meq PO QDAY 05/02/19 05/02/19 Unknown History Rivaroxaban [Xarelto] 20 mg PO QDAY 05/02/19 05/02/19 Unknown History levETIRAcetam [Keppra TAB] 1,000 mg PO BID 05/02/19 05/02/19 Unknown History Active Meds: Active Medications Acetaminophen (Tylenol) 650 mg PO Q4H PRN PRN Reason: Pain MILD(1-3)/Fever >100.5/FARLEY Last Admin: 05/04/19 10:15 Dose: 650 mg Documented by: Amiodarone HCl (Cordarone) 200 mg PO BID [facility] Last Admin: 05/06/19 10:38 Dose: 200 mg Documented by: Lipase/Protease/Amylase (Hussein Castellanos 10,500 Unit) 1 each FEEDTUBE PRN PRN PRN Reason: For Clogged Feeding Tube Baclofen (Lioresal) 10 mg PO TID [facility] Last Admin: 05/06/19 14:20 Dose: 10 mg Documented by: Dextrose (D50w (25gm) Syringe) 50 ml IV PRN PRN PRN Reason: Hypoglycemia Hydrophilic Ointment (Vaseline Lip Therapy) 1 applic TP Q2HR PRN PRN Reason: Dry Lips Insulin Human Lispro (Humalog) 0 unit SUB-Q Q6HR [facility]; Protocol Last Admin: 05/06/19 18:45 Dose: Not Given Documented by: Levetiracetam (Keppra) 1,000 mg PO BID [facility] Last Admin: 05/06/19 10:39 Dose: 1,000 mg Documented by: Lorazepam (Ativan) 1 mg IV Q4H PRN PRN Reason: Agitation Last Admin: 05/04/19 06:16 Dose: 1 mg Documented by: Metoprolol Tartrate (Lopressor) 25 mg PO BID [facility] Last Admin: 05/06/19 10:39 Dose: Not Given Documented by: Morphine Sulfate (Morphine) 2 mg IV Q4H PRN PRN Reason: Pain, Moderate (4-6) Multi-Ingred Cream/Lotion/Oil/Oint (Artificial Tears Ophth Oint) 1 applic OU Q4HR PRN PRN Reason: Dry Eye(s) Ondansetron HCl (Zofran) 4 mg IV Q8H PRN PRN Reason: Nausea And Vomiting Potassium Chloride (K-Dur) 20 meq PO QDAY [facility] Last Admin: 05/06/19 10:38 Dose: 20 meq Documented by: Simple Syrup (Simple Syrup) 15 ml FEEDTUBE PRN PRN PRN Reason: Hypoglycemia Simple Syrup (Simple Syrup) 30 ml FEEDTUBE PRN PRN PRN Reason: Hypoglycemia Sodium Bicarbonate (Sodium Bicarbonate) 325 mg FEEDTUBE PRN PRN PRN Reason: For Clogged Feeding Tube Sodium Chloride (Sodium Chloride Flush Syringe 10 Ml) 10 ml IV BID [facility] Last Admin: 05/06/19 10:39 Dose: 10 ml Documented by: Sodium Chloride (Sodium Chloride Flush Syringe 10 Ml) 10 ml IV PRN PRN PRN Reason: LINE FLUSH Review of Systems - Review of Systems ROS unobtainable: due to mental status Exam - Constitutional Vital Signs: Temp Pulse Resp BP Pulse Ox 98.0 F 52 L 18 119/67 97 05/06/19 19:14 05/06/19 19:14 05/06/19 19:14 05/06/19 19:14 05/06/19 19:14 General appearance: no acute distress - EENT Eyes: EOM intact ENT: hearing intact - Neck Neck: supple - Respiratory Respiratory effort: normal Respiratory: bilateral: CTA - Cardiovascular Rhythm: regular - Gastrointestinal General gastrointestinal: Present: soft, non-tender, distended, hypoactive bowel sounds - Integumentary Integumentary: Present: clear, warm - Labs CBC & Chem 7: 05/06/19 06:52 05/06/19 06:52 Lab Results: Laboratory Results - last 24 hr 05/05/19 05/06/19 05/06/19 23:58 05:39 06:52 WBC 6.4 RBC 5.31 H Hgb 16.2 H Hct 48.3 H MCV 91 MCH 31 MCHC 34 RDW 14.4 Plt Count 119 L PT INR Sodium Potassium Chloride Carbon Dioxide Anion Gap BUN Creatinine Estimated GFR BUN/Creatinine Ratio Glucose POC Glucose 100 82 Calcium 05/06/19 05/06/19 05/06/19 06:52 12:44 16:02 WBC RBC Hgb Hct MCV MCH MCHC RDW Plt Count PT INR Sodium 143 Potassium 4.0 Chloride 106.6 Carbon Dioxide 21 L Anion Gap 19 BUN 16 Creatinine 1.3 Estimated GFR > 60 BUN/Creatinine Ratio 12 Glucose 100 POC Glucose 119 H 165 H Calcium 8.9 05/06/19 19:41 WBC RBC Hgb Hct MCV MCH MCHC RDW Plt Count PT 19.6 H INR 1.70 H Sodium Potassium Chloride Carbon Dioxide Anion Gap BUN Creatinine Estimated GFR BUN/Creatinine Ratio Glucose POC Glucose Calcium - Imaging X-ray: report reviewed CT Scan: report reviewed Assessment and Plan This is a 63 yo male with pmh of Afib, CVA with residual weakness, DM, and seizure admitted on 05/02/2019 for AMS and found to be in SVR. # Dilated colon - question of sigmoid volvulus vs pseudocolonic obstruction. - unclear if this is chronic vs acute. At least xray from 05/02/2019 showed dilated large bowel as well. - patient clinically appears nontoxic and abdomen distended but soft and nontender. - lactic acid pending. - CT a/p with dilated colon but no clear signs of sigmoid volvulus. No bowel wall thickening. - per nursing, patient had large BM yesterday and today. Rec - conservative management. - will reassess tomorrow if there is need for flex sig for decompression. If patient continues to pass gas and has BM, may not need the procedure. - monitor electrolytes and replete as needed. - avoid narcotics. - may need follow imaging tomorrow. - will follow.
[2019-05-07] MEDS: HumaLOG SUB-Q SCH ×4 (00:05→18:00)
[2019-05-07] MEDS: LIORESAL PO SCH ×3 (09:00→22:39)
[2019-05-07] MEDS: KEPPRA PO SCH ×2 (09:46→22:38)
[2019-05-07] MEDS: CORDARONE PO SCH (09:46)
[2019-05-07] MEDS: K-DUR PO SCH (09:46)
[2019-05-07] MEDS: LOPRESSOR PO SCH ×2 (09:47→22:39)
[2019-05-07] MEDS: SODIUM CHLORIDE FLUSH SYRINGE 10 ML IV SCH ×2 (09:48→22:40)
--- NOTE | 2019-05-07 10:34 | Progress Note ---
Assessment and Plan Pt initially had parox AFib with RVR and now in AFib with SVR. Will further reduce PO amio dosage to 200mg daily and monitor on telemetry. Cont lopressor with hold parameters. Pt was taking Xarelto for systemic AC in regards to parox afib at home. His INR was 2.04 on admission, then increased to 3.77, now 1.70 this AM and LFTs WNL. GI w/u currently in progress for dilated colon. Pt for possible endoscopy. Recommend resuming systemic AC if okay per GI and if no contraindication. The patient has been seen in conjunction with Dr. English who agrees with the assessment and plan of care. - Patient Problems (1) Paroxysmal atrial fibrillation Current Visit: Yes Status: Chronic (2) Seizure disorder Current Visit: Yes Status: Acute (3) Altered mental status Current Visit: Yes Status: Acute (4) Acute respiratory failure Current Visit: Yes Status: Acute (5) Status post craniectomy Current Visit: Yes Status: Chronic (6) HTN (hypertension) Current Visit: Yes Status: Acute (7) Diabetes Current Visit: Yes Status: Acute (8) History of cardiomyopathy Current Visit: Yes Status: Chronic (9) Normal coronary arteries Current Visit: Yes Status: Chronic (10) History of intracranial hemorrhage Current Visit: Yes Status: Chronic (11) Coagulopathy Current Visit: Yes Status: Acute Subjective Date of service: 05/07/19 Principal diagnosis: AFib Interval history: pt resting in bed, appears alert, responding appropriately, no apparent distress. in AFib on telemetry with HR 50s, HR low of 44bpm overnight. Objective Last Vital Signs Temp 98.0 F 05/07/19 04:09 Pulse 59 L 05/07/19 09:47 Resp 14 05/07/19 08:32 BP 124/64 05/07/19 09:47 Pulse Ox 97 05/07/19 08:32 - Physical Examination General: No Apparent Distress HEENT: Positive: PERRL Neck: Positive: neck supple Cardiac: Positive: irregularly irregular, S1/S2 Lungs: Positive: Decreased Breath Sounds Neuro: Positive: Grossly Intact, Other (aphasia) Abdomen: Positive: Unremarkable /Rectal: Other (deferred) Skin: Positive: Clear, Other (left calf open wound ). Negative: Rash, Wound Musculoskeletal: No Pain Extremities: Present: normal. Absent: edema - Labs and Meds Coagulation 05/06/19 Range/Units 19:41 PT 19.6 H (12.2-14.9) Sec. INR 1.70 H (0.87-1.13) - Imaging and Cardiology EKG: report reviewed, image reviewed Echo: pending, report reviewed (05/02/19: EF 20-25%, LV filling pattern restrictive, trace MR, trace TR) Cardiac cath: report reviewed (2003 showed normal coronaries. )
--- NOTE | 2019-05-07 10:54 | Progress Note ---
Assessment and Plan Assessment and plan: Acute respiratory failure Now extubated 05/03, was intubated Pulm following Paroxysmal atrial fibrillation On amiodarone, Lopressor per cardiology recommendations cardiology following Dilated colon question of sigmoid volvulus vs pseudocolonic obstruction. CT A/P with dilated colon but no clear signs of sigmoid volvulus. No bowel wall thickening. Continue conservative management. ? Endoscopy for decompression per GI Follow-up repeat imaging. 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 evaluated by Dr. Mijares Diabetes mellitus type 2 [facility] and A. fib He was on Xarelto. Thrombocytopenia Monitor Full code status Disposition: PT consulted History Interval history: Patient is 63 -year-old man with a history of CVA with right-sided weakness, seizure, diabetes, A. fib was brought to the emergency room for evaluation. at bedside state that the granddaughter notified her that the patient is staring at the ceiling while she was talking to him. She went to check on him and found that he was twitching the left side and unresponsive. EMS was called, they gave him Versed for seizure. He was also found to be in SVT rate of 200, he was given adenosine 6 and 12, heart rate went from 180 to 200. In the emergency room he was shocked once with 50 J and intubated, his heart rate went to 150. He was shocked again at 200J, heart rate went to low 100s, started on amiodarone drip, admitted to ICU. He improved extubated 05/03/19 and transferred to Telemetry. cardiology following for SVT. Also evaluated by Neurology for breakthrough seizures. Currently on same dose keppra 1000mg bid. Hospitalist Physical - Constitutional Vitals: Temp Pulse Resp BP Pulse Ox 98.0 F 59 L 14 124/64 97 05/07/19 04:09 05/07/19 09:47 05/07/19 08:32 05/07/19 09:47 05/07/19 08:32 General appearance: Present: other (intubated, ) - EENT Eyes: Present: PERRL, EOM intact ENT: hearing intact, clear oral mucosa, dentition normal - Neck Neck: Present: supple, normal ROM - Respiratory Respiratory effort: normal Respiratory: bilateral: CTA - Cardiovascular Rhythm: regular Heart Sounds: Present: S1 & S2. Absent: gallop, rub - Extremities Extremities: no ischemia, No edema, Full ROM - Abdominal General gastrointestinal: soft, non-tender, non-distended, normal bowel sounds - Integumentary Integumentary: Present: clear, warm, dry - Neurologic Neurologic: CNII-XII intact, moves all extremities Results - Labs CBC & Chem 7: 05/06/19 06:52 05/06/19 06:52 Labs: Laboratory Last Values WBC 6.4 K/mm3 (4.5-11.0) 05/06/19 06:52 RBC 5.31 M/mm3 (3.65-5.03) H 05/06/19 06:52 Hgb 16.2 gm/dl (11.8-15.2) H 05/06/19 06:52 Hct 48.3 % (35.5-45.6) H 05/06/19 06:52 MCV 91 fl (84-94) 05/06/19 06:52 MCH 31 pg (28-32) 05/06/19 06:52 MCHC 34 % (32-34) 05/06/19 06:52 RDW 14.4 % (13.2-15.2) 05/06/19 06:52 Plt Count 119 K/mm3 (140-440) L 05/06/19 06:52 Lymph % (Auto) 5.3 % (13.4-35.0) L 05/02/19 02:44 [place] % (Auto) 5.1 % (0.0-7.3) 05/02/19 02:44 Eos % (Auto) 0.0 % (0.0-4.3) 05/02/19 02:44 Baso % (Auto) 0.3 % (0.0-1.8) 05/02/19 02:44 Lymph # 0.5 K/mm3 (1.2-5.4) L 05/02/19 02:44 [place] # 0.5 K/mm3 (0.0-0.8) 05/02/19 02:44 Eos # 0.0 K/mm3 (0.0-0.4) 05/02/19 02:44 Baso # 0.0 K/mm3 (0.0-0.1) 05/02/19 02:44 Seg Neutrophils % 89.3 % (40.0-70.0) H 05/02/19 02:44 Seg Neutrophils # 8.0 K/mm3 (1.8-7.7) H 05/02/19 02:44 PT 19.6 Sec. (12.2-14.9) H 05/06/19 19:41 INR 1.70 (0.87-1.13) H 05/06/19 19:41 APTT 28.6 Sec. (24.2-36.6) 05/01/19 23:09 POC ABG pH 7.419 (7.35-7.45) 05/03/19 12:24 ABG pH 7.437 pH Units (7.350-7.450) 05/03/19 Unknown POC ABG pCO2 32.3 (35-45) L 05/03/19 12:24 ABG pCO2 32.9 mm Hg 05/03/19 Unknown POC ABG pO2 100 (80-105) 05/03/19 12:24 ABG pO2 97.6 mm Hg (80.0-90.0) H 05/03/19 Unknown POC ABG HCO3 20.9 (22-26 mml/L) 05/03/19 12:24 ABG HCO3 21.7 mmol/L (20.0-26.0) 05/03/19 Unknown POC ABG Total CO2 22 (23-27mmol/L) 05/03/19 12:24 POC ABG O2 Sat 98 05/03/19 12:24 ABG O2 Saturation 97.6 % (95.0-99.0) 05/03/19 Unknown ABG O2 Content 18.2 (0.0-44) 05/03/19 Unknown POC ABG Base Excess -4 ((-2) - (+3)mmol/L) 05/03/19 12:24 ABG Base Excess -1.7 mmol/L (-2.0-3.0) 05/03/19 Unknown ABG Hemoglobin 13.5 gm/dl (14.0-18.0) L 05/03/19 Unknown ABG Carboxyhemoglobin 1.4 % (0.0-5.0) 05/03/19 Unknown ABG Methemoglobin 0.6 % (0.0-1.5) 05/03/19 Unknown 95.7 % (95.0-99.0) 05/03/19 Unknown 25 % 05/03/19 Unknown Sodium 143 mmol/L (137-145) 05/06/19 06:52 Potassium 4.0 mmol/L (3.6-5.0) 05/06/19 06:52 Chloride 106.6 mmol/L (98-107) 05/06/19 06:52 Carbon Dioxide 21 mmol/L (22-30) L 05/06/19 06:52 19 mmol/L 05/06/19 06:52 BUN 16 mg/dL (9-20) 05/06/19 06:52 1.3 mg/dL (0.8-1.5) 05/06/19 06:52 Estimated GFR > 60 ml/min 05/06/19 06:52 12 % 05/06/19 06:52 Glucose 100 mg/dL (75-100) 05/06/19 06:52 POC Glucose 88 (70-105) 05/07/19 06:24 Lactic Acid 0.80 mmol/L (0.7-2.0) 05/06/19 19:41 Calcium 8.9 mg/dL (8.4-10.2) 05/06/19 06:52 1.20 mg/dL (0.1-1.2) 05/03/19 05:29 AST 29 units/L (5-40) 05/03/19 05:29 ALT 20 units/L (7-56) 05/03/19 05:29 54 units/L (35-129) 05/03/19 05:29 138 units/L (55-170) 05/02/19 10:20 CK-MB (CK-2) 2.1 ng/mL (0.0-4.0) 05/02/19 10:20 CK-MB (CK-2) Rel Index 1.5 (0-4) 05/02/19 10:20 0.020 ng/mL (0.00-0.029) 05/03/19 10:48 NT-Pro-B Natriuret Pep 1146 pg/mL (0-900) H 05/01/19 23:10 5.8 g/dL (6.3-8.2) L 05/03/19 05:29 3.0 g/dL (3.9-5) L 05/03/19 05:29 1.1 % 05/03/19 05:29 Triglycerides 47 mg/dL (2-149) 05/02/19 10:20 Cholesterol 126 mg/dL (50-199) 05/02/19 10:20 76 mg/dL (50-130) 05/02/19 10:20 62 mg/dL (40-59) H 05/02/19 10:20 2.03 % 05/02/19 10:20 Yellow (Yellow) 05/02/19 Unknown Slightly-cloudy (Clear) 05/02/19 Unknown 5.0 (5.0-7.0) 05/02/19 Unknown Ur Specific [place] 1.027 (1.003-1.030) 05/02/19 Unknown 100 mg/dl mg/dL (Negative) 05/02/19 Unknown 150 mg/dL (Negative) 05/02/19 Unknown Tr mg/dL (Negative) 05/02/19 Unknown Neg (Negative) 05/02/19 Unknown Neg (Negative) 05/02/19 Unknown Neg (Negative) 05/02/19 Unknown < 2.0 mg/dL (<2.0) 05/02/19 Unknown Ur Leukocyte Esterase Neg (Negative) 05/02/19 Unknown 4.0 /HPF (0.0-6.0) 05/02/19 Unknown 2.0 /HPF (0.0-6.0) 05/02/19 Unknown U Epithel Cells (Auto) 1.0 /HPF (0-13.0) 05/02/19 Unknown Hyaline Casts 8 /LPF 05/02/19 Unknown Granular Casts 6 /LPF 05/02/19 Unknown 1+ /HPF 05/02/19 Unknown Presumptive negative 05/02/19 Unknown Presumptive negative 05/02/19 Unknown Ur Barbiturates Screen Presumptive negative 05/02/19 Unknown Ur Phencyclidine Scrn Presumptive negative 05/02/19 Unknown Ur Amphetamines Screen Presumptive negative 05/02/19 Unknown U Benzodiazepines Scrn Presumptive positive 05/02/19 Unknown Presumptive negative 05/02/19 Unknown U Marijuana (THC) Screen Presumptive negative 05/02/19 Unknown Disclamer 05/02/19 Unknown Active Medications - Current Medications Current Medications: Generic Name Dose Route Start Last Admin Trade Name Freq PRN Reason Stop Dose Admin Acetaminophen 650 mg 05/02/19 02:25 05/04/19 10:15 Tylenol PO 650 mg Q4H PRN Administration Pain MILD(1-3)/Fever >100.5/FARLEY Amiodarone HCl 200 mg 05/08/19 10:00 Cordarone PO DAILY [facility] Lipase/Protease/Amylase 1 each 05/02/19 14:30 Pancreaze 10,500 Unit FEEDTUBE PRN PRN For Clogged Feeding Tube Baclofen 10 mg 05/04/19 14:00 05/07/19 09:00 Lioresal PO 10 mg TID NEVIN Administration Dextrose 50 ml 05/02/19 03:04 D50w (25gm) Syringe IV PRN PRN Hypoglycemia Hydrophilic Ointment 1 applic 05/02/19 01:04 Vaseline Lip Therapy TP Q2HR PRN Dry Lips Insulin Human Lispro 0 unit 05/02/19 06:00 05/07/19 06:24 Humalog SUB-Q Not Given Q6HR [facility] Protocol Levetiracetam 1,000 mg 05/04/19 14:00 05/07/19 09:46 Keppra PO 1,000 mg BID NEVIN Administration Lorazepam 1 mg 05/02/19 09:34 05/04/19 06:16 Ativan IV 1 mg Q4H PRN Administration Agitation Metoprolol Tartrate 25 mg 05/02/19 22:00 05/07/19 09:47 Lopressor PO Not Given BID [facility] Morphine Sulfate 2 mg 05/06/19 11:01 Morphine IV Q4H PRN Pain, Moderate (4-6) Multi-Ingred Cream/Lotion/Oil/Oint 1 applic 05/02/19 01:04 Artificial Tears Ophth Oint OU Q4HR PRN Dry Eye(s) Ondansetron HCl 4 mg 05/02/19 02:25 Zofran IV Q8H PRN Nausea And Vomiting Potassium Chloride 20 meq 05/04/19 14:00 05/07/19 09:46 K-Dur PO 20 meq QDAY NEVIN Administration Simple Syrup 15 ml 05/02/19 14:30 Simple Syrup FEEDTUBE PRN PRN Hypoglycemia Simple Syrup 30 ml 05/02/19 14:30 Simple Syrup FEEDTUBE PRN PRN Hypoglycemia Sodium Bicarbonate 325 mg 05/02/19 14:30 Sodium Bicarbonate FEEDTUBE PRN PRN For Clogged Feeding Tube Sodium Chloride 10 ml 05/02/19 10:00 05/07/19 09:48 Sodium Chloride Flush Syringe 10 Ml IV 10 ml BID NEVNI Administration Sodium Chloride 10 ml 05/02/19 02:25 Sodium Chloride Flush Syringe 10 Ml IV PRN PRN LINE FLUSH Nutrition/Malnutrition Assess - Dietary Evaluation Nutrition/Malnutrition Findings: Nutrition Notes Start: 05/02/19 14:09 Freq: Status: Active Protocol: Document 05/06/19 11:55 FATEMEH (Rec: 05/06/19 12:01 [id number]) Nutrition Notes Initial or Follow up Reassessment Current Diagnosis Diabetes,Stroke Other Pertinent Diagnosis Seizure D/O, afib Current Diet Cardiac pureed Labs/Tests Reviewed Pertinent Medications 20mEq KCl q day Height 6 ft Weight 115.1 kg [place] Body Weight (kg) 80.90 BMI 34.4 Subjective/Other Information Pt extubated on 05/03 and diet advanced on 05/04. Pt says he is tolerating PO intake so far ; no PO intakes documented. Burn Absent Trauma Absent #2 Nutrition Diagnosis Increased nutrient needs ( specify in comment below) Diagnosis Progress(for reassessment Continues documentation) #1 Nutrition Diagnosis Inadequate oral intake Diagnosis Progress(for reassessment Continues documentation) Is patient on ventilator? No Is Patient Ambulatory and/or Out of Bed No REE-([facility]-confined to bed) 2373.660 Kcal/Kg value to use for calculation 17 Approximate Energy Requirements Using 1957 kcal/Kg Calculation Used for Recommendations Kcal/kg Additional Notes Pro needs 1-1.2g/kg adjBW: 98- 118g/day Fluid needs 1ml/kcal Nutrition Intervention Change Diet Order: Continue current diet order Goal #1 PO intakes to meet at least 75 % energy and pro needs Follow-Up By: 05/09/19 Additional Comments F/U: intakes, wt
--- NOTE | 2019-05-07 12:29 | Gastroenterology Progress Note ---
Assessment and Plan 1.dilated colon - question of sigmoid volvulus vs pseudocolonic obstruction. - unclear if this is chronic vs acute. At least xray from 05/02/2019 showed dilated large bowel as well. - lactic acid WNL - CT a/p with dilated colon but no clear signs of sigmoid volvulus. No bowel wall thickening. - surgery following - clinically, patient appears nontoxic w/o signs of peritonitis. Abd distended but soft, nontender. BMs x 2 overnight per nursing. No vomiting. - will order KUB today - consider flex sig for decompression based on progress/results - start on laxatives (consider neostigmine if no improvement) - avoid narcotics - encourage OOB - continue supportive care - further recommendations to follow Subjective Date of service: 05/07/19 Principal diagnosis: dilated colon Interval history: Patient resting in bed this am w/o acute distress. BMs x 2 overnight with liquid stool per nursing. No vomiting today. Objective - Constitutional Vitals: Temp Pulse Resp BP Pulse Ox 98.3 F 61 14 118/55 98 05/07/19 08:31 05/07/19 12:09 05/07/19 08:32 05/07/19 12:09 05/07/19 12:09 General appearance: no acute distress - Respiratory Respiratory effort: normal - Cardiovascular Rhythm: other (irregular) - Gastrointestinal General gastrointestinal: Present: soft, non-tender, distended, hypoactive bowel sounds - Labs CBC & Chem 7: 05/06/19 06:52 05/06/19 06:52 Labs: Laboratory Results - last 24 hr 05/06/19 05/06/19 05/06/19 12:44 16:02 19:41 PT 19.6 H INR 1.70 H POC Glucose 119 H 165 H Lactic Acid 05/06/19 05/06/19 05/07/19 19:41 23:39 06:24 PT INR POC Glucose 100 88 Lactic Acid 0.80
--- NOTE | 2019-05-07 12:46 | Progress Note ---
Assessment and Plan colonic distension. reviewed CT scan today with radiologist, who mentions pt having a redundant colon and no visible lesions in the rectum or anus that could be causing obstruction. clinically and radiographically no evidence of sigmoid volvulous, or toxic jocelyn-colon. presentation more c/w with colonic psuedo- obstruction. No surgical intervention warranted at this time. GI also evaluating patient and may do a decompressive scope. clinically stable and afebrile, ok to resume diet if no intervention planned. Subjective Date of service: 05/07/19 Patient Reports: Positive: feels better, bowel movement (has had two bowel movements since last night) Objective Vital Signs - 12hr 05/07/19 05/07/19 05/07/19 04:09 08:04 08:31 Temperature 98.0 F 98.3 F Pulse Rate 50 L 50 L Pulse Rate [ From Monitor] Respiratory 18 18 Rate Blood Pressure 123/65 122/69 O2 Sat by Pulse 94 95 100 Oximetry 05/07/19 05/07/19 05/07/19 08:32 09:47 12:09 Temperature Pulse Rate 45 L 61 Pulse Rate [ 72 From Monitor] Respiratory 14 Rate Blood Pressure 127/64 118/55 O2 Sat by Pulse 97 98 98 Oximetry - General physical appearance no distress - Respiratory normal expansion, normal respiratory effort - Abdomen soft, not tender, not rebound, not guarding, not rigid, other (slightly less distended) - Labs 05/06/19 06:52 05/06/19 06:52
[2019-05-07] MEDS ORDERED: CITRATE OF MAGNESIA PO ONE (14:00)
--- NOTE | 2019-05-07 14:28 | XRay Report ---
ABDOMEN 1 VIEW 1:39 PM INDICATION / CLINICAL INFORMATION: Dilated colon on CT. COMPARISON: None available. FINDINGS: TUBES / LINES: None. BOWEL GAS PATTERN: Gaseous distention of the colon has not changed significantly since yesterday. FREE AIR / EXTRALUMINAL GAS: None seen. ADDITIONAL FINDINGS: No significant additional findings. IMPRESSION: Gaseous distention of the colon has not changed since yesterday. Signer Name: Leonard Allen MD Signed: 05/07/2019 2:24 PM Workstation Name: [id number]
--- NOTE | 2019-05-07 17:27 | Progress Note ---
Subjective Date of service: 05/07/19 Principal diagnosis: dilated colon Interval history: went over the CT and it showed very stable loss of brain tissue very extensive from the left hemispher from old and stable stroke nothing acute to comment on this explains the severe disablity from the old stroke as brain damage is very profound Objective - Vital Sign Vital Signs - 12hr 05/07/19 05/07/19 05/07/19 08:04 08:31 08:32 Temperature 98.3 F Pulse Rate 50 L Pulse Rate [ 72 From Monitor] Respiratory 18 14 Rate Blood Pressure 122/69 O2 Sat by Pulse 95 100 97 Oximetry 05/07/19 05/07/19 09:47 12:09 Temperature Pulse Rate 45 L 61 Pulse Rate [ From Monitor] Respiratory Rate Blood Pressure 127/64 118/55 O2 Sat by Pulse 98 98 Oximetry - Laboratory Findings CBC and BMP: 05/06/19 06:52 05/06/19 06:52 Abnormal Lab Findings: Abnormal Labs 05/01/19 05/01/19 05/01/19 01:06 23:09 23:10 RBC Hgb Hct RDW Plt Count Lymph % (Auto) Lymph # Seg Neutrophils % Seg Neutrophils # PT 22.6 H INR 2.04 H ABG pH 7.275 L POC ABG pCO2 ABG pO2 267.9 H ABG HCO3 19.4 L ABG O2 Saturation 99.4 H ABG Base Excess -7.2 L ABG Hemoglobin Sodium Carbon Dioxide BUN Glucose POC Glucose Troponin T NT-Pro-B Natriuret Pep 1146 H Total Protein Albumin HDL Cholesterol 05/02/19 05/02/19 05/02/19 01:32 02:44 02:44 RBC 5.36 H Hgb 16.2 H 15.3 H Hct 49.9 H 45.9 H RDW 15.4 H Plt Count 125 L 122 L Lymph % (Auto) 5.7 L 5.3 L Lymph # 0.5 L 0.5 L Seg Neutrophils % 90.0 H 89.3 H Seg Neutrophils # 8.4 H 8.0 H PT INR ABG pH POC ABG pCO2 ABG pO2 ABG HCO3 ABG O2 Saturation ABG Base Excess ABG Hemoglobin Sodium Carbon Dioxide BUN 24 H Glucose 263 H POC Glucose Troponin T NT-Pro-B Natriuret Pep Total Protein Albumin HDL Cholesterol 05/02/19 05/02/19 05/02/19 06:11 10:20 12:47 RBC Hgb Hct RDW Plt Count Lymph % (Auto) Lymph # Seg Neutrophils % Seg Neutrophils # PT INR ABG pH POC ABG pCO2 ABG pO2 ABG HCO3 ABG O2 Saturation ABG Base Excess ABG Hemoglobin Sodium Carbon Dioxide BUN Glucose POC Glucose 215 H 158 H Troponin T 0.031 H D NT-Pro-B Natriuret Pep Total Protein Albumin HDL Cholesterol 62 H 05/02/19 05/02/19 05/02/19 18:31 23:34 Unknown RBC Hgb Hct RDW Plt Count Lymph % (Auto) Lymph # Seg Neutrophils % Seg Neutrophils # PT INR ABG pH POC ABG pCO2 ABG pO2 212.5 H ABG HCO3 19.2 L ABG O2 Saturation 99.3 H ABG Base Excess -3.9 L ABG Hemoglobin Sodium Carbon Dioxide BUN Glucose POC Glucose 174 H 112 H Troponin T NT-Pro-B Natriuret Pep Total Protein Albumin HDL Cholesterol 05/03/19 05/03/19 05/03/19 04:35 05:29 05:29 RBC Hgb Hct RDW Plt Count Lymph % (Auto) Lymph # Seg Neutrophils % Seg Neutrophils # PT 36.7 H INR 3.77 H ABG pH 7.472 H POC ABG pCO2 ABG pO2 206.8 H ABG HCO3 ABG O2 Saturation 99.3 H ABG Base Excess ABG Hemoglobin Sodium 136 L Carbon Dioxide BUN Glucose 115 H POC Glucose Troponin T NT-Pro-B Natriuret Pep Total Protein 5.8 L Albumin 3.0 L HDL Cholesterol 05/03/19 05/03/19 05/03/19 05:29 05:45 12:18 RBC Hgb Hct RDW Plt Count 87 L Lymph % (Auto) Lymph # Seg Neutrophils % Seg Neutrophils # PT INR ABG pH POC ABG pCO2 ABG pO2 ABG HCO3 ABG O2 Saturation ABG Base Excess ABG Hemoglobin Sodium Carbon Dioxide BUN Glucose POC Glucose 113 H 116 H Troponin T NT-Pro-B Natriuret Pep Total Protein Albumin HDL Cholesterol 05/03/19 05/03/19 05/04/19 12:24 Unknown 03:04 RBC Hgb Hct RDW Plt Count 85 L Lymph % (Auto) Lymph # Seg Neutrophils % Seg Neutrophils # PT INR ABG pH POC ABG pCO2 32.3 L ABG pO2 97.6 H ABG HCO3 ABG O2 Saturation ABG Base Excess ABG Hemoglobin 13.5 L Sodium Carbon Dioxide BUN Glucose POC Glucose Troponin T NT-Pro-B Natriuret Pep Total Protein Albumin HDL Cholesterol 05/04/19 05/05/19 05/05/19 17:21 07:00 10:20 RBC 5.06 H Hgb 15.7 H Hct 46.2 H RDW Plt Count 97 L Lymph % (Auto) Lymph # Seg Neutrophils % Seg Neutrophils # PT 27.9 H INR 2.66 H ABG pH POC ABG pCO2 ABG pO2 ABG HCO3 ABG O2 Saturation ABG Base Excess ABG Hemoglobin Sodium Carbon Dioxide BUN Glucose POC Glucose 121 H Troponin T NT-Pro-B Natriuret Pep Total Protein Albumin HDL Cholesterol 05/05/19 05/06/19 05/06/19 13:44 06:52 06:52 RBC 5.31 H Hgb 16.2 H Hct 48.3 H RDW Plt Count 119 L Lymph % (Auto) Lymph # Seg Neutrophils % Seg Neutrophils # PT INR ABG pH POC ABG pCO2 ABG pO2 ABG HCO3 ABG O2 Saturation ABG Base Excess ABG Hemoglobin Sodium Carbon Dioxide 21 L BUN Glucose POC Glucose 176 H Troponin T NT-Pro-B Natriuret Pep Total Protein Albumin HDL Cholesterol 05/06/19 05/06/19 05/06/19 12:44 16:02 19:41 RBC Hgb Hct RDW Plt Count Lymph % (Auto) Lymph # Seg Neutrophils % Seg Neutrophils # PT 19.6 H INR 1.70 H ABG pH POC ABG pCO2 ABG pO2 ABG HCO3 ABG O2 Saturation ABG Base Excess ABG Hemoglobin Sodium Carbon Dioxide BUN Glucose POC Glucose 119 H 165 H Troponin T NT-Pro-B Natriuret Pep Total Protein Albumin HDL Cholesterol
[2019-05-07] MEDS: MIRALAX 3350 PO SCH (22:38)
[2019-05-08] MEDS: HumaLOG SUB-Q SCH ×3 (00:08→12:17)
[2019-05-08 05:50] LABS: Basophils % (Auto) 0.6 % (0.0-1.8); Eosinophils # (Auto) 0.1 K/mm3 (0.0-0.4); Eosinophils % (Auto) 1.7 % (0.0-4.3); Hematocrit 45.5 % (35.5-45.6); Hemoglobin 15.3 gm/dl (11.8-15.2); Lymphocytes # (Auto) 1.2 K/mm3 (1.2-5.4); Lymphocytes % (Auto) 22.5 % (13.4-35.0); Mean Corpuscular HGB Conc 34 % (32-34); Mean Corpuscular Volume 90 fl (84-94); Monocytes # (Auto) 0.6 K/mm3 (0.0-0.8); Monocytes % (Auto) 11.7 % (0.0-7.3); Platelet Count 127 K/mm3 (140-440); Red Blood Count 5.04 M/mm3 (3.65-5.03); Red Cell Distribution Width 14.5 % (13.2-15.2)
[2019-05-08 06:23] LABS: BUN/Creatinine Ratio 10; Blood Urea Nitrogen 14 mg/dL (9-20); Calcium 9.1 mg/dL (8.4-10.2); Hemolysis Index 18
[2019-05-08] MEDS ORDERED: CORDARONE PO SCH (10:00)
--- NOTE | 2019-05-08 11:09 | Progress Note ---
Assessment and Plan Pt initially had parox AFib with RVR and now in AFib with SVR. D/c PO amio. Cont lopressor with hold parameters. Pt was taking Xarelto for systemic AC in regards to parox afib at home. His INR was 2.04 on admission, then increased to 3.77, now 1.70 yesterday and LFTs WNL. GI and surgery w/u currently in progress for dilated colon. Pt for possible endoscopy. Recommend resuming systemic AC if okay per GI and if no contraindication. The patient has been seen in conjunction with Dr. English who agrees with the assessment and plan of care. - Patient Problems (1) Paroxysmal atrial fibrillation Current Visit: Yes Status: Chronic (2) Seizure disorder Current Visit: Yes Status: Acute (3) Altered mental status Current Visit: Yes Status: Acute (4) Acute respiratory failure Current Visit: Yes Status: Acute (5) Status post craniectomy Current Visit: Yes Status: Chronic (6) HTN (hypertension) Current Visit: Yes Status: Acute (7) Diabetes Current Visit: Yes Status: Acute (8) History of cardiomyopathy Current Visit: Yes Status: Chronic (9) Normal coronary arteries Current Visit: Yes Status: Chronic (10) History of intracranial hemorrhage Current Visit: Yes Status: Chronic (11) Coagulopathy Current Visit: Yes Status: Acute Subjective Date of service: 05/08/19 Principal diagnosis: dilated colon Interval history: pt resting in bed, appears alert, responding appropriately, no apparent distress. in AFib on telemetry with HR 60s, HR low of 44bpm overnight. Objective Last Vital Signs Temp 98.4 F 05/08/19 08:19 Pulse 56 L 05/08/19 08:19 Resp 18 05/08/19 08:19 BP 144/71 05/08/19 08:19 Pulse Ox 100 05/08/19 08:19 - Physical Examination General: No Apparent Distress HEENT: Positive: PERRL Neck: Positive: neck supple Cardiac: Positive: irregularly irregular, S1/S2 Lungs: Positive: Decreased Breath Sounds Neuro: Positive: Grossly Intact, Other (aphasia) Abdomen: Positive: Unremarkable /Rectal: Other (deferred) Skin: Positive: Clear, Other (left calf open wound ). Negative: Rash, Wound Musculoskeletal: No Pain Extremities: Present: normal. Absent: edema - Labs and Meds CBC 05/08/19 Range/Units 04:07 WBC 5.2 (4.5-11.0) K/mm3 RBC 5.04 H (3.65-5.03) M/mm3 Hgb 15.3 H (11.8-15.2) gm/dl Hct 45.5 (35.5-45.6) % Plt Count 127 L (140-440) K/mm3 Lymph # 1.2 (1.2-5.4) K/mm3 [place] # 0.6 (0.0-0.8) K/mm3 Eos # 0.1 (0.0-0.4) K/mm3 Baso # 0.0 (0.0-0.1) K/mm3 Comprehensive Metabolic Panel 05/08/19 Range/Units 04:07 Sodium 145 (137-145) mmol/L Potassium 4.0 (3.6-5.0) mmol/L Chloride 107.4 H (98-107) mmol/L Carbon Dioxide 23 (22-30) mmol/L BUN 14 (9-20) mg/dL Creatinine 1.4 (0.8-1.5) mg/dL Glucose 77 (75-100) mg/dL Calcium 9.1 (8.4-10.2) mg/dL - Imaging and Cardiology EKG: report reviewed, image reviewed Echo: pending, report reviewed (05/02/19: EF 20-25%, LV filling pattern restrictive, trace MR, trace TR) Cardiac cath: report reviewed (2003 showed normal coronaries. )
[2019-05-08] MEDS: KEPPRA PO SCH (12:02)
[2019-05-08] MEDS: K-DUR PO SCH (12:02)
[2019-05-08] MEDS: LOPRESSOR PO SCH (12:03)
[2019-05-08] MEDS: LIORESAL PO SCH ×2 (12:05→20:14)
[2019-05-08] MEDS: SODIUM CHLORIDE FLUSH SYRINGE 10 ML IV SCH (12:15)
[2019-05-08] MEDS: MIRALAX 3350 PO SCH (12:15)
--- NOTE | 2019-05-08 12:39 | Discharge Summary ---
Providers - Providers Date of Admission: 05/02/19 04:12 Date of discharge: 05/08/19 Attending physician: NATHALIE SUE 05/02/19 01:05 Consult to Dietitian/Nutrition [CONS] Routine Physician Instructions: Reason For Exam: Reason for Consult: Evaluate nutritional intake 05/02/19 13:48 Consult to Dietitian/Nutrition [CONS] Stat Physician Instructions: Reason For Exam: Reason for Consult: Write/Manage Tube Feeding 05/02/19 19:22 Consult to Wound/ET Nurse [CONS] Stat Reason For Exam: wound eval 05/03/19 15:47 Speech Therapy Evaluation and Treat [CONS] Stat Reason For Exam: post extubated 05/05/19 08:55 Consult to Physician [CONS] Routine Comment: Consulting Provider: ABIGAIL SILVERMAN Physician Instructions: Reason For Exam: breakthrough seizures 05/05/19 12:03 Physical Therapy Evaluation and Treat [CONS] Routine Comment: Reason For Exam: Gen weakness 05/06/19 14:30 Consult to Physician [CONS] Routine Comment: Consulting Provider: ALANA MACIEL Physician Instructions: Reason For Exam: Abd pain, gaseous distension,poss volvulus Primary care physician: NEWS COMMENTATOR Hospitalization Reason for admission: afib and resp failure Condition: Stable Hospital course: Patient is 63 -year-old man with a history of CVA with right-sided weakness, seizure, diabetes, A. fib was brought to the emergency room for evaluation. stated that the granddaughter notified her that the patient was staring at the ceiling while she was talking to him [employer]. She went to check on him and found that he was twitching the left side and unresponsive. EMS was called, they gave him Versed for seizure. He was also found to be in SVT rate of 200, he was given adenosine 6 and 12, heart rate went from 180 to 200. In the emergency room he was shocked once with 50 J and intubated, his heart rate went to 150. He was shocked again at 200J, heart rate went to low 100s, started on amiodarone drip, admitted to ICU. The patient was noted to have inability to protect his airway and respiratory failure thus intubated on admission. He improved and was later extubated on 05/03/19 and transferred to Telemetry. Patient was seen by pulmonary for the respiratory failure initially. Also consultation with cardiology for SVT. Cardiology eventually diagnosed patient with paroxysmal atrial fibrillation. Ventricular rate stabilized with medications of amiodarone adjusted by cardiology. Also evaluated by Neurology for breakthrough seizures. Recommendations were for keppra 1000mg bid. Neurology went over the CT and it showed very stable loss of brain tissue very extensive from the left hemispher from old and stable stroke nothing acute to comment on this explains the severe disability from the old stroke as brain damage is very profound. Other complications during hospital stay included colonic distention seen on x-ray for a few days. There was a concern for colonic volvulus. GI surgery will consult. Surgery felt that clinically and radiographically no evidence of sigmoid volvulous, or toxic jocelyn-colon. The presentation more c/w with colonic psuedo-obstruction. No surgical intervention warranted at this time per surgery. GI felt no need for endoscopy to decompress. Patient was treated conservatively and had resolution of symptoms. Therefore, patient is felt to receive maximal hospital benefit and will be discharged home. Cardiology recommends resuming anticoagulation. Dedicated discharge time 35 minutes. Disposition: DC-01 TO HOME OR SELFCARE Time spent for discharge: 35 - Discharge Diagnoses (1) Acute respiratory failure Status: Acute (2) Altered mental status Status: Acute (3) Atrial fibrillation with RVR Status: Acute (4) Coagulopathy Status: Acute (5) Diabetes Status: Acute (6) HTN (hypertension) Status: Acute (7) Seizure disorder Status: Acute (8) Sustained SVT Status: Acute (9) History of CVA (cerebrovascular accident) Status: Chronic (10) History of cardiomyopathy Status: Chronic (11) Paroxysmal atrial fibrillation with RVR Status: Chronic Core Measure Documentation - Palliative Care Palliative Care/ Comfort Measures: Not Applicable - Core Measures Any of the following diagnoses?: none Exam - Constitutional Vitals: Temp Pulse Resp BP Pulse Ox 97.9 F 71 18 127/75 98 05/08/19 11:45 05/08/19 12:03 05/08/19 11:45 05/08/19 12:03 05/08/19 11:45 General appearance: Present: no acute distress, well-nourished - EENT Eyes: Present: PERRL ENT: hearing intact, clear oral mucosa - Neck Neck: Present: supple, normal ROM - Respiratory Respiratory effort: normal Respiratory: bilateral: CTA - Cardiovascular Heart Sounds: Present: S1 & S2. Absent: rub, click - Extremities Extremities: pulses symmetrical, No edema Peripheral Pulses: within normal limits - Abdominal General gastrointestinal: Present: soft, non-tender, non-distended, normal bowel sounds Male genitourinary: Present: normal - Integumentary Integumentary: Present: clear, warm, dry - Musculoskeletal Musculoskeletal: gait normal, strength equal bilaterally - Psychiatric Psychiatric: appropriate mood/affect, intact judgment & insight - Neurologic Neurologic: CNII-XII intact, moves all extremities Plan Activity: advance as tolerated Weight Bearing Status: Weight Bear as Tolerated Diet: low fat, low cholesterol, low salt Follow up with: PRIMARY CARE, [Primary Care Provider] - 3-5 Days CARLOS EDUARDO MARTINEZ MD [Staff Physician] - 7 Days ALANA MACIEL MD [Staff Physician] - 7 Days FAYE COLLINS MD [Staff Physician] - 7 Days Prescriptions: Potassium Chloride [K-Dur] 20 meq PO QDAY #60 tablet levETIRAcetam [Keppra TAB] 1,000 mg PO BID #60 tablet Baclofen [Lioresal] 10 mg PO TID #90 tablet Metoprolol [Lopressor TAB] 25 mg PO BID #60 tablet Polyethylene Glycol 3350 [Miralax 3350] 17 gm PO BID #60 powd.pack Sodium Bicarbonate 325 mg FEEDTUBE PRN PRN #10 tablet PRN Reason: For Clogged Feeding Tube Rivaroxaban [Xarelto] 20 mg PO QDAY #30 tablet
--- NOTE | 2019-05-08 15:30 | Gastroenterology Progress Note ---
Assessment and Plan GI: pt w/ signs improving, abdominal exam improved - Miralax qd as outpt - pt wants to go, ok to d/c from GI standpoint - will sign off, call if needed Subjective Date of service: 05/08/19 Principal diagnosis: dilated colon Interval history: - reports feels much better after bm's overnight. wants to go Objective - Constitutional Vitals: Temp Pulse Resp BP Pulse Ox 97.9 F 71 18 127/75 98 05/08/19 11:45 05/08/19 12:03 05/08/19 11:45 05/08/19 12:03 05/08/19 11:45 General appearance: no acute distress - EENT Eyes: PERRL - Respiratory Respiratory: bilateral: CTA - Cardiovascular Rhythm: regular Heart Sounds: Present: S1 & S2 - Gastrointestinal General gastrointestinal: Present: soft, non-tender, non-distended - Labs CBC & Chem 7: 05/08/19 04:07 05/08/19 04:07 Labs: Laboratory Results - last 24 hr 05/07/19 05/07/19 05/08/19 17:26 23:53 04:07 WBC 5.2 RBC 5.04 H Hgb 15.3 H Hct 45.5 MCV 90 MCH 30 MCHC 34 RDW 14.5 Plt Count 127 L Lymph % (Auto) 22.5 [place] % (Auto) 11.7 H Eos % (Auto) 1.7 Baso % (Auto) 0.6 Lymph # 1.2 [place] # 0.6 Eos # 0.1 Baso # 0.0 Seg Neutrophils % 63.5 Seg Neutrophils # 3.3 Sodium Potassium Chloride Carbon Dioxide Anion Gap BUN Creatinine Estimated GFR BUN/Creatinine Ratio Glucose POC Glucose 96 89 Calcium 05/08/19 05/08/19 05/08/19 04:07 07:06 11:51 WBC RBC Hgb Hct MCV MCH MCHC RDW Plt Count Lymph % (Auto) [place] % (Auto) Eos % (Auto) Baso % (Auto) Lymph # [place] # Eos # Baso # Seg Neutrophils % Seg Neutrophils # Sodium 145 Potassium 4.0 Chloride 107.4 H Carbon Dioxide 23 Anion Gap 19 BUN 14 Creatinine 1.4 Estimated GFR > 60 BUN/Creatinine Ratio 10 Glucose 77 POC Glucose 74 81 Calcium 9.1
[2019-05-08 16:54] VITALS: BP 117/61
--- NOTE | 2019-05-09 05:35 | Consultation ---
HISTORY OF PRESENT ILLNESS: This is a 63-year-old black male that initially presented to [facility] via the Emergency Room on 05/01/2019. On presentation to the Emergency Room, the patient initially presented with complaints of a prior history of CVA, status post tracheostomy, PEG tube placement and had a history of seizures. He is brought by EMS because he had had a seizure and was seizing at time of admission. The patient had previously been on levetiracetam 1000 mg b.i.d. and Xarelto 20 mg daily, baclofen 10 mg p.o. t.i.d. On followup evaluation neurologically, the patient at this point is seizure free, he s alert. I have reviewed his CT scan of the head, shows no progression of an old lesion in the left hemisphere, massive dilation of the ventricular system noted over the left side compatible with an old stable infarct of the left hemisphere with loss of the deep white matter, bower matter of the entire left hemisphere. PHYSICAL EXAMINATION: VITAL SIGNS: On my examination of the patient, blood pressure 120/80, respirations 18, pulse rate is 86. NEUROLOGIC: Cranial nerves 2-12 are intact, but he does have quite prominent speech problem. He is aphasic. He has a right facial weakness and contracture of the right arm. He has gaze to the left, has difficulty following simple commands. I do not see any recurrent seizure activity. His motor tone is very hypertonic on the right side, spastic. 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 I think his dose of Keppra is certainly adequate, sometimes Keppra given through PEG tube is not well absorbed and that may be the basis of the problem. I do not see the need to add any other anticonvulsants at this time. This may simply be compliance issue. I would keep him on the Xarelto. He has taken this medicine previously and has been very effective. JOB# [id number] KALEB/DORIS
== END 2019-05-08 18:45 | disposition home or self-care (01) | DRG 208 ==
LOC: ED 22:22 → CC1 05-02 04:12 → 4A 05-04 16:30
PROVIDERS: ADMIT Internal Medicine; ATTEND Hospitalist
PROC: 5A1945Z Respiratory Ventilation, 24-96 Consecutive Hours (ICD-10-PCS; principal; 2019-05-01)
PROC: 0BH17EZ Insertion of Endotracheal Airway into Trachea, Via Natural or Artificial Opening (ICD-10-PCS; 2019-05-01)
PROC: 5A2204Z Restoration of Cardiac Rhythm, Single (ICD-10-PCS; 2019-05-01)
PROC: 4A033R1 Measurement of Arterial Saturation, Peripheral, Percutaneous Approach (ICD-10-PCS; 2019-05-02)
PROC: 0BP1XDZ Removal of Intraluminal Device from Trachea, External Approach (ICD-10-PCS; 2019-05-03)
DX: J96.00 Acute respiratory failure, unspecified whether with hypoxia or hypercapnia (principal); I47.1 Supraventricular tachycardia; D68.9 Coagulation defect, unspecified; I69.351 Hemiplegia and hemiparesis following cerebral infarction affecting right dominant side; I42.0 Dilated cardiomyopathy; K56.609 Unspecified intestinal obstruction, unspecified as to partial versus complete obstruction; Z79.899 Other long term (current) drug therapy; G40.909 Epilepsy, unspecified, not intractable, without status epilepticus; I48.0 Paroxysmal atrial fibrillation; E11.9 Type 2 diabetes mellitus without complications; D69.6 Thrombocytopenia, unspecified; E78.5 Hyperlipidemia, unspecified; I08.1 Rheumatic disorders of both mitral and tricuspid valves; K63.89 Other specified diseases of intestine
CPT/HCPCS: 36415; 36600; 70450; 71045; 74018; 74178; 80048; 80053; 80061; 80307; 81001; 82140; 82550; 82553; 82803; 82962; 83880; 84484; 85025; 85027; 85610; 85730; 87040; 93005; 93010; 93306; 94002; 94003; 94760; 95819; 96365; 96375; G0378; J0153; J0282; J1815; J1953; J2060; J2250; J2704; J7030; J7040; Q9967